=== PATIENT | male | born 1970 | race Hispanic/Latino ===

== ENCOUNTER 2022-03-18 23:35 | Observation (INO) | payer SELFPAY ==
[~2022-03-18] VITALS: Ht 167.6 cm; Wt 95.6 kg
[2022-03-19 00:27] LABS: CARBON DIOXIDE 28 mmol/L (21-32); CHLORIDE 106 mmol/L (101-111); CREATININE 0.9 mg/dL (0.5-1.5); GLOMERULAR FILTR. RATE CALC 94 mL/min (>60); GLUCOSE,RANDOM 97 mg/dL (70-105); POTASSIUM 3.7 mmol/L (3.5-5.1); SODIUM SERUM 140 mmol/L (136-145); UREA NITROGEN, BLOOD 10 mg/dL (7-18)
[2022-03-19 00:32] LABS: ACETAMINOPHEN < 1 mcg/mL (10-29); ALANINE AMINOTRANSFERASE 26 U/L (12-78); ALBUMIN 3.4 g/dL (3.5-5.0); ALCOHOL, BLOOD < 3 mg/dL (0-10); ASPARTATE AMINOTRANSFERASE 16 U/L (10-37); BASOPHILS % (AUTO) 0.4 % (0.0-5.0); EOSINOPHILS % (AUTO) 3.2 % (0.0-8.0); HEMATOCRIT 43.7 % (42-54); LYMPHOCYTES % (AUTO) 23.2 % (21.0-51.0); MEAN CORPUSCULAR HEMOGLOBIN 30.6 pg (27.0-33.0); MEAN CORPUSCULAR HGB CONC 35.2 g/dL (32.0-36.0); MEAN CORPUSCULAR VOLUME 86.9 fL (79-99); MONOCYTES % (AUTO) 8.3 % (3.0-13.0); NEUTROPHILS % (AUTO) 64.7 % (40.0-77.0); PLATELET COUNT (AUTO) 219 K/uL (130-400); RED BLOOD CELL COUNT(AUTO) 5.03 MIL/uL (4.50-6.20); RED CELL DISTRIBUTION WIDTH 11.8 % (11.0-15.5); SALICYLATE 2.8 mg/dL (2.8-20.0); TOTAL PROTEIN, SERUM 6.4 g/dL (6.0-8.3); WHITE BLOOD COUNT (AUTO) 5.6 K/uL (4.8-10.8)
[2022-03-19 01:00] LABS: APPEARANCE,URINE CLEAR (CLEAR); BILIRUBIN,URINE NEGATIVE (NEGATIVE); COLOR,URINE COLORLESS (YELLOW); GLUCOSE, URINE (UA) NEGATIVE (NEGATIVE); KETONES,URINE NEGATIVE (NEGATIVE); LEUKOCYTE ESTERASE ,URINE NEGATIVE Leu/uL (NEGATIVE); NITRATE,URINE NEGATIVE (NEGATIVE); OCCULT BLOOD,URINE NEGATIVE (NEGATIVE); PH,URINE 5.5 (5.0-8.0); PROTEIN,URINE NEGATIVE (NEGATIVE); UROBILINOGEN,URINE 0.2 mg/dL (0.2-1.0)
[2022-03-19 01:08] LABS: AMPHET/METH SCREEN,URINE POSITIVE (NEGATIVE); BARBITURATE SCREEN, URINE NEGATIVE (NEGATIVE); BENZODIAZEPINES SCREEN,URINE NEGATIVE (NEGATIVE); CANNABINOID SCREEN,URINE NEGATIVE (NEGATIVE); COCAINE SCREEN,URINE NEGATIVE (NEGATIVE); OPIATE SCREEN,URINE NEGATIVE (NEGATIVE); PHENCYCLIDINE SCREEN,URINE NEGATIVE (NEGATIVE)
[2022-03-19] MEDS ORDERED: GUAIFENESIN-DM 200/20 MG 10 ML PO PRN (06:00)
[2022-03-19] MEDS ORDERED: ACETAMINOPHEN 325 MG TAB PO PRN (06:00)
[2022-03-19] MEDS ORDERED: LACTULOSE 20 GM/30 ML UDCUP PO PRN (06:00)
[2022-03-19] MEDS ORDERED: DIPHENHYDRAMINE HCL 25 MG CAPSULE PO PRN (06:00)
[2022-03-19] MEDS ORDERED: NITROGLYCERIN 0.4 MG SL TAB SL PRN (06:00)
[2022-03-19] MEDS ORDERED: ONDANSETRON 4MG INJ IV PRN (06:00)
[2022-03-19] MEDS: 0.9%NACL 1000ML 1,000 ML IV SCH ×2 (08:00→19:20)
[2022-03-19] MEDS: FAMOTIDINE 20MG VIAL IV SCH ×2 (08:00→21:00)
[2022-03-19] MEDS ORDERED: MAGN400T25 PO (18:37)
[2022-03-19] MEDS ORDERED: QUET100T34 PO (18:37)
[2022-03-19] MEDS ORDERED: ESCI-8 PO (18:37)
[2022-03-19 19:00] VITALS: BP 132/77
[2022-03-19 23:00] VITALS: BP 106/64
[2022-03-20 03:29] VITALS: BP 112/72
[2022-03-20] MEDS: 0.9%NACL 1000ML 1,000 ML IV SCH (05:55)
[2022-03-20 07:37] VITALS: BP 109/70
[2022-03-20] MEDS: FAMOTIDINE 20MG VIAL IV SCH (08:45)
[2022-03-20 11:17] VITALS: BP 122/69
[2022-03-20 17:00] VITALS: BP 132/76
[2022-03-20 19:00] VITALS: BP 125/76
== END 2022-03-20 19:45 ==
LOC: EDH 23:35 → EDHIP 23:36 → 3DH 03-19 18:07
PROVIDERS: ADMIT Hospitalist; ATTEND Hospitalist
DX: R45.851 Suicidal ideations (principal); Z20.822 Contact with and (suspected) exposure to COVID-19; T43.591A Poisoning by other antipsychotics and neuroleptics, accidental (unintentional), initial encounter; T47.1X1A Poisoning by other antacids and anti-gastric-secretion drugs, accidental (unintentional), initial encounter; F41.9 Anxiety disorder, unspecified; F32.9 Major depressive disorder, single episode, unspecified; F10.10 Alcohol abuse, uncomplicated; R41.82 Altered mental status, unspecified; Z79.899 Other long term (current) drug therapy
CPT/HCPCS: 96374; 96361 ×2; 99285; 84484; 80053; 80305; 82140; 85025; 81003; 36415; 87635; 70450; 93005; 96376; G0378 ×37; G0481; C9803; J3490 ×2; J7030

== ENCOUNTER 2023-01-22 08:37 | Emergency (ER) | payer OTHER ==
[~2023-01-22] VITALS: Ht 167.6 cm; Wt 105.2 kg
[~2023-01-22 08:37] MED LIST: ESCI-8 PO; MAGN400T25 PO
[2023-01-22] MEDS ORDERED: FAMOTIDINE 20MG VIAL IV ONE (09:30)
[2023-01-22] MEDS ORDERED: METOCLOPRAMIDE 10 MG/2 ML VIAL IVP ONE (09:30)
[2023-01-22] MEDS ORDERED: LACTATED RINGERS 1000ML 1,000 ML IV ONE (09:30)
[2023-01-22] MEDS ORDERED: KETOROLAC 30MG VIAL (30MG/ML) IVP ONE (09:30)
[2023-01-22 09:34] LABS: BASOPHILS # (AUTO) 0.02 K/uL (0.00-0.20); BASOPHILS % (AUTO) 0.3 % (0.0-5.0); EOSINOPHILS # (AUTO) 0.15 K/uL (0.00-0.70); EOSINOPHILS % (AUTO) 2.5 % (0.0-8.0); IMMATURE GRANULOCYTE ABSOLUTE 0.03 K/uL (0-1); LYMPHOCYTES # (AUTO) 1.5 K/uL (1.0-4.8); LYMPHOCYTES % (AUTO) 24.3 % (21.0-51.0); MEAN CORPUSCULAR HEMOGLOBIN 30.5 pg (27.0-33.0); MEAN CORPUSCULAR HGB CONC 34.3 g/dL (32.0-36.0); MEAN CORPUSCULAR VOLUME 88.9 fL (79-99); MONOCYTES # (AUTO) 0.5 K/uL (0.1-1.0); MONOCYTES % (AUTO) 8.5 % (3.0-13.0); NEUTROPHILS # (AUTO) 3.8 K/uL (1.8-7.7); NEUTROPHILS % (AUTO) 63.9 % (40.0-77.0); PLATELET COUNT (AUTO) 213 K/uL (130-400); RED BLOOD CELL COUNT(AUTO) 4.95 MIL/uL (4.50-6.20); RED CELL DISTRIBUTION WIDTH 12.3 % (11.0-15.5)
[2023-01-22 09:46] LABS: ALBUMIN 3.4 g/dL (3.5-5.0); BILIRUBIN,TOTAL 0.5 mg/dL (0.2-1.0); TOTAL PROTEIN, SERUM 6.7 g/dL (6.0-8.3)
[2023-01-22 10:33] LABS: APPEARANCE,URINE CLEAR (CLEAR); BILIRUBIN,URINE NEGATIVE (NEGATIVE); COLOR,URINE LIGHT-YELLOW (YELLOW); GLUCOSE, URINE (UA) NEGATIVE (NEGATIVE); KETONES,URINE NEGATIVE (NEGATIVE); LEUKOCYTE ESTERASE ,URINE NEGATIVE Leu/uL (NEGATIVE); NITRATE,URINE NEGATIVE (NEGATIVE); OCCULT BLOOD,URINE NEGATIVE (NEGATIVE); PROTEIN,URINE NEGATIVE (NEGATIVE); UROBILINOGEN,URINE 0.2 mg/dL (0.2-1.0)
[2023-01-22 10:39] LABS: ADD UA MICROSCOPIC NO
[2023-01-22] MEDS ORDERED: IOHEXOL 350 MG/ML 100ML INFUS..BTL IV ONE (11:50)
[2023-01-22 13:26] VITALS: BP 131/76; PULSE 71; RESP 16; O2SAT 99
== END 2023-01-22 13:28 | disposition home or self-care (01) ==
LOC: EDH 08:37
DX: K92.1 Melena (principal); K46.9 Unspecified abdominal hernia without obstruction or gangrene; Z79.899 Other long term (current) drug therapy; Z98.890 Other specified postprocedural states
CPT/HCPCS: 99285; 74178; 96374; 96375; 82270; 84484; 80053; 85025; 81003; 36415; 93005; J7120; J3490; J1885; J2765; Q9967

== ENCOUNTER 2024-04-19 20:00 | Emergency (ER) | payer BC ==
[~2024-04-19] VITALS: Ht 167.6 cm; Wt 100.2 kg
[2024-04-19 20:03] VITALS: BP 144/92; PULSE 68; RESP 20; TEMP 97
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
[2024-04-19] MEDS ORDERED: FAMOTIDINE 20MG VIAL IV ONE (20:30)
[2024-04-19 20:47] LABS: BASOPHILS # (AUTO) 0.03 K/uL (0.00-0.20); BASOPHILS % (AUTO) 0.4 % (0.0-5.0); EOSINOPHILS # (AUTO) 0.28 K/uL (0.00-0.70); EOSINOPHILS % (AUTO) 3.9 % (0.0-8.0); IMMATURE GRANULOCYTE ABSOLUTE 0.03 K/uL (0-1); LYMPHOCYTES # (AUTO) 1.2 K/uL (1.0-4.8); LYMPHOCYTES % (AUTO) 17.4 % (21.0-51.0); MEAN CORPUSCULAR HEMOGLOBIN 28.9 pg (27.0-33.0); MEAN CORPUSCULAR HGB CONC 32.7 g/dL (32.0-36.0); MEAN CORPUSCULAR VOLUME 88.4 fL (79-99); MONOCYTES # (AUTO) 0.6 K/uL (0.1-1.0); MONOCYTES % (AUTO) 8.4 % (3.0-13.0); NEUTROPHILS # (AUTO) 4.9 K/uL (1.8-7.7); NEUTROPHILS % (AUTO) 69.5 % (40.0-77.0); PLATELET COUNT (AUTO) 249 K/uL (130-400); RED BLOOD CELL COUNT(AUTO) 5.09 MIL/uL (4.50-6.20); RED CELL DISTRIBUTION WIDTH 12.7 % (11.0-15.5); WHITE BLOOD COUNT (AUTO) 7.1 K/uL (4.8-10.8)
[2024-04-19 20:56] LABS: POTASSIUM 4.5 mmol/L (3.5-5.1)
== END 2024-04-20 01:01 | disposition left against medical advice (07) ==
LOC: EDH 20:00
DX: K62.5 Hemorrhage of anus and rectum (principal); R10.84 Generalized abdominal pain; R11.2 Nausea with vomiting, unspecified; Z79.899 Other long term (current) drug therapy; Z98.890 Other specified postprocedural states
CPT/HCPCS: 36415; 80048; 83690; 85025; 99283

== ENCOUNTER 2025-01-27 12:07 | Inpatient (IN) | payer BC ==
[~2025-01-27] VITALS: Ht 167.6 cm; Wt 60.9 kg
[~2025-01-27 12:07] MED LIST changes: +DICY20TA2 PO; +DOCU-116 PO; -ESCI-8 PO; +FERR325T29 PO; +GABA-529 PO; -MAGN400T25 PO; +MELA1TAB52 PO; +METH-662 PO; +ONDA-243 PO; +PANT40TA54 PO; +TRAM100T34 PO
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
[2025-01-27] MEDS: 0.9%NACL 1000ML 1,000 ML IV ONE (12:46)
[2025-01-27] MEDS: FAMOTIDINE 20MG VIAL IV ONE (12:46)
[2025-01-27 12:55] LABS: IMMATURE GRANULOCYTE ABSOLUTE 0.01 K/uL (0-1); NUCLEATED RED BLOOD CELLS 0.0 % (0.0-0.19); PLATELET COUNT (AUTO) 333 K/uL (130-400); RED BLOOD CELL COUNT(AUTO) 5.39 MIL/uL (4.50-6.20); RED CELL DISTRIBUTION WIDTH 15.3 % (11.0-15.5); WHITE BLOOD COUNT (AUTO) 4.1 K/uL (4.8-10.8)
[2025-01-27 13:04] LABS: CREATININE 0.9 mg/dL (0.5-1.3); GLOMERULAR FILTR. RATE CALC 100.0 mL/min (>90); GLUCOSE,RANDOM 102.0 mg/dL (70-105); SODIUM SERUM 136.0 mmol/L (136-145); UREA NITROGEN, BLOOD 24.0 mg/dL (7-18)
--- NOTE | 2025-01-27 13:13 | EKG ---
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
[2025-01-27] MEDS ORDERED: IOHEXOL-350 75 ML VIAL IV ONE (13:54)
[2025-01-27 14:11] LABS: APPEARANCE,URINE CLEAR (CLEAR); GLUCOSE, URINE (UA) NEGATIVE (NEGATIVE); LEUKOCYTE ESTERASE ,URINE 75 Leu/uL (NEGATIVE); NITRATE,URINE NEGATIVE (NEGATIVE); OCCULT BLOOD,URINE NEGATIVE (NEGATIVE)
[2025-01-27 14:13] LABS: ADD UA MICROSCOPIC YES
--- NOTE | 2025-01-27 14:17 | HMCIMG ---
CT ABDOMEN/PELVIS W/CONTRAST REASON: DIFFUSE ABDOMINAL PAIN WITH NAUSEA VOMITING FOUR DAYS HISTORY OF SBO COMPARISON: None. FINDINGS: Lung bases are clear.. There is small left-sided pleural effusion. There are no focal liver lesions. There are normal-appearing kidneys.. Spleen and pancreas appear unremarkable. The gallbladder appears normal as well. The small bowel is a very dilated and distended suggesting of small bowel obstruction. There is no evidence of any free air. There is no transition zone identified.. This includes normal appearance of the appendix There is no evidence of free fluid or intraperitoneal air. There are no focal fluid collections. Aorta and retroperitoneum appear normal as do pelvic soft tissue structures. The anterior abdominal wall is intact. Osseous structures appear unremarkable. The prostate and seminal vesicle appears to be normal. IMPRESSION: 1. Severe small bowel obstruction with dilatation of small bowels with air-fluid levels.. CT was performed with one or more following dose reduction techniques: automated exposure control, adjustment of the mA and kv according to patient's size, or use of a iterative reconstruction technique.
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
[2025-01-27] MEDS ORDERED: 0.9%NACL 50ML IV SCH (16:00)
[2025-01-27] MEDS ORDERED: PoTASSium chl 10% ELIXIR 20MEQ 20 MEQ/15 ML UDCUP PO PRN (16:00)
[2025-01-27] MEDS: ZOSYN 3.375GM +NS 50ML IVPB SCH (16:41)
[2025-01-27] MEDS: 0.9%NACL 1000ML 1,000 ML IV SCH (16:42)
--- NOTE | 2025-01-27 18:41 | NUR ---
DR. GAGE BY TO SEE PT.
--- NOTE | 2025-01-27 19:00 | NUR ---
14F NG TUBE PLACED , CONFIRMED BY XRAY PER DR ECKERT ORDER
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
--- NOTE | 2025-01-27 19:45 | HMCIMG ---
EXAM: Abdomen radiograph 1 view HISTORY: NGT placement COMPARISON: None TECHNIQUE: Supine view of the abdomen FINDINGS: Enteric tube tip overlies the stomach. No small bowel dilatation. Air seen in the colon. Contrast seen in the ureters and bladder. Degenerative changes. IMPRESSION: Enteric tube tip overlies the stomach. /[place]
[2025-01-27] MEDS: FAMOTIDINE 20MG VIAL IV SCH (20:47)
[2025-01-28] VITALS (9 sets, daily range): BP systolic 100–136; BP diastolic 64–84; PULSE 44–61; RESP 18–20; TEMP 96.6–98.1; O2SAT 97–100
[2025-01-28 00:02] LABS: SARS-CoV-2, RNA, NAAT NEGATIVE SARS CoV-2 (NEGATIVE)
--- NOTE | 2025-01-28 02:56 | NUR ---
PATIENT REPORTS HE DOES NOT TAKE PRESCRIBED MEDICATIONS
[2025-01-28] MEDS: ZOSYN 3.375GM +NS 50ML IVPB SCH (04:52)
[2025-01-28 07:16] LABS: IMMATURE GRANULOCYTE ABSOLUTE 0.02 K/uL (0-1); NUCLEATED RED BLOOD CELLS 0.0 % (0.0-0.19); PLATELET COUNT (AUTO) 258 K/uL (130-400); RED BLOOD CELL COUNT(AUTO) 4.71 MIL/uL (4.50-6.20); RED CELL DISTRIBUTION WIDTH 15.6 % (11.0-15.5); WHITE BLOOD COUNT (AUTO) 4.9 K/uL (4.8-10.8)
[2025-01-28 07:26] LABS: CREATININE 1.0 mg/dL (0.5-1.3); GLOMERULAR FILTR. RATE CALC 88.0 mL/min (>90); GLUCOSE,RANDOM 84.0 mg/dL (70-105); SODIUM SERUM 141.0 mmol/L (136-145); UREA NITROGEN, BLOOD 16.0 mg/dL (7-18)
[2025-01-28] MEDS ORDERED: FERROUS SULFATE 325 MG TABLET.DR PO SCH (09:00)
[2025-01-28] MEDS ORDERED: DICYCLOMINE HCL 20 MG TAB PO SCH (09:00)
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
--- NOTE | 2025-01-28 09:57 | HMCIMG ---
CT ABDOMEN/PELVIS W/O CONTRAST REASON: SBO COMPARISON: None. FINDINGS: Lung bases demonstrate small left-sided pleural effusion. The remaining lung barton are clear. There is a nasogastric tube with the tip in the stomach. . There are no focal liver lesions. There are normal-appearing kidneys.. Spleen and pancreas appear unremarkable. The gallbladder demonstrates sludge and small stones seen in the dependent portion of the gallbladder lumen.. Bowel loops appear unremarkable. This includes normal appearance of the appendix There is no evidence of free fluid or intraperitoneal air. There are no focal fluid collections. Aorta and retroperitoneum appear normal as do pelvic soft tissue structures. The anterior abdominal wall is intact. Osseous structures appear unremarkable. The prostate and seminal vesicle appears to be normal. The urinary bladder has contrast from prior contrast study. There is subcutaneous fat stranding suggesting of anasarca. Patient appears to be cachectic. IMPRESSION: 1. Cholelithiasis 2. Anasarca. 3. There is a nasogastric tube with the tip in the stomach. 4. Small left-sided pleural effusion. CT was performed with one or more following dose reduction techniques: automated exposure control, adjustment of the mA and kv according to patient's size, or use of a iterative reconstruction technique.
--- NOTE | 2025-01-28 11:33 | NUR ---
DCP:HOME Pt currently lives with his ex- Olivia Vasquez [phone]. Pt does not have any DME, home health, or provider services. Pt states that he is able to complete ADLs independently. PCP is Dr. Sams and uses [facility] for any RX needs. At [place] pt will want to go home and family can assist with transportation. Addendum: 01/28/25 at 1134 by COREY PHAN SS Amended: Links added.
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
--- NOTE | 2025-01-28 12:33 | NUR ---
MD HARSH ALVAREZ AT BEDSIDE. PER DR. ALVAREZ HR IS BASELINE. PT EXERCISES AT HOME. PER DR. ALVAREZ, OKAY TO GIVE MORPHINE FOR PAIN. NO FURTHER ORDERS AT THIS TIME.
[2025-01-29] VITALS (8 sets, daily range): BP systolic 112–132; BP diastolic 72–93; PULSE 48–55; RESP 18–20; TEMP 97.5–98.4; O2SAT 96–99
[2025-01-29 05:25] LABS: IMMATURE GRANULOCYTE ABSOLUTE 0.01 K/uL (0-1); NUCLEATED RED BLOOD CELLS 0.0 % (0.0-0.19); PLATELET COUNT (AUTO) 251 K/uL (130-400); RED BLOOD CELL COUNT(AUTO) 4.51 MIL/uL (4.50-6.20); RED CELL DISTRIBUTION WIDTH 15.2 % (11.0-15.5); WHITE BLOOD COUNT (AUTO) 4.5 K/uL (4.8-10.8)
[2025-01-29 05:40] LABS: ASPARTATE AMINOTRANSFERASE 14.0 U/L (10-37); CREATININE 1.0 mg/dL (0.5-1.3); GLOMERULAR FILTR. RATE CALC 88.0 mL/min (>90); GLUCOSE,RANDOM 77.0 mg/dL (70-105); SODIUM SERUM 141.0 mmol/L (136-145); TOTAL PROTEIN, SERUM 4.7 g/dL (6.0-8.3); UREA NITROGEN, BLOOD 15.0 mg/dL (7-18)
[2025-01-29] MEDS: ENOXAPARIN SODIUM 30 MG/0.3 ML SQ SCH (08:49)
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
--- NOTE | 2025-01-29 12:30 | PN ---
GENERAL SURGERY PROGRESS NOTE Date/Time Patient Seen: [January 29, 2025 ] Problem List: [Partial bowel obstruction ] Interval History: [Patient had flatus and small bowel movement. A CT scan was repeated. Still shows some dilated small loops of bowel. NG tube output is minimal. Patient denies any abdominal pain. ] Current Medications Medications (Trade) Dose Ordered Sig/Kenneth Route Start Time Stop Time Status Last Admin Dose Admin Dicyclomine HCl (Bentyl 20mg Tab) 20 mg QID PO 01/28/25 09:00 01/28/25 09:23 DC Docusate Sodium (COLace 100MG CAP) 100 mg BID PO 01/28/25 09:00 01/28/25 09:22 DC Enoxaparin Sodium (Lovenox) 30 mg DAILY SQ 01/29/25 09:00 02/28/25 08:59 01/29/25 08:49 30 MG Famotidine (Pepcid 20mg Vial) 20 mg BID IV 01/27/25 21:00 01/28/25 06:32 DC 01/27/25 20:47 20 MG Ferrous Sulfate (Ferrous Sulfate) 325 mg DAILY PO 01/28/25 09:00 01/28/25 09:21 DC Gabapentin (NEURontin 100 mg CAP) 100 mg TID PO 01/28/25 09:00 01/28/25 09:21 DC Pantoprazole Sodium (PROTonix 40MG TAB) 40 mg DAILY PO 01/28/25 09:00 01/28/25 09:21 DC Piperacillin Sod/ Tazobactam Sod (Zosyn 3.375gm+NS 50ml) 3.375 gm ONCE IVPB 01/27/25 16:30 01/27/25 22:30 DC 01/27/25 16:41 3.375 GM Piperacillin Sod/ Tazobactam Sod (Zosyn 3.375gm+NS 50ml) 3.375 gm ZOSY8 IVPB 01/28/25 05:00 02/07/25 04:59 01/29/25 04:46 3.375 GM Sodium Chloride 1,000 ml @ 125 mls/hr Q8H IV 01/27/25 16:00 02/26/25 15:59 01/29/25 01:32 125 MLS/HR Sodium Chloride (NS 50ml) 50 ml AD IV 01/27/25 16:00 01/28/25 06:31 DC Physical Examination: Awake, alert, oriented x3 Unlabored Regular rate and rhythm Abdomen soft, nontender Vital Signs (last 8hr) Date Time Temp Pulse Resp B/P (MAP) Pulse Ox O2 Delivery O2 Flow Rate FiO2 01/29/25 08:37 97.9 48 18 112/75 99 Room Air Laboratory: [ ] Hematology Labs: Test 01/29/25 04:53 Range/Units White Blood Count 4.5 L 4.8-10.8 K/uL Red Blood Count 4.51 4.50-6.20 MIL/uL Hemoglobin 12.7 L 14.0-18.0 g/dL Hematocrit 37.8 L 42-54 % Mean Corpuscular Volume 83.8 79-99 fL Mean Corpuscular Hemoglobin 28.2 27.0-33.0 pg Mean Corpuscular Hemoglobin Concent 33.6 32.0-36.0 g/dL Red Cell Distribution Width 15.2 11.0-15.5 % Platelet Count 251 130-400 K/uL Mean Platelet Volume 9.4 7.5-10.5 fL Immature Granulocyte % (Auto) 0.2 0-1 % Neutrophils (%) (Auto) 68.3 40.0-77.0 % Lymphocytes (%) (Auto) 17.8 L 21.0-51.0 % Monocytes (%) (Auto) 9.1 3.0-13.0 % Eosinophils (%) (Auto) 4.2 0.0-8.0 % Basophils (%) (Auto) 0.4 0.0-5.0 % Neutrophils # (Auto) 3.1 1.8-7.7 K/uL Lymphocytes # (Auto) 0.8 L 1.0-4.8 K/uL Monocytes # (Auto) 0.4 0.1-1.0 K/uL Eosinophils # (Auto) 0.19 0.00-0.70 K/uL Basophils # (Auto) 0.02 0.00-0.20 K/uL Absolute Immature Granulocyte (auto 0.01 0-1 K/uL Nucleated Red Blood Cells 0.0 0.0-0.19 % Chemistry Labs: Test 01/29/25 11:14 01/29/25 04:53 01/27/25 16:45 01/27/25 12:45 Range/Units Whole Blood Glucose 86 70-110 MG/DL Sodium Level 141 136-145 mmol/L Potassium Level 3.2 L 3.5-5.1 mmol/L Chloride Level 108 101-111 mmol/L Carbon Dioxide Level 28 21-32 mmol/L Blood Urea Nitrogen 15 7-18 mg/dL Creatinine 1.0 0.5-1.3 mg/dL Glomerular Filtration Rate Calc 88 >90 mL/min Random Glucose 77 70-105 mg/dL Total Calcium 8.8 8.5-10.1 mg/dL Magnesium Level 1.90 1.80-2.40 mg/dL Total Bilirubin 0.5 0.2-1.0 mg/dL Aspartate Amino Transf (AST/SGOT) 14 10-37 U/L Alanine Aminotransferase (ALT/SGPT) 15 12-78 U/L Alkaline Phosphatase 78 50-136 U/L Total Protein 4.7 L 6.0-8.3 g/dL Albumin 2.1 L 3.5-5.0 g/dL Lactic Acid Level 1.2 0.8-2.5 mmol/L C-Reactive Protein, Quantitative 0.80 0.5-3.0 mg/L Procalcitonin < 0.05 L 0.05-0.5 ng/mL Thyroid Stimulating Hormone (TSH) 1.06 0.36-3.74 uIU/mL Hemoglobin A1c 5.2 4.0-6.0 % Estimated Average Glucose (eAG) 103 70-126 mg/dL Lipase 15 L 16-77 U/L Diagnostics / Radiology: [Copy/Paste Echos/Imaging Report here] Impression and Plan: [Patient with a partial bowel obstruction. Continue NG tube for now. Ambulate. Pulmonary toilet. We will try an NG tube clamp trial tomorrow. ] STANLEY ALLISON MD Jan 29, 2025 12:30
--- NOTE | 2025-01-29 20:40 | NUR ---
MEDS PT BACK IN ROOM AFTER WALKING THE FLOOR. SHIFT ASSESSMENT DONE, PLEASE REFER TO CHART. DUE MEDS ADMINISTERED, TOLERATED WELL. KEPT RESTED AND COMFORTABLE IN BED. CALL LIGHT WITHIN REACH.
[2025-01-29] MEDS: MAGNESIUM 2GM PREMIX 50ML 50 ML IV PRN (20:41)
[2025-01-30] VITALS (8 sets, daily range): BP systolic 107–125; BP diastolic 63–81; PULSE 45–80; RESP 18–20; TEMP 97.7–98.2; O2SAT 95–96
--- NOTE | 2025-01-30 01:39 | NUR ---
PAIN PT AWAKENED AND CLAIMS OF ABDOMINAL PAINS. MEDICATED WITH MORPHINE IV. RE-POSITIONED IN BED WITH HOB ELEVATED. KEPT NPO WITH NGT TO LIS. WILL RE-ASSESS PT.
--- NOTE | 2025-01-30 05:00 | NUR ---
ROUNDS PT SLEPT AT INTERVALS DURING THE SHIFT. NO DISTRESS NOTED. KEPT COMFORTABLE IN BED WITH HOB ELEVATED. DUE AMOL FONTAINE. FOR MORE CARE.
[2025-01-30 06:37] LABS: IMMATURE GRANULOCYTE ABSOLUTE 0.01 K/uL (0-1); NUCLEATED RED BLOOD CELLS 0.0 % (0.0-0.19); PLATELET COUNT (AUTO) 260 K/uL (130-400); RED BLOOD CELL COUNT(AUTO) 4.61 MIL/uL (4.50-6.20); RED CELL DISTRIBUTION WIDTH 15.3 % (11.0-15.5); WHITE BLOOD COUNT (AUTO) 4.2 K/uL (4.8-10.8)
[2025-01-30 06:55] LABS: ASPARTATE AMINOTRANSFERASE 15.0 U/L (10-37); CREATININE 1.0 mg/dL (0.5-1.3); GLOMERULAR FILTR. RATE CALC 88.0 mL/min (>90); GLUCOSE,RANDOM 98.0 mg/dL (70-105); SODIUM SERUM 145.0 mmol/L (136-145); TOTAL PROTEIN, SERUM 4.9 g/dL (6.0-8.3); UREA NITROGEN, BLOOD 11.0 mg/dL (7-18)
--- NOTE | 2025-01-30 13:28 | PN ---
GENERAL SURGERY PROGRESS NOTE Date/Time Patient Seen: [January 30, 2025 ] Problem List: [Partial bowel obstruction ] Interval History: [Patient had two bowel movements yesterday after Dulcolax suppository. NG tube clamp trial overnight has negligible output.. ] Current Medications Medications (Trade) Dose Ordered Sig/Kenneth Route Start Time Stop Time Status Last Admin Dose Admin Dicyclomine HCl (Bentyl 20mg Tab) 20 mg QID PO 01/28/25 09:00 01/28/25 09:23 DC Docusate Sodium (COLace 100MG CAP) 100 mg BID PO 01/28/25 09:00 01/28/25 09:22 DC Enoxaparin Sodium (Lovenox) 30 mg DAILY SQ 01/29/25 09:00 02/28/25 08:59 01/30/25 08:58 30 MG Famotidine (Pepcid 20mg Vial) 20 mg BID IV 01/27/25 21:00 01/28/25 06:32 DC 01/27/25 20:47 20 MG Ferrous Sulfate (Ferrous Sulfate) 325 mg DAILY PO 01/28/25 09:00 01/28/25 09:21 DC Gabapentin (NEURontin 100 mg CAP) 100 mg TID PO 01/28/25 09:00 01/28/25 09:21 DC Pantoprazole Sodium (PROTonix 40MG TAB) 40 mg DAILY PO 01/28/25 09:00 01/28/25 09:21 DC Piperacillin Sod/ Tazobactam Sod (Zosyn 3.375gm+NS 50ml) 3.375 gm ONCE IVPB 01/27/25 16:30 01/27/25 22:30 DC 01/27/25 16:41 3.375 GM Piperacillin Sod/ Tazobactam Sod (Zosyn 3.375gm+NS 50ml) 3.375 gm [id number] IVPB 01/28/25 05:00 02/07/25 04:59 01/30/25 04:54 3.375 GM Sodium Chloride 1,000 ml @ 125 mls/hr Q8H IV 01/27/25 16:00 02/26/25 15:59 01/30/25 04:56 125 MLS/HR Sodium Chloride (NS 50ml) 50 ml AD IV 01/27/25 16:00 01/28/25 06:31 DC Physical Examination: Awake, alert, oriented x3 Unlabored Regular rate and rhythm Abdomen soft, nontender, nondistended Vital Signs (last 8hr) Date Time Temp Pulse Resp B/P (MAP) Pulse Ox O2 Delivery O2 Flow Rate FiO2 01/30/25 12:00 98.1 45 18 115/69 98 Room Air 01/30/25 08:00 98.2 80 18 125/81 98 Laboratory: [ ] Hematology Labs: Test 01/30/25 06:07 Range/Units White Blood Count 4.2 L 4.8-10.8 K/uL Red Blood Count 4.61 4.50-6.20 MIL/uL Hemoglobin 13.1 L 14.0-18.0 g/dL Hematocrit 38.9 L 42-54 % Mean Corpuscular Volume 84.4 79-99 fL Mean Corpuscular Hemoglobin 28.4 27.0-33.0 pg Mean Corpuscular Hemoglobin Concent 33.7 32.0-36.0 g/dL Red Cell Distribution Width 15.3 11.0-15.5 % Platelet Count 260 130-400 K/uL Mean Platelet Volume 9.5 7.5-10.5 fL Immature Granulocyte % (Auto) 0.2 0-1 % Neutrophils (%) (Auto) 62.3 40.0-77.0 % Lymphocytes (%) (Auto) 21.9 21.0-51.0 % Monocytes (%) (Auto) 9.6 3.0-13.0 % Eosinophils (%) (Auto) 5.3 0.0-8.0 % Basophils (%) (Auto) 0.7 0.0-5.0 % Neutrophils # (Auto) 2.6 1.8-7.7 K/uL Lymphocytes # (Auto) 0.9 L 1.0-4.8 K/uL Monocytes # (Auto) 0.4 0.1-1.0 K/uL Eosinophils # (Auto) 0.22 0.00-0.70 K/uL Basophils # (Auto) 0.03 0.00-0.20 K/uL Absolute Immature Granulocyte (auto 0.01 0-1 K/uL Nucleated Red Blood Cells 0.0 0.0-0.19 % Chemistry Labs: Test 01/30/25 06:07 01/29/25 11:14 Range/Units Sodium Level 145 136-145 mmol/L Potassium Level 3.6 3.5-5.1 mmol/L Chloride Level 110 101-111 mmol/L Carbon Dioxide Level 31 21-32 mmol/L Blood Urea Nitrogen 11 7-18 mg/dL Creatinine 1.0 0.5-1.3 mg/dL Glomerular Filtration Rate Calc 88 >90 mL/min Random Glucose 98 70-105 mg/dL Total Calcium 8.8 8.5-10.1 mg/dL Magnesium Level 2.20 1.80-2.40 mg/dL Total Bilirubin 0.5 0.2-1.0 mg/dL Aspartate Amino Transf (AST/SGOT) 15 10-37 U/L Alanine Aminotransferase (ALT/SGPT) 14 12-78 U/L Alkaline Phosphatase 71 50-136 U/L Total Protein 4.9 L 6.0-8.3 g/dL Albumin 2.1 L 3.5-5.0 g/dL Whole Blood Glucose 86 70-110 MG/DL Diagnostics / Radiology: [Copy/Paste Echos/Imaging Report here] Impression and Plan: [We will continue the NG tube clamped. We will give the patient a bowel regimen. The patient continues to have bowel function we will then DC the NG tube and start him on clear liquids. Ambulate. Pulmonary toilet. ] STANLEY ALLISON MD Jan 30, 2025 13:28
[2025-01-30] MEDS: LACTULOSE 20 GM/30 ML UDCUP PO ONE (14:33)
[2025-01-30] MEDS: MAGNESIUM HYDROXIDE 30 ML/UDCUP PO ONE (14:34)
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
--- NOTE | 2025-01-30 16:57 | NUR ---
NG TUBE PT REPORTS GAS. SMALL LIQUID BM NOTED IN TOILET. DR. ALLISON MADE AWARE. PER DR. ALLISON TO CHECK OUTPUT. OUTPUT: 250ML DARK GREEN COLOR. DR. BALLARD MADE AWARE. PER DR. BALLARD TO KEEP NGT IN PLACE. TO LEAVE CLAMPED, IF PT IS HAVING ABDOMINAL PAIN TO CONNECT TO SUCTION. PT REPORTS ABDOMINAL PAIN. PT CONNECTED TO LOW INTERMITTENT SUCTION AT THIS TIME,
--- NOTE | 2025-01-30 19:40 | NUR ---
MEDS PT IS IN BED ALREADY RESTING. SHIFT ASSESSMENT DONE, PLEASE REFER TO CHART. DUE DEISY FONTAINE. KEPT ON NPO STATUS. KEPT COMFORTABLE IN BED WITH HOB ELEVATED. CALL LIGHT WITHIN REACH.
[2025-01-31] VITALS (9 sets, daily range): BP systolic 118–133; BP diastolic 71–88; PULSE 50–67; RESP 18–21; TEMP 97.6–98.4; O2SAT 97–99
--- NOTE | 2025-01-31 05:00 | NUR ---
PIV PT WALKED TO NURSE'S STATION AND SHOWED DIRECTOR OF ANNUAL GIVING LEAKING PIV. PT REQUESTED TO SHOWER YET BEFORE RE-INSERTION OF PIV. PIV DISCONTINUED WITH CATHETER INTACT. PCP IN TO ASSIST WITH LINEN AND FOR PT'S SHOWER.
--- NOTE | 2025-01-31 05:15 | NUR ---
PIV TRIED TO RE-INSERT PIV BUT FAILED. ASKED JASON ROLLE TO TRY RE-INSERTION AND SUCCESSFULLY INSERTED G20 TO ALISIA. RE-STARTED IVF AND IV ZOSYN INFUSION. FOR MORE CARE.
[2025-01-31 05:41] LABS: NUCLEATED RED BLOOD CELLS 0.0 % (0.0-0.19); PLATELET COUNT (AUTO) 236.0 K/uL (130-400); RED BLOOD CELL COUNT(AUTO) 4.49 MIL/uL (4.50-6.20); RED CELL DISTRIBUTION WIDTH 15.2 % (11.0-15.5); WHITE BLOOD COUNT (AUTO) 4.2 K/uL (4.8-10.8)
[2025-01-31 06:13] LABS: ASPARTATE AMINOTRANSFERASE 14.0 U/L (10-37); CREATININE 1.0 mg/dL (0.5-1.3); GLOMERULAR FILTR. RATE CALC 88.0 mL/min (>90); GLUCOSE,RANDOM 95.0 mg/dL (70-105); SODIUM SERUM 147.0 mmol/L (136-145); TOTAL PROTEIN, SERUM 4.9 g/dL (6.0-8.3); UREA NITROGEN, BLOOD 7.0 mg/dL (7-18)
--- NOTE | 2025-01-31 06:30 | NUR ---
[facility] LAB CALLED AND REPORTED CRITICAL VALUE OF POTASSIUM AT 3.0. STARTED ON POTASSIUM IV INFUSION. KEPT RESTED IN BED. FOR MORE CARE.
--- NOTE | 2025-01-31 11:50 | PN ---
GENERAL SURGERY PROGRESS NOTE Date/Time Patient Seen: [ January 31, 2025] Problem List: [Partial bowel obstruction ] Interval History: [Patient appears to have responded with a bowel regimen. Patient had multiple bowel movements of different caliber. Patient indicates his abdominal pain has resolved. NG tube output appears to be just mucus. ] Current Medications Medications (Trade) Dose Ordered Sig/Kenneth Route Start Time Stop Time Status Last Admin Dose Admin Dicyclomine HCl (Bentyl 20mg Tab) 20 mg QID PO 01/28/25 09:00 01/28/25 09:23 DC Docusate Sodium (COLace 100MG CAP) 100 mg BID PO 01/28/25 09:00 01/28/25 09:22 DC Enoxaparin Sodium (Lovenox) 30 mg DAILY SQ 01/29/25 09:00 02/28/25 08:59 01/31/25 08:39 30 MG Famotidine (Pepcid 20mg Vial) 20 mg BID IV 01/27/25 21:00 01/28/25 06:32 DC 01/27/25 20:47 20 MG Ferrous Sulfate (Ferrous Sulfate) 325 mg DAILY PO 01/28/25 09:00 01/28/25 09:21 DC Gabapentin (NEURontin 100 mg CAP) 100 mg TID PO 01/28/25 09:00 01/28/25 09:21 DC Pantoprazole Sodium (PROTonix 40MG TAB) 40 mg DAILY PO 01/28/25 09:00 01/28/25 09:21 DC Piperacillin Sod/ Tazobactam Sod (Zosyn 3.375gm+NS 50ml) 3.375 gm ONCE IVPB 01/27/25 16:30 01/27/25 22:30 DC 01/27/25 16:41 3.375 GM Piperacillin Sod/ Tazobactam Sod (Zosyn 3.375gm+NS 50ml) 3.375 gm ZOSY8 IVPB 01/28/25 05:00 02/07/25 04:59 01/31/25 04:18 3.375 GM Sodium Chloride 1,000 ml @ 125 mls/hr Q8H IV 01/27/25 16:00 02/26/25 15:59 01/31/25 11:28 125 MLS/HR Sodium Chloride (NS 50ml) 50 ml AD IV 01/27/25 16:00 01/28/25 06:31 DC Physical Examination: Awake, alert, oriented x3 Unlabored Regular rate and rhythm Abdomen soft, nontender, nondistended Vital Signs (last 8hr) Date Time Temp Pulse Resp B/P (MAP) Pulse Ox O2 Delivery O2 Flow Rate FiO2 01/31/25 11:12 98.1 52 18 133/81 100 Room Air 01/31/25 08:00 98.1 50 18 125/82 97 Room Air 01/31/25 04:00 98.1 67 20 121/80 97 Room Air Laboratory: [ ] Hematology Labs: Test 01/31/25 05:31 01/30/25 06:07 Range/Units White Blood Count 4.2 L 4.8-10.8 K/uL Red Blood Count 4.49 L 4.50-6.20 MIL/uL Hemoglobin 12.6 L 14.0-18.0 g/dL Hematocrit 37.6 L 42-54 % Mean Corpuscular Volume 83.7 79-99 fL Mean Corpuscular Hemoglobin 28.1 27.0-33.0 pg Mean Corpuscular Hemoglobin Concent 33.5 32.0-36.0 g/dL Red Cell Distribution Width 15.2 11.0-15.5 % Platelet Count 236 130-400 K/uL Mean Platelet Volume 9.1 7.5-10.5 fL Nucleated Red Blood Cells 0.0 0.0-0.19 % Immature Granulocyte % (Auto) 0.2 0-1 % Neutrophils (%) (Auto) 62.3 40.0-77.0 % Lymphocytes (%) (Auto) 21.9 21.0-51.0 % Monocytes (%) (Auto) 9.6 3.0-13.0 % Eosinophils (%) (Auto) 5.3 0.0-8.0 % Basophils (%) (Auto) 0.7 0.0-5.0 % Neutrophils # (Auto) 2.6 1.8-7.7 K/uL Lymphocytes # (Auto) 0.9 L 1.0-4.8 K/uL Monocytes # (Auto) 0.4 0.1-1.0 K/uL Eosinophils # (Auto) 0.22 0.00-0.70 K/uL Basophils # (Auto) 0.03 0.00-0.20 K/uL Absolute Immature Granulocyte (auto 0.01 0-1 K/uL Chemistry Labs: Test 01/31/25 05:31 Range/Units Sodium Level 147 H 136-145 mmol/L Potassium Level 3.0 *L 3.5-5.1 mmol/L Chloride Level 110 101-111 mmol/L Carbon Dioxide Level 34 H 21-32 mmol/L Blood Urea Nitrogen 7 7-18 mg/dL Creatinine 1.0 0.5-1.3 mg/dL Glomerular Filtration Rate Calc 88 >90 mL/min Random Glucose 95 70-105 mg/dL Total Calcium 9.3 8.5-10.1 mg/dL Magnesium Level 2.20 1.80-2.40 mg/dL Total Bilirubin 0.4 0.2-1.0 mg/dL Aspartate Amino Transf (AST/SGOT) 14 10-37 U/L Alanine Aminotransferase (ALT/SGPT) 16 12-78 U/L Alkaline Phosphatase 67 50-136 U/L Total Protein 4.9 L 6.0-8.3 g/dL Albumin 2.2 L 3.5-5.0 g/dL Diagnostics / Radiology: [Copy/Paste Echos/Imaging Report here] Impression and Plan: [Patient appears to have responded to conservative management. The plan on DC his NG tube and start him on sips of clears. We will keep patient on sips of clears for day and see how he does. If he tolerates that patient be discharged home on a clear liquid diet. He can advance as tolerated at home. Ambulate. Pulmonary toilet. ] STANLEY ALLISON MD Jan 31, 2025 11:50
--- NOTE | 2025-01-31 12:23 | NUR ---
NGT REMOVED: as per md order removed NGT to to rt nare eitan. well cath tip intact denies nausea
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
[2025-02-01 03:29] VITALS: BP 147/83; PULSE 53; RESP 18; TEMP 98.6
[2025-02-01 04:06] LABS: NUCLEATED RED BLOOD CELLS 0.0 % (0.0-0.19); PLATELET COUNT (AUTO) 237.0 K/uL (130-400); RED BLOOD CELL COUNT(AUTO) 4.48 MIL/uL (4.50-6.20); RED CELL DISTRIBUTION WIDTH 15.5 % (11.0-15.5); WHITE BLOOD COUNT (AUTO) 4.9 K/uL (4.8-10.8)
[2025-02-01 04:23] LABS: CREATININE 0.9 mg/dL (0.5-1.3); GLOMERULAR FILTR. RATE CALC 100.0 mL/min (>90); GLUCOSE,RANDOM 88.0 mg/dL (70-105); SODIUM SERUM 144.0 mmol/L (136-145); UREA NITROGEN, BLOOD 6.0 mg/dL (7-18)
[2025-02-01] MEDS: PoTASSium chloRIDE 20MEQ ER 20 MEQ ERTAB PO PRN (05:27)
[2025-02-01 08:00] VITALS: O2SAT 98
[2025-02-01 08:22] VITALS: BP 143/82; PULSE 56; RESP 18; TEMP 98.1
[2025-02-01 11:25] VITALS: BP 112/88; PULSE 57; RESP 18; TEMP 98.1
[2025-02-01 15:58] VITALS: BP 137/91; PULSE 49; RESP 18; TEMP 98.8
--- NOTE | 2025-02-01 17:55 | PN ---
GENERAL SURGERY PROGRESS NOTE Date/Time Patient Seen: [ January] Problem List: [Partial bowel obstruction ] Interval History: [Patient denies any pain. Admits to having multiple bowel movements.. ] Current Medications Medications (Trade) Dose Ordered Sig/Kenneth Route Start Time Stop Time Status Last Admin Dose Admin Dicyclomine HCl (Bentyl 20mg Tab) 20 mg QID PO 01/28/25 09:00 01/28/25 09:23 DC Docusate Sodium (COLace 100MG CAP) 100 mg BID PO 01/28/25 09:00 01/28/25 09:22 DC Enoxaparin Sodium (Lovenox) 30 mg DAILY SQ 01/29/25 09:00 02/28/25 08:59 02/01/25 09:30 30 MG Famotidine (Pepcid 20mg Vial) 20 mg BID IV 01/27/25 21:00 01/28/25 06:32 DC 01/27/25 20:47 20 MG Ferrous Sulfate (Ferrous Sulfate) 325 mg DAILY PO 01/28/25 09:00 01/28/25 09:21 DC Gabapentin (NEURontin 100 mg CAP) 100 mg TID PO 01/28/25 09:00 01/28/25 09:21 DC Pantoprazole Sodium (PROTonix 40MG TAB) 40 mg DAILY PO 01/28/25 09:00 01/28/25 09:21 DC Piperacillin Sod/ Tazobactam Sod (Zosyn 3.375gm+NS 50ml) 3.375 gm ONCE IVPB 01/27/25 16:30 01/27/25 22:30 DC 01/27/25 16:41 3.375 GM Piperacillin Sod/ Tazobactam Sod (Zosyn 3.375gm+NS 50ml) 3.375 gm ZOSY8 IVPB 01/28/25 05:00 02/07/25 04:59 02/01/25 13:38 3.375 GM Sodium Chloride 1,000 ml @ 125 mls/hr Q8H IV 01/27/25 16:00 02/26/25 15:59 02/01/25 09:29 125 MLS/HR Sodium Chloride (NS 50ml) 50 ml AD IV 01/27/25 16:00 01/28/25 06:31 DC Physical Examination: Awake, alert, oriented x3 Unlabored Regular rate and rhythm Abdomen soft, nontender, nondistended Vital Signs (last 8hr) Date Time Temp Pulse Resp B/P (MAP) Pulse Ox O2 Delivery O2 Flow Rate FiO2 02/01/25 15:58 98.8 49 18 137/91 99 Room Air 02/01/25 11:25 98.1 57 18 112/88 95 Room Air Laboratory: [ ] Hematology Labs: Test 02/01/25 03:56 Range/Units White Blood Count 4.9 4.8-10.8 K/uL Red Blood Count 4.48 L 4.50-6.20 MIL/uL Hemoglobin 12.7 L 14.0-18.0 g/dL Hematocrit 37.6 L 42-54 % Mean Corpuscular Volume 83.9 79-99 fL Mean Corpuscular Hemoglobin 28.3 27.0-33.0 pg Mean Corpuscular Hemoglobin Concent 33.8 32.0-36.0 g/dL Red Cell Distribution Width 15.5 11.0-15.5 % Platelet Count 237 130-400 K/uL Mean Platelet Volume 9.3 7.5-10.5 fL Nucleated Red Blood Cells 0.0 0.0-0.19 % Chemistry Labs: Test 02/01/25 03:56 01/31/25 05:31 Range/Units Sodium Level 144 136-145 mmol/L Potassium Level 3.5 3.5-5.1 mmol/L Chloride Level 107 101-111 mmol/L Carbon Dioxide Level 32 21-32 mmol/L Blood Urea Nitrogen 6 L 7-18 mg/dL Creatinine 0.9 0.5-1.3 mg/dL Glomerular Filtration Rate Calc 100 >90 mL/min Random Glucose 88 70-105 mg/dL Total Calcium 9.7 8.5-10.1 mg/dL Magnesium Level 2.10 1.80-2.40 mg/dL Total Bilirubin 0.4 0.2-1.0 mg/dL Aspartate Amino Transf (AST/SGOT) 14 10-37 U/L Alanine Aminotransferase (ALT/SGPT) 16 12-78 U/L Alkaline Phosphatase 67 50-136 U/L Total Protein 4.9 L 6.0-8.3 g/dL Albumin 2.2 L 3.5-5.0 g/dL Diagnostics / Radiology: [Copy/Paste Echos/Imaging Report here] Impression and Plan: [Patient responded to conservative management. Patient can be discharged home. Recommend patient is starting full liquid diet at home and slowly advancing. Had long talk with the patient regarding his dietary advancement plan as well as his bowel regimen. Patient indicates he understands. I will be available if needed. Once the discharge patient can follow up with me in clinic in about 2-3 weeks.] STANLEY ALLISON MD Feb 01, 2025 17:55
--- NOTE | 2025-02-01 18:15 | NUR ---
removed iv cath intact dressing to site dc instructions given signed verball understanding full liq diet and fu w/pdp and surgeon dc hm from unit via [facility] escorted [facility] staff to private car stable condition
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
== END 2025-02-01 18:33 | disposition home or self-care (01) | DRG 389 ==
LOC: EDH 12:07 → EDHIP 15:51 → 3DH 01-28 03:03
PROVIDERS: ADMIT Internal Medicine; ATTEND Internal Medicine
PROC: 0D9670Z Drainage of Stomach with Drainage Device, Via Natural or Artificial Opening (ICD-10-PCS; principal; 2025-01-27)
DX: K56.600 Partial intestinal obstruction, unspecified as to cause (principal); N30.00 Acute cystitis without hematuria; E86.0 Dehydration; E86.1 Hypovolemia; R00.1 Bradycardia, unspecified; Z20.822 Contact with and (suspected) exposure to COVID-19; E83.52 Hypercalcemia; D64.9 Anemia, unspecified; F17.210 Nicotine dependence, cigarettes, uncomplicated; Z79.899 Other long term (current) drug therapy
CPT/HCPCS: 36415; 74018; 74176; 74177; 80048; 80053; 81001; 82948; 83036; 83605; 83690; 83735; 84132; 84145; 84443; 85025; 85027; 86140; 87086; 87635; 93005; 96374; 96375; 99285; G0378; J1650; J2270; J2405; J2543; J3475; J3480; J3490; J7030; Q9967

== ENCOUNTER 2025-04-01 19:15 | Inpatient (IN) | payer BC ==
[~2025-04-01] VITALS: Ht 167.6 cm; Wt 49.6 kg
[~2025-04-01 19:15] MED LIST changes: -MELA1TAB52 PO; -METH-662 PO; -TRAM100T34 PO
[2025-04-01 20:24] LABS: IMMATURE GRANULOCYTE ABSOLUTE 0.06 K/uL (0-1); NUCLEATED RED BLOOD CELLS 0.0 % (0.0-0.19); PLATELET COUNT (AUTO) 274 K/uL (130-400); RED BLOOD CELL COUNT(AUTO) 5.07 MIL/uL (4.50-6.20); RED CELL DISTRIBUTION WIDTH 13.6 % (11.0-15.5); WHITE BLOOD COUNT (AUTO) 5.5 K/uL (4.8-10.8)
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
[2025-04-01 20:36] LABS: CREATININE 0.8 mg/dL (0.5-1.3); GLOMERULAR FILTR. RATE CALC 104.0 mL/min (>90); GLUCOSE,RANDOM 97.0 mg/dL (70-105); SODIUM SERUM 137.0 mmol/L (136-145); UREA NITROGEN, BLOOD 52.0 mg/dL (7-18)
[2025-04-01 20:41] LABS: CREATINE KINASE, TOTAL 48.0 U/L (21-232)
[2025-04-01] MEDS: 0.9%NACL 1000ML 1,000 ML IV ONE (20:56)
[2025-04-01] MEDS ORDERED: IOHEXOL-350 75 ML VIAL IV ONE (21:59)
[2025-04-01 22:45] LABS: APPEARANCE,URINE CLEAR (CLEAR); GLUCOSE, URINE (UA) NEGATIVE (NEGATIVE); LEUKOCYTE ESTERASE ,URINE 75 Leu/uL (NEGATIVE); NITRATE,URINE NEGATIVE (NEGATIVE); OCCULT BLOOD,URINE +- (TRACE) (NEGATIVE)
[2025-04-01 22:46] LABS: ADD UA MICROSCOPIC YES
[2025-04-01 22:48] LABS: SQUAMOUS EPITHELIAL CELL,UR RARE /HPF (0-2)
--- NOTE | 2025-04-01 23:11 | HMCIMG ---
EXAM: CT ABDOMEN AND PELVIS WITH IV CONTRAST. TECHNIQUE: MDCT sections of the abdomen and pelvis were obtained after intravenous contrast administration. No immediate post-contrast reaction. CLINICAL INDICATIONS: Patient presents with diffuse abdominal pain and nausea with vomiting. PRIOR IMAGIN01/27/2025. FINDINGS: LUNG BASES: Mild interval increase in the left pleural effusion with adjacent dependent atelectasis. LIVER: Normal in size and enhancement pattern. No focal lesion. GALLBLADDER AND BILE DUCTS: Gallbladder within normal limits. No biliary dilatation. PANCREAS: Normal in size and contour. No peripancreatic inflammation. SPLEEN: Normal. Minimal loculated fluid adjacent to the spleen. ADRENAL GLANDS: Normal. KIDNEYS, URETERS, AND BLADDER: Normal renal cortical enhancement. No hydronephrosis, hydroureter, or calculus. The urinary bladder is normal in wall thickness and distention. STOMACH AND BOWEL: Moderate fluid-filled distended jejunal loops with proximal and mid jejunal loops withan abrupt transition point in the pelvis at the level of the aortic bifurcation. Subtle inflammatory wall thickening of the distal jejunal loop. Ileal loops are collapsed. Imaging features are consistent with small bowel obstruction. Diffuse concentric wall thickening in the rectosigmoid junction for approximately 7-8 cm in length and 12 mm in thickness with loss of mural stratification. The possibility of neoplastic thickening is not excluded. APPENDIX: Normal. PERITONEUM: Gross ascites throughout the abdomen and pelvis. No loculated collection or free intraperitoneal air. LYMPH NODES: No significant abdominal or pelvic lymphadenopathy. REPRODUCTIVE ORGANS: Hyperdense foci in the right scrotal wall, likely postinflammatory in nature. VASCULATURE: Mild atheromatous wall calcifications of the abdominal aorta and iliac arteries. No aneurysmal dilatation. BONES: Multilevel mild spondylosis. No acute osseous abnormality. OTHER FINDINGS: Diffuse anasarca, showing interval increase. IMPRESSION: Diffuse concentric wall thickening in the rectosigmoid junction for approximately 7-8 cm in length and 12 mm in thickness with loss of mural stratification. The possibility of neoplastic thickening is not excluded. Suggest colonoscopy correlation. Moderate fluid-filled distended jejunal loops with proximal and mid jejunal loops with an abrupt transition point in the pelvis at the level of the aortic bifurcation. Subtle inflammatory wall thickening of the distal jejunal loop. Ileal loops are collapsed. Imaging features are consistent with small bowel obstruction. Mild interval increase in the left pleural effusion with adjacent dependent atelectasis. Redemonstrated is thickening in the rectosigmoid junction. Diffuse anasarca with interval worsening. Hyperdense foci in the right scrotal wall, likely postinflammatory. /[place]et
--- NOTE | 2025-04-01 23:27 | HMCIMG ---
EXAM: CR Chest, 1 View. CLINICAL HISTORY: Chest pain. COMPARISON: 10/29/24. FINDINGS: LUNGS: There is no mass, infiltrate, or acute pulmonary abnormality. PLEURAL SPACES: No pneumothorax. Mild to moderate left pleural effusion. Blunting of the right costophrenic angle concerning mild right pleural effusion. MEDIASTINUM: The cardiomediastinal silhouette is within normal limits. BONES: No acute osseous abnormality. IMPRESSION: Mild to moderate left pleural effusion. Blunting of the right costophrenic angle concerning mild right pleural effusion. These are new findings. /[place]
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
--- NOTE | 2025-04-02 01:03 | NUR ---
REPORT GIVEN TO NURSE KOO
--- NOTE | 2025-04-02 01:43 | NUR ---
PATIENT VERBALIZES HE DOES NOT TAKE ANY PRESCRIBED MEDICATIONS
--- NOTE | 2025-04-02 02:26 | HMCIMG ---
EXAM: CR Abdomen, 1 view CLINICAL HISTORY: NGT verification. COMPARISON: CT abdomen and pelvis dated 04/01/2025. FINDINGS: The gastric tube tip overlies the stomach. Mildly dilated small bowel loops, measuring up to 4 cm in diameter, concerning ileus or obstruction. No free air is evident. No abnormal calcification. No aggressive appearing osseous lesion. IMPRESSION: The gastric tube tip overlies the stomach. Mildly dilated small bowel loops, measuring up to 4 cm in diameter, concerning ileus or obstruction. No gross changes within the limits of cross-modality comparison. /Giuliana
[2025-04-02] MEDS ORDERED: LACTULOSE 20 GM/30 ML UDCUP PO PRN (02:30)
[2025-04-02] MEDS: LACTATED RINGERS 1000ML 1,000 ML IV SCH (02:31)
--- NOTE | 2025-04-02 05:55 | EKG ---
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
--- NOTE | 2025-04-02 07:52 | HMCIMG ---
EXAM: US Chest Limited, Evaluate for Pleural Effusion. CLINICAL HISTORY: pleural effusion TECHNIQUE: Real-time ultrasound of the chest to evaluate for pleural effusion. COMPARISON: CT abdomen and pelvis dated 04/02/2025. FINDINGS: PLEURAL SPACES: Left sided pleural effusion with underlying collapse of the right lower lobe of lung. IMPRESSION: Left sided pleural effusion with underlying collapse of the right lower lobe of lung. /Giuliana
[2025-04-02] MEDS: FAMOTIDINE 20MG VIAL IV SCH (07:57)
[2025-04-02 08:02] LABS: IMMATURE GRANULOCYTE ABSOLUTE 0.10 K/uL (0-1); NUCLEATED RED BLOOD CELLS 0.0 % (0.0-0.19); PLATELET COUNT (AUTO) 237 K/uL (130-400); RED BLOOD CELL COUNT(AUTO) 5.10 MIL/uL (4.50-6.20); RED CELL DISTRIBUTION WIDTH 13.7 % (11.0-15.5); WHITE BLOOD COUNT (AUTO) 5.2 K/uL (4.8-10.8)
[2025-04-02 08:13] LABS: CREATININE 0.7 mg/dL (0.5-1.3); GLOMERULAR FILTR. RATE CALC 108.0 mL/min (>90); GLUCOSE,RANDOM 77.0 mg/dL (70-105); PHOSPHORUS 3.7 mg/dL (2.5-4.9); SODIUM SERUM 137.0 mmol/L (136-145); UREA NITROGEN, BLOOD 48.0 mg/dL (7-18)
--- NOTE | 2025-04-02 10:44 | NUR ---
SURGICAL ORDER WAS SENT TO MACHINE STRIPER.
[2025-04-02 11:30] VITALS: BP 143/93; PULSE 62; RESP 19; TEMP 97.1
[2025-04-02 11:41] VITALS: O2SAT 94
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
--- NOTE | 2025-04-02 14:38 | NUR ---
CT ABDOMEN / PELVIS WITH IV CONTRAST DONE 04/01/2025 @ 22:08HRS. EXAM WAS REORDERED FOR TODAY. NURSE WAS NOTIFIED CT EXAM HAD ALREADY BEEN DONE.
[2025-04-02 16:00] VITALS: BP 148/99; PULSE 65; RESP 20; TEMP 97.3
--- NOTE | 2025-04-02 17:04 | NUR ---
DCP: INITIAL ASSESSMENT Patient lives with Olivia Vasquez, ex-spouse. She has no home services or DME. Patient states she needs help with ADLs and does not drive. His ex-spouse assists as needed. PCP is Dr. Ron Sams. Pharmacy is [facility] in [place]. Patient voiced no safety concerns regarding returning home and states he has no difficulty with housing or buying food. DCP is home. Patient had many questions regarding benefits and disability. Patient referred to Sheila Huff, for additional information. Addendum: 04/02/25 at 1713 by JULIANA TRAYLOR Amended: Links added.
[2025-04-02 18:15] LABS: AMPHET/METH SCREEN,URINE NEGATIVE (NEGATIVE); BARBITURATE SCREEN, URINE NEGATIVE (NEGATIVE); CANNABINOID SCREEN,URINE NEGATIVE (NEGATIVE); COCAINE SCREEN,URINE NEGATIVE (NEGATIVE)
[2025-04-02 20:00] VITALS: BP 137/100; PULSE 59; RESP 18; TEMP 97.4
[2025-04-03] VITALS (19 sets, daily range): BP systolic 101–164; BP diastolic 60–104; PULSE 52–76; RESP 14–20; TEMP 96.9–97.9; O2SAT 99
[2025-04-03 05:27] LABS: NUCLEATED RED BLOOD CELLS 0.0 % (0.0-0.19); PLATELET COUNT (AUTO) 227.0 K/uL (130-400); RED BLOOD CELL COUNT(AUTO) 5.07 MIL/uL (4.50-6.20); RED CELL DISTRIBUTION WIDTH 13.8 % (11.0-15.5); WHITE BLOOD COUNT (AUTO) 5.5 K/uL (4.8-10.8)
[2025-04-03 05:48] LABS: ASPARTATE AMINOTRANSFERASE 24.0 U/L (10-37); CREATININE 0.7 mg/dL (0.5-1.3); GLOMERULAR FILTR. RATE CALC 108.0 mL/min (>90); GLUCOSE,RANDOM 81.0 mg/dL (70-105); SODIUM SERUM 137.0 mmol/L (136-145); TOTAL PROTEIN, SERUM 5.4 g/dL (6.0-8.3); UREA NITROGEN, BLOOD 50.0 mg/dL (7-18)
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
[2025-04-03] MEDS ORDERED: COMPOUND IV REFRIGERATED 1 EACH IVSOLN MISC PRN (12:00)
[2025-04-03] MEDS: M.V.I. IV [ADULT] 10 ML, FOLic ACID 5 MG/ML VIAL 1 MG, THIAMINE HCL 100 MG in 0.9%NACL ... IV SCH (13:02)
[2025-04-03 13:10] LABS: INR 1.14 (0.85-1.15)
--- NOTE | 2025-04-03 14:05 | PN ---
[facility] PROGRESS NOTE Date Patient Seen: Apr 03, 2025 Time of Visit: 13:58 Supervising Physician: Dr. Waggoner Primary Care Physician: [ ] Outpatient Specialists: [ ] Inpatient Consults: [ ] PROBLEM LIST: Severe abdominal pain Asthma Chronic obstructive pulmonary disease CAD History of stroke Diabetes mellitus Hypertension INTERVAL HISTORY: Patient shows sign of elevated BP on morning vital checks. He has ESRD and r emains short of breath on exertion. Patient with a small pleural effusion however this time he is asymptomatic and on room air, we will continue to do watchful waiting and conservative management. Patient continues on Rocephin at this time. Surgery was consulted for possible SBO, patient to remain on TPN for the time being. Upon evaluation of the CT scan with my attending patient's pleural effusion is too small for thoracentesis. Lung does not appear to be collapsed on radiographic evidence. At this time pulmonary Services will sign off the case of the patient shows no signs of acute respiratory distress. Thank you for allowing us to participate in the care of this patient, please re- consult should her services be required again. Plan Surgery recommendations for patient to initiate on TPN and remain NPO Pending possible loop colostomy on this admission No thoracentesis indicated for the bilateral pleural effusion Continue with antibiotics for UTI. REVIEW OF SYSTEMS: 12 point ROS reviewed with patient. Pertinent positives mentioned above. Otherwise negative. PHYSICAL EXAM: GENERAL: alert, weak, awake oriented x 3 HEENT: EOMI, Sclera non icteric, moist mucosa NECK: Supple, no JVD, trachea midline LUNGS: Clear breath sounds bilaterally. No wheezes HEART: Regular rate and rhythm. Normal S1 and S2, without murmurs ABD: Abdomen soft, nontender. Bowel sounds present EXT: No clubbing cyanosis or edema NEURO: Alert and oriented to person, follows commands Vital Signs (last 8hr) Date Time Temp Pulse Resp B/P (MAP) Pulse Ox O2 Delivery O2 Flow Rate FiO2 04/03/25 11:56 97.0 62 15 116/78 97 Room Air 04/03/25 11:51 64 15 108/79 95 Room Air 04/03/25 11:46 65 15 108/77 99 Room Air 04/03/25 11:41 60 15 111/79 100 Room Air 04/03/25 11:36 59 14 110/72 100 Nonrebreathing Mask 10.0 04/03/25 11:31 61 15 106/60 100 Nonrebreathing Mask 10.0 04/03/25 11:26 97.0 60 15 101/64 100 Nonrebreathing Mask 10.0 04/03/25 11:10 Mask 10.0 04/03/25 11:10 Mask 04/03/25 08:00 66 18 122/92 99 Room Air LABS: Hematology Labs: Test 04/03/25 05:13 04/02/25 07:44 04/01/25 19:59 Range/Units White Blood Count 5.5 4.8-10.8 K/uL Red Blood Count 5.07 4.50-6.20 MIL/uL Hemoglobin 14.9 14.0-18.0 g/dL Hematocrit 41.3 L 42-54 % Mean Corpuscular Volume 81.5 79-99 fL Mean Corpuscular Hemoglobin 29.4 27.0-33.0 pg Mean Corpuscular Hemoglobin Concent 36.1 H 32.0-36.0 g/dL Red Cell Distribution Width 13.8 11.0-15.5 % Platelet Count 227 130-400 K/uL Mean Platelet Volume 8.8 7.5-10.5 fL Nucleated Red Blood Cells 0.0 0.0-0.19 % Immature Granulocyte % (Auto) 1.9 H 0-1 % Neutrophils (%) (Auto) 73.8 40.0-77.0 % Lymphocytes (%) (Auto) 15.7 L 21.0-51.0 % Monocytes (%) (Auto) 8.4 3.0-13.0 % Eosinophils (%) (Auto) 0.0 0.0-8.0 % Basophils (%) (Auto) 0.2 0.0-5.0 % Neutrophils # (Auto) 3.9 1.8-7.7 K/uL Lymphocytes # (Auto) 0.8 L 1.0-4.8 K/uL Monocytes # (Auto) 0.4 0.1-1.0 K/uL Eosinophils # (Auto) 0.00 0.00-0.70 K/uL Basophils # (Auto) 0.01 0.00-0.20 K/uL Absolute Immature Granulocyte (auto 0.10 0-1 K/uL Red Blood Cell Morphology See comments Chemistry Labs: Test 04/03/25 05:13 04/02/25 07:44 10/24/25 19:59 Range/Units Sodium Level 137 136-145 mmol/L Potassium Level 4.7 3.5-5.1 mmol/L Chloride Level 101 101-111 mmol/L Carbon Dioxide Level 31 21-32 mmol/L Blood Urea Nitrogen 50 H 7-18 mg/dL Creatinine 0.7 0.5-1.3 mg/dL Glomerular Filtration Rate Calc 108 >90 mL/min Random Glucose 81 70-105 mg/dL Total Calcium 9.1 8.5-10.1 mg/dL Total Bilirubin 0.6 0.2-1.0 mg/dL Aspartate Amino Transf (AST/SGOT) 24 10-37 U/L Alanine Aminotransferase (ALT/SGPT) 25 12-78 U/L Alkaline Phosphatase 71 50-136 U/L Total Protein 5.4 L 6.0-8.3 g/dL Albumin 2.4 L 3.5-5.0 g/dL Phosphorus Level 3.7 2.5-4.9 mg/dL Magnesium Level 2.30 1.80-2.40 mg/dL Total Creatine Kinase 48 21-232 U/L Troponin I High Sensitivity 5 4-75 ng/L Lipase 31 16-77 U/L Coagulation Labs: Test 04/03/25 12:52 Range/Units Prothrombin Time 11.9 H 9.6-11.6 SEC Prothromb Time International Ratio 1.14 0.85-1.15 Activated Partial Thromboplast Time 36.3 H 26.3-35.5 SEC DIAGNOSTICS / RADIOLOGY RESULTS: [ ] PLAN NEURO: Minimize central acting medications as possible. Maintain fall precautions, adequate lighting during the day PULMONARY: Supplemental 02 as needed. Maintain aspiration precautions at all times CARDIOVASCULAR: Follow hemodynamics. Vital signs per facility protocol GI & NUTRITION: Continue with nutritional support. Continue stool softeners and laxatives as needed. KIDNEYS & ELECTROLYTES: Strict monitoring of intake, output and overall fluid balance. Avoid nephrotoxic medications to the extent possible. Medications to be dosed according to renal function. Monitor electrolytes and replace as needed ENDOCRINE: Maintain blood glucose between 100-180 at all times. Hypoglycemia protocol in place INFECTIOUS DISEASE: Trend temperature, WBC and procalcitonin level Follow cultures, deescalate antibiotics as soon as possible. Panculture if new onset fever ONCOLOGY/HEMATOLOGY/COAGULATION: Monitor for s/s of bleeding Monitor hemoglobin, coagulation studies as needed SKIN: Pressure ulcer prevention per facility protocol Specialty mattress ORTHO/REHAB: Continue PT/OT Prophylaxis: Continue GI and DVT prophylaxis Code Status: Full Resuscitation Disposition: TBD Other: Total patient care time exceeds 35 minutes excluding all procedures. REA LEE PAC Apr 03, 2025 14:05
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
--- NOTE | 2025-04-03 16:44 | HMCIMG ---
EXAM: CR Chest, 2 View. CLINICAL HISTORY: PICC line placement COMPARISON: None provided. FINDINGS: Enteric tube is seen as far as the stomach, tip excluded from the [id number]. Right PICC terminates at the distal SVC. LUNGS: There is no mass, infiltrate, or acute pulmonary abnormality. PLEURAL SPACES: Small left pleural effusion. No pneumothorax. Skinfolds are seen bilaterally. MEDIASTINUM: The cardiomediastinal silhouette is within normal limits. BONES: No acute osseous abnormality. IMPRESSION: 1. Right PICC line terminates at the distal SVC. 2. Small left pleural effusion. /[place]
--- NOTE | 2025-04-03 18:10 | NUR ---
EX CALLED TO REQUEST INFORMATION REGARDING PATIENT. PATIENT REQUESTS THAT INFORMATION NOT BE SHARED WITH ANYONE AT THIS TIME.
[2025-04-04] VITALS (8 sets, daily range): BP systolic 122–136; BP diastolic 85–93; PULSE 65–77; RESP 15–20; TEMP 96.9–97.7; O2SAT 92
[2025-04-04 06:54] LABS: IMMATURE GRANULOCYTE ABSOLUTE 0.37 K/uL (0-1); NUCLEATED RED BLOOD CELLS 0.0 % (0.0-0.19); PLATELET COUNT (AUTO) 217 K/uL (130-400); RED BLOOD CELL COUNT(AUTO) 5.48 MIL/uL (4.50-6.20); RED CELL DISTRIBUTION WIDTH 13.7 % (11.0-15.5); WHITE BLOOD COUNT (AUTO) 7.7 K/uL (4.8-10.8)
[2025-04-04 07:04] LABS: CREATININE 0.6 mg/dL (0.5-1.3); GLOMERULAR FILTR. RATE CALC 113.0 mL/min (>90); GLUCOSE,RANDOM 60.0 mg/dL (70-105); SODIUM SERUM 137.0 mmol/L (136-145); UREA NITROGEN, BLOOD 45.0 mg/dL (7-18)
--- NOTE | 2025-04-04 11:43 | PN ---
GENERAL SURGERY PROGRESS NOTE Date/Time Patient Seen: [04/04/2025 ] Problem List: [Partial bowel obstruction with colonic mass ] Interval History: [Patient was evaluated at bedside this morning. No acute overnight events were reported by the patient's nurse. Patient states that the abdominal pain has remained unchanged. Patient is passing flatus. Pending bowel movement. Per report, NG tube output overnight was 50 cc of bilious fluid. Patient underwent a flexible sigmoidoscopy yesterday which demonstrated diverticulosis in the proximal rectum, congested mucosa in the recto-sigmoid colon, stool in the rectum, tight angulation at rectosigmoid junction with edematous mucosa, and no obvious tumor. ] Current Medications Medications (Trade) Dose Ordered Sig/Kenneth Route Start Time Stop Time Status Last Admin Dose Admin Ceftriaxone Sodium (ROCEphine 1G INJ) 1 gm Q24H IVPB 04/02/25 02:30 04/12/25 02:29 04/04/25 02:18 1 GM Famotidine (Pepcid 20mg Vial) 20 mg DAILY IV 04/02/25 09:00 04/02/25 10:06 DC 04/02/25 07:57 20 MG Furosemide (LASix 40MG VIAL) 40 mg DAILY IV 04/03/25 09:00 04/02/25 10:06 DC Lactated Ringer's 1,000 ml @ 75 mls/hr [id number] IV 04/02/25 02:30 04/04/25 09:18 DC 04/03/25 04:47 75 MLS/HR Multivitamins/ Minerals 10 ml/ Folic Acid 1 mg/ Thiamine HCl 100 mg/Sodium Chloride 1,010 ml @ 75 mls/hr DAILY IV 04/03/25 11:30 04/05/25 22:27 04/03/25 13:02 75 MLS/HR Pantoprazole Sodium (PROTonix 40MG INJ) 40 mg DAILY IVP 04/03/25 09:00 05/03/25 08:59 04/04/25 10:37 40 MG Physical Examination: Awake, alert, oriented x3 Regular rate and rhythm Unlabored breathing _Abd soft, mild tenderness, non distended Vital Signs (last 8hr) Date Time Temp Pulse Resp B/P (MAP) Pulse Ox O2 Delivery O2 Flow Rate FiO2 04/04/25 08:00 97.2 72 15 123/92 92 Room Air 04/04/25 04:00 97.3 65 20 125/85 100 Room Air Laboratory: [ ] Hematology Labs: Test 04/04/25 06:40 Range/Units White Blood Count 7.7 4.8-10.8 K/uL Red Blood Count 5.48 4.50-6.20 MIL/uL Hemoglobin 16.2 14.0-18.0 g/dL Hematocrit 46.0 42-54 % Mean Corpuscular Volume 83.9 79-99 fL Mean Corpuscular Hemoglobin 29.6 27.0-33.0 pg Mean Corpuscular Hemoglobin Concent 35.2 32.0-36.0 g/dL Red Cell Distribution Width 13.7 11.0-15.5 % Platelet Count 217 130-400 K/uL Mean Platelet Volume 9.1 7.5-10.5 fL Immature Granulocyte % (Auto) 4.8 H 0-1 % Neutrophils (%) (Auto) 72.5 40.0-77.0 % Lymphocytes (%) (Auto) 10.8 L 21.0-51.0 % Monocytes (%) (Auto) 6.1 3.0-13.0 % Eosinophils (%) (Auto) 5.3 0.0-8.0 % Basophils (%) (Auto) 0.5 0.0-5.0 % Neutrophils # (Auto) 5.6 1.8-7.7 K/uL Lymphocytes # (Auto) 0.8 L 1.0-4.8 K/uL Monocytes # (Auto) 0.5 0.1-1.0 K/uL Eosinophils # (Auto) 0.41 0.00-0.70 K/uL Basophils # (Auto) 0.04 0.00-0.20 K/uL Absolute Immature Granulocyte (auto 0.37 0-1 K/uL Nucleated Red Blood Cells 0.0 0.0-0.19 % Chemistry Labs: Test 04/04/25 06:40 04/03/25 05:13 Range/Units Sodium Level 137 136-145 mmol/L Potassium Level 4.1 3.5-5.1 mmol/L Chloride Level 101 101-111 mmol/L Carbon Dioxide Level 29 21-32 mmol/L Blood Urea Nitrogen 45 H 7-18 mg/dL Creatinine 0.6 0.5-1.3 mg/dL Glomerular Filtration Rate Calc 113 >90 mL/min Random Glucose 60 L 70-105 mg/dL Total Calcium 9.0 8.5-10.1 mg/dL Magnesium Level 2.30 1.80-2.40 mg/dL Total Bilirubin 0.6 0.2-1.0 mg/dL Aspartate Amino Transf (AST/SGOT) 24 10-37 U/L Alanine Aminotransferase (ALT/SGPT) 25 12-78 U/L Alkaline Phosphatase 71 50-136 U/L Total Protein 5.4 L 6.0-8.3 g/dL Albumin 2.4 L 3.5-5.0 g/dL Coagulation Labs: Test 04/03/25 12:52 Range/Units Prothrombin Time 11.9 H 9.6-11.6 SEC Prothromb Time International Ratio 1.14 0.85-1.15 Activated Partial Thromboplast Time 36.3 H 26.3-35.5 SEC Diagnostics / Radiology: [Copy/Paste Echos/Imaging Report here] Impression and Plan: [Patient with a partial bowel obstruction responding well to conservative management. Plan is to do an NG tube clamp trial today. Patient is to continue NPO and IVF in the meantime. Ambulate. Pulmonary toilet. Will continue to monitor the patient.] Above patient's assessment and plan has been discussed with my attending physician, Dr. Mcgrath. Patient has a flexible sigmoidoscopy yesterday. No masses detected. There was an angulation in his colon otherwise there no obstruction. Patient has started to have some flatus. Patient has a PICC line placed and he has a were going to back. Patient indicates he has pain that better. Abdomen is soft. This point in time no surgical interventions planned. We will continue his TPN. We will place the patient on the NG tube clamp trial monitor his bowel function. If patient has bowel function then we will plan on doing a CT with oral contrast. Hopefully patient's condition can be resolve with conservative measures. I personally discussed the case with my PA and agree with my PA note above. JALYN NEVES Apr 04, 2025 11:43 STANLEY MCGRATH MD Apr 04, 2025 17:58
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
[2025-04-04] MEDS ORDERED: COMPOUND IV MISC 1 EACH IVSOLN MISC PRN (13:00)
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
--- NOTE | 2025-04-04 15:33 | NUR ---
CM NOTE/MARILIA MORIN received call from CM DC maintenance planner from [facility] named Nazario [phone]. States this is her direct number and is available to assist with dc planning once patient is medically ready. Addendum: 04/04/25 at 1534 by LORNE SMALL CM Amended: Links added.
--- NOTE | 2025-04-04 15:38 | NUR ---
APS SW attempted to make contact with APS worker at [phone] (Ameena Lynch) however there was no answer. Staff did leave a detailed voicemail with a request for a call back.
--- NOTE | 2025-04-04 16:17 | NUR ---
Nutritional Note: Chart, meds, and labs Reviewed. PICC line was placed and patient was started on banana bag with thiamine, folic acid, and multivitamin supplementation. After supplementation with the banana bag to be started on TPN and possible diverting loop colostomy later in the week as per Dr. Mcgrath. Pt with a 17% wt loss in 2 months. LBW 60kg 01/27/25. Recommend: -Continue CLinimix 5/15% via central line at a rate of 80ml/hr, Include 10ml adult MVI and 3ml trace elements. TPN Provides 288gm dextrose, 96gm protein 1363kcal/day GIR 4.1 -Lipid emulsion x 3 weekly to prevent essential fatty acid deficiency. Hold if triglycerides >400 or active sepsis not controlled. -Check Lipid Panel weekly on Mondays -Check HA1C to obtain the three-month average of blood sugar. -Check folate, iron, vit b12, and Vit D levels to rule out deficiencies. Per research low vitamin D may contribute to insulin resistance - Electrolyte replacements per protocol -Monitor feeding tolerance, wt, and labs -If No BM >3days consider bowel stimulant. -Schedule outpatient RD f/u for long-term nutrition care. - Notify RD if additional nutrition concerns arise. SEE RD Nutritional Assessment for additional assessment information. Addendum: 04/04/25 at [address] Amended: Links added.
[2025-04-04] MEDS: CLINIMIX E IV ONE (18:20)
[2025-04-04] MEDS: MULTITRACE IV ONE (18:20)
[2025-04-04] MEDS: [UNRECOGNIZED DRUG - OTHER] IV ONE (18:20)
--- NOTE | 2025-04-04 18:20 | NUR ---
NUTRITION CLINIMIX STARTED AT 1820. RUNNING AT A RATE OF 80ML/HR. PATIENT TOLERATING WELL.
[2025-04-05 04:00] VITALS: BP 115/75; PULSE 63; RESP 17; TEMP 97.4
[2025-04-05 05:19] LABS: NUCLEATED RED BLOOD CELLS 0.0 % (0.0-0.19); PLATELET COUNT (AUTO) 167.0 K/uL (130-400); RED BLOOD CELL COUNT(AUTO) 4.28 MIL/uL (4.50-6.20); RED CELL DISTRIBUTION WIDTH 13.7 % (11.0-15.5); WHITE BLOOD COUNT (AUTO) 7.7 K/uL (4.8-10.8)
[2025-04-05 05:29] LABS: CREATININE 0.6 mg/dL (0.5-1.3); GLOMERULAR FILTR. RATE CALC 113.0 mL/min (>90); GLUCOSE,RANDOM 281.0 mg/dL (70-105); SODIUM SERUM 137.0 mmol/L (136-145); UREA NITROGEN, BLOOD 45.0 mg/dL (7-18)
[2025-04-05 08:00] VITALS: BP 151/95; PULSE 74; RESP 20; TEMP 97.4; O2SAT 96
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
[2025-04-05] MEDS: FAT EMULSIONS 20% 250ML 250 ML IV SCH (11:28)
[2025-04-05 12:00] VITALS: BP 125/84; PULSE 81; RESP 20; TEMP 97.6
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
--- NOTE | 2025-04-05 14:33 | NUR ---
PATIENT STATUS PATIENT PULLED OUT SOME OF HIS NG TUBE. CALLED DR. ALLISON FOR FURTHER INSTRUCTION. NO ANSWER MESSAGE LEFT PENDING CALLBACK.
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
--- NOTE | 2025-04-05 15:00 | NUR ---
PHYSICIAN ORDERS S/W DR. ALLISON INFORMED OF NG TUBE NOT IN PLACE. PER MD LEAVE NG TUBE OUT ORDER CT ABDOMEN/PELVIS WITH ORAL CONTRAST GASTROGRAFIN. WILL RE-INSERT NG-TUBE IF NECESSARY. ORDERS PLACED.
[2025-04-05] MEDS ORDERED: DIATR MEGLU/DIATRIZOATE SODIUM 30 ML BOTTLE ONE ×2 (15:01→22:10)
--- NOTE | 2025-04-05 15:25 | NUR ---
PT STATUS UPDATE PT NG TUBE IN ESOPHAGEAL SPHINCTER 2 IN ABOVE STOMACH, PER SERVER SUPPORT TECHNICIAN. GASTROGRAFIN WAS INJECTED TO DISPLAY NG TUBE PLACEMENT. NG TUBE WILL BE REMOVED TODAY.
--- NOTE | 2025-04-05 15:55 | HMCIMG ---
EXAM: CR Chest, 1 View. CLINICAL HISTORY: NG TUBE PLACEMENT WITH GASTROGRAFIN COMPARISON: None provided. FINDINGS: LUNGS: There is no mass, infiltrate, or acute pulmonary abnormality. Only the lung bases were visualized. Mild distention of the large intestine The NG tube is in the proximal stomach PLEURAL SPACES: Small left pleural effusion. MEDIASTINUM: Cardiac size and mediastinal contours within normal limits. BONES: No acute osseous abnormality. IMPRESSION: NG tube is in the proximal stomach. Moderate ileus pattern /[place]
[2025-04-05 16:00] VITALS: BP 117/66; PULSE 86; RESP 20; TEMP 97.7
--- NOTE | 2025-04-05 16:20 | HMCIMG ---
EXAM: CR Abdomen, 1 View. CLINICAL HISTORY: NG TUBE PLCMNT W/GASTRO COMPARISON: None provided. FINDINGS: Contrast is present within the esophagus and a small amount of contrast is present within the gastric lumen. The nasogastric tube tip projects within the distal esophagus and requires advancement. Mildly dilated gas-filled loops of small bowel. IMPRESSION: 1. Nasogastric tube tip in distal esophagus, requiring advancement. Recommend repeat exam following advancement as well as chest xray to rule out aspiration. 2. Mildly dilated gas-filled loops of small bowel. /[place]
--- NOTE | 2025-04-05 16:23 | NUR ---
Nutritional f/u Note: Chart, meds, and labs Reviewed. Met with pt to discuss TPN and nutrition goals. Pt reported normal wt 1year ago 230#s. Pt stated that he wants to get better and gain weight. Pt on clinimix 5/15% @80ML/HR. Abnormal nutrition related labs: CL100, CO2 33, BUN 45, GLU 233, CA 8.4 Wt Status: CURRENT WT 49KG Recommend: -Add thiamine 100mg/ x 5 days. -Lipid emulsion x 3 weekly M, W, F to prevent essential fatty acid deficiency. Hold if triglycerides >400 or active sepsis not controlled. -Check Lipid Panel weekly on Mondays -Check HA1C to obtain the three-month average of blood sugar. -Check folate, iron, vit b12, and Vit D levels to rule out deficiencies. Per research low vitamin D may contribute to insulin resistance - Electrolyte replacements per protocol -RD to provide further recommendations based on clinical progress. -Monitor feeding tolerance, %, wt, and labs -If No BM >3days consider bowel stimulant. - Please notify RD if additional nutrition concerns arise. Addendum: 04/05/25 at [address]30 [address] Amended: Links added.
--- NOTE | 2025-04-05 16:41 | NUR ---
CT ON HOLD, PT PULLED NG TUBE, ASPIRATION RISK IF USED FOR ORAL CONTRAST. NURSE BALDO WILL CALL BACK IF ANY CHANGES.
--- NOTE | 2025-04-05 17:30 | NUR ---
BEDSIDE SWALLOW TEST BEDSIDE SWALLOW TEST PERFORMED. PATIENT GIVEN 120 ML OF H20 NO SIGNS OF ASPIRATION NOTED.
--- NOTE | 2025-04-05 17:42 | PN ---
GENERAL SURGERY PROGRESS NOTE Date/Time Patient Seen: [April 05 2025 ] Problem List: [Partial bowel obstruction] Interval History: [Patient indicates his NG tube fell out today. Patient indicates he is having significant amount of flatus. No bowel movement. No nausea. KUB was done that shows still dilated loops of small bowel. However patient indicates he has having a lot of flatus. ] Current Medications Medications (Trade) Dose Ordered Sig/Kenneth Route Start Time Stop Time Status Last Admin Dose Admin Ceftriaxone Sodium (ROCEphine 1G INJ) 1 gm Q24H IVPB 04/02/25 02:30 04/04/25 14:19 DC 04/04/25 02:18 1 GM Famotidine (Pepcid 20mg Vial) 20 mg DAILY IV 04/02/25 09:00 04/02/25 10:06 DC 04/02/25 07:57 20 MG Fat Emulsion Intravenous 250 ml @ 42 mls/hr DAILY10 IV 04/05/25 10:00 05/05/25 09:59 04/05/25 11:28 42 MLS/HR Furosemide (LASix 40MG VIAL) 40 mg DAILY IV 04/03/25 09:00 04/02/25 10:06 DC Insulin Human Regular (humuLIN R 100 UNIT/ML 3ML) INSULIN SLIDING SCAL... Q6H6 SQ 04/05/25 12:00 05/05/25 11:59 04/05/25 13:18 4 UNIT Lactated Ringer's 1,000 ml @ 75 mls/hr [id number] IV 04/02/25 02:30 04/04/25 09:18 DC 04/03/25 04:47 75 MLS/HR Multivitamins/ Minerals 10 ml/ Folic Acid 1 mg/ Thiamine HCl 100 mg/Sodium Chloride 1,010 ml @ 75 mls/hr DAILY IV 04/03/25 11:30 04/05/25 22:27 04/03/25 13:02 75 MLS/HR Olanzapine (ZyPREXA 5 mg tab) 5 mg HS PO 04/05/25 21:00 05/05/25 20:59 Pantoprazole Sodium (PROTonix 40MG INJ) 40 mg DAILY IVP 04/03/25 09:00 05/03/25 08:59 04/05/25 09:15 40 MG Physical Examination: Awake, alert, oriented x3 Unlabored Regular rate and rhythm Abdomen soft, nontender, nondistended Vital Signs (last 8hr) Date Time Temp Pulse Resp B/P (MAP) Pulse Ox O2 Delivery O2 Flow Rate FiO2 04/05/25 12:00 97.5 81 20 125/84 90 Room Air Laboratory: [ ] Hematology Labs: Test 04/05/25 05:09 04/04/25 06:40 Range/Units White Blood Count 7.7 4.8-10.8 K/uL Red Blood Count 4.28 #L 4.50-6.20 MIL/uL Hemoglobin 12.6 #L 14.0-18.0 g/dL Hematocrit 35.3 #L 42-54 % Mean Corpuscular Volume 82.5 79-99 fL Mean Corpuscular Hemoglobin 29.4 27.0-33.0 pg Mean Corpuscular Hemoglobin Concent 35.7 32.0-36.0 g/dL Red Cell Distribution Width 13.7 11.0-15.5 % Platelet Count 167 130-400 K/uL Mean Platelet Volume 9.1 7.5-10.5 fL Nucleated Red Blood Cells 0.0 0.0-0.19 % Immature Granulocyte % (Auto) 4.8 H 0-1 % Neutrophils (%) (Auto) 72.5 40.0-77.0 % Lymphocytes (%) (Auto) 10.8 L 21.0-51.0 % Monocytes (%) (Auto) 6.1 3.0-13.0 % Eosinophils (%) (Auto) 5.3 0.0-8.0 % Basophils (%) (Auto) 0.5 0.0-5.0 % Neutrophils # (Auto) 5.6 1.8-7.7 K/uL Lymphocytes # (Auto) 0.8 L 1.0-4.8 K/uL Monocytes # (Auto) 0.5 0.1-1.0 K/uL Eosinophils # (Auto) 0.41 0.00-0.70 K/uL Basophils # (Auto) 0.04 0.00-0.20 K/uL Absolute Immature Granulocyte (auto 0.37 0-1 K/uL Chemistry Labs: Test 04/05/25 17:21 04/05/25 05:09 04/04/25 06:40 Range/Units Whole Blood Glucose 155 H 70-110 MG/DL Sodium Level 137 136-145 mmol/L Potassium Level 3.6 3.5-5.1 mmol/L Chloride Level 100 L 101-111 mmol/L Carbon Dioxide Level 33 H 21-32 mmol/L Blood Urea Nitrogen 45 H 7-18 mg/dL Creatinine 0.6 0.5-1.3 mg/dL Glomerular Filtration Rate Calc 113 >90 mL/min Random Glucose 281 #H 70-105 mg/dL Total Calcium 8.4 L 8.5-10.1 mg/dL Magnesium Level 2.30 1.80-2.40 mg/dL Diagnostics / Radiology: [Copy/Paste Echos/Imaging Report here] Impression and Plan: [Patient indicates he is doing much better. Denies any nausea. Denies any pain. Indicates he is having a lot of flatus. I am still concerned due to the KUB findings. Have ordered a CT scan with oral contrast. Patient may still need to go the operating room for an exploratory laparotomy. We will make my decision after reviewing the CT scan.] STANLEY ALLISON MD Apr 05, 2025 17:42
[2025-04-05 20:00] VITALS: BP 109/76; PULSE 74; RESP 16; TEMP 97.4; O2SAT 97
[2025-04-05] MEDS: CLINIMIX E IV ONE (22:07)
[2025-04-05] MEDS: MULTITRACE IV ONE (22:07)
[2025-04-05] MEDS: [UNRECOGNIZED DRUG - OTHER] IV ONE (22:07)
[2025-04-06] VITALS (8 sets, daily range): BP systolic 88–159; BP diastolic 64–84; PULSE 71–121; RESP 12–18; TEMP 96.9–98.5; O2SAT 94–96
[2025-04-06 05:32] LABS: NUCLEATED RED BLOOD CELLS 0.0 % (0.0-0.19); PLATELET COUNT (AUTO) 112.0 K/uL (130-400); RED BLOOD CELL COUNT(AUTO) 4.49 MIL/uL (4.50-6.20); RED CELL DISTRIBUTION WIDTH 13.4 % (11.0-15.5); WHITE BLOOD COUNT (AUTO) 5.1 K/uL (4.8-10.8)
[2025-04-06 05:57] LABS: CREATININE 0.4 mg/dL (0.5-1.3); GLOMERULAR FILTR. RATE CALC 128.0 mL/min (>90); GLUCOSE,RANDOM 202.0 mg/dL (70-105); SODIUM SERUM 134.0 mmol/L (136-145); UREA NITROGEN, BLOOD 28.0 mg/dL (7-18)
[2025-04-06] MEDS ORDERED: PoTASSium chl 10% ELIXIR 20MEQ 20 MEQ/15 ML UDCUP PO PRN (06:30)
[2025-04-06] MEDS: PoTASSium chloRIDE 20MEQ ER 20 MEQ ERTAB PO PRN (06:50)
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
--- NOTE | 2025-04-06 12:06 | PN ---
GENERAL SURGERY PROGRESS NOTE Date/Time Patient Seen: [ April 06, 2025] Problem List: [Partial bowel obstruction] Interval History: [Patient indicates he is having a lot of flatus. CT scan was done with oral contrast. There appears to be oral contrast throughout the small bowel. The small bowel appears distended. There appears to be some stool within the colon and there may be a trickle of contrast within the cecum. The timing of the CT scan versus the administration of the oral contrast lithium could have been too quick to allow contrast to make its way into the colon. Patient denies any pain at this point in time. ] Current Medications Medications (Trade) Dose Ordered Sig/Kenneth Route Start Time Stop Time Status Last Admin Dose Admin Ceftriaxone Sodium (ROCEphine 1G INJ) 1 gm Q24H IVPB 04/02/25 02:30 04/04/25 14:19 DC 04/04/25 02:18 1 GM Famotidine (Pepcid 20mg Vial) 20 mg DAILY IV 04/02/25 09:00 04/02/25 10:06 DC 04/02/25 07:57 20 MG Fat Emulsion Intravenous 250 ml @ 42 mls/hr DAILY10 IV 04/05/25 10:00 04/11/25 15:58 04/06/25 10:45 42 MLS/HR Furosemide (LASix 40MG VIAL) 40 mg DAILY IV 04/03/25 09:00 04/02/25 10:06 DC Insulin Human Regular (humuLIN R 100 UNIT/ML 3ML) INSULIN SLIDING SCAL... Q6H6 SQ 04/05/25 12:00 05/05/25 11:59 04/05/25 13:18 4 UNIT Lactated Ringer's 1,000 ml @ 75 mls/hr [id number] IV 04/02/25 02:30 04/04/25 09:18 DC 04/03/25 04:47 75 MLS/HR Multivitamins/ Minerals 10 ml/ Folic Acid 1 mg/ Thiamine HCl 100 mg/Sodium Chloride 1,010 ml @ 75 mls/hr DAILY IV 04/03/25 11:30 04/05/25 22:27 DC 04/03/25 13:02 75 MLS/HR Olanzapine (ZyPREXA 5 mg tab) 5 mg HS PO 04/05/25 21:00 05/05/25 20:59 04/05/25 22:07 5 MG Pantoprazole Sodium (PROTonix 40MG INJ) 40 mg DAILY IVP 04/03/25 09:00 05/03/25 08:59 04/06/25 09:08 40 MG Physical Examination: Awake, alert, oriented x3 Unlabored Regular rate and rhythm Abdomen soft, nontender, nondistended Vital Signs (last 8hr) Date Time Temp Pulse Resp B/P (MAP) Pulse Ox O2 Delivery O2 Flow Rate FiO2 04/06/25 09:08 96 Room Air* 0 21 04/06/25 08:00 98.4 83 18 159/72 91 Room Air Laboratory: [ ] Hematology Labs: Test 04/06/25 05:10 Range/Units White Blood Count 5.1 4.8-10.8 K/uL Red Blood Count 4.49 L 4.50-6.20 MIL/uL Hemoglobin 13.2 L 14.0-18.0 g/dL Hematocrit 37.8 L 42-54 % Mean Corpuscular Volume 84.2 79-99 fL Mean Corpuscular Hemoglobin 29.4 27.0-33.0 pg Mean Corpuscular Hemoglobin Concent 34.9 32.0-36.0 g/dL Red Cell Distribution Width 13.4 11.0-15.5 % Platelet Count 112 #L 130-400 K/uL Mean Platelet Volume 9.0 7.5-10.5 fL Nucleated Red Blood Cells 0.0 0.0-0.19 % Chemistry Labs: Test 04/06/25 10:56 04/06/25 05:10 Range/Units Whole Blood Glucose 178 H 70-110 MG/DL Sodium Level 134 L 136-145 mmol/L Potassium Level 3.1 L 3.5-5.1 mmol/L Chloride Level 100 L 101-111 mmol/L Carbon Dioxide Level 29 21-32 mmol/L Blood Urea Nitrogen 28 H 7-18 mg/dL Creatinine 0.4 L 0.5-1.3 mg/dL Glomerular Filtration Rate Calc 128 >90 mL/min Random Glucose 202 H 70-105 mg/dL Total Calcium 8.4 L 8.5-10.1 mg/dL Diagnostics / Radiology: [Copy/Paste Echos/Imaging Report here] Impression and Plan: [Patient is a partial bowel obstruction. I personally looked at the CT scan. There appears to be distended small bowel with contrast within it however there does not appear to be any specific transitory point. There appeared to be some trickle of contrast within the colon. I will wait for another 24 hours to see if patient has a bowel activity after the administration of the Gastrografin. If patient does then we will start patient on a clear liquid diet. If not patient may need an exploration. This was discussed with the patient and he indicates he understands.] STANLEY ALLISON MD Apr 06, 2025 12:06
[2025-04-06] MEDS ORDERED: 0.9%NACL 1000ML 1,000 ML IV SCH ×2 (17:00→18:00)
--- NOTE | 2025-04-06 17:30 | NUR ---
BEDSIDE SWALLOW EVAL COMPLETED. No s/s of aspiration. RECOMMENDATIONS: Regular solids, thin liquids and pills whole with liquids as tolerated. COMPENSATORY STRATEGIES: 1. sit upright during oral intake TITLE I TEACHER reviewed results and recommendations with patient and nurse Dacia. TITLE I TEACHER educated patient on risks and consequences of aspiration. Speech therapy not warranted at this time. All questions answered. Addendum: 04/06/[address] [facility]LE[facility] GRE[facility] Amended: Links added.
--- NOTE | 2025-04-06 21:58 | HMCIMG ---
EXAM: CT ABDOMEN AND PELVIS WITHOUT IV CONTRAST CLINICAL HISTORY: Small bowel obstruction (SBO). TECHNIQUE: Axial computed tomography images of the abdomen and pelvis obtained without intravenous contrast. Multiplanar reconstructions reviewed. CONTRAST: No IV contrast administered. COMPARISON: CT Abdomen and Pelvis with IV contrast dated 04/01/25 at 22:08 EDT. FINDINGS: LUNG BASES: Left-sided pleural effusion measuring up to 3.0 cm with adjacent subsegmental atelectasis and mild subpleural scarring. Right lung base clear. No pneumothorax. LIVER: Normal in size and contour. No focal hepatic lesion. Mild diffuse hypodensity consistent with hepatic steatosis. GALLBLADDER AND BILE DUCTS: Gallbladder contains faint hyperdense dependent sludge. No wall thickening or pericholecystic fluid. No intrahepatic or extrahepatic biliary ductal dilatation. PANCREAS: Normal in contour and attenuation. No ductal dilatation or peripancreatic inflammation. SPLEEN: Normal in size and attenuation. ADRENAL GLANDS: Normal bilaterally. KIDNEYS, URETERS, AND BLADDER: Kidneys are normal in size and cortical thickness. No hydronephrosis or calculi. Ureters of normal caliber. Urinary bladder normal in contour and wall thickness. STOMACH AND BOWEL: Nodular concentric wall thickening of the sigmoid colon extending into the rectosigmoid junction, measuring up to 1.4 cm in maximal thickness over a 7???8 cm segment, with loss of mural stratification and mild surrounding fat stranding. Findings remain suspicious for neoplastic rather than inflammatory etiology. Upstream colon (ascending, transverse, and descending) demonstrates fecal impaction. Small bowel loops are dilated, measuring up to 6.0 cm in diameter with multiple air-fluid levels and interloop fluid collections, consistent with mechanical small bowel obstruction secondary to distal colonic narrowing. Ileal loops are collapsed. No pneumatosis or pneumoperitoneum. APPENDIX: Not clearly delineated. No pericecal inflammatory changes. PERITONEUM: Small interloop fluid noted. No free intraperitoneal air. No drainable abscess. LYMPH NODES: No significant retroperitoneal, mesenteric, or pelvic lymphadenopathy. REPRODUCTIVE: Prostate and seminal vesicles appear unremarkable. No pelvic mass or collection. VASCULATURE: Abdominal aorta and major branches are normal in caliber. No aneurysm or dissection. BONES: No acute osseous abnormality or aggressive bony lesion. IMPRESSION: * Persistent nodular concentric wall thickening of the sigmoid and rectosigmoid colon (max 1.4 cm, length 7???8 cm) with associated loss of mural stratification and mild pericolic stranding ??? highly suggestive of neoplastic etiology. * Dilated small bowel loops up to 6.0 cm with multiple air-fluid levels and interloop fluid ??? mechanical small bowel obstruction likely secondary to distal colonic narrowing. * No pneumoperitoneum, abscess, or new osseous abnormality. RADIOLOGIC???CLINICAL CORRELATION: Findings indicate persistent infiltrative thickening of the sigmoid and rectosigmoid colon with progressive upstream fecal impaction and small bowel distension, consistent with a malignant colonic stricture causing evolving mechanical obstruction. The morphology and absence of mural stratification favor colorectal carcinoma over inflammatory causes. Recommend colonoscopy with biopsy for histopathologic confirmation and surgical consultation for obstruction management. COMPARISON SUMMARY (vs 04/01/25): Sigmoid/rectosigmoid thickening remains stable in extent and morphology. There is interval increase in proximal fecal loading and small bowel dilatation (from 5.5 cm to 6.0 cm) with new interloop fluid collections and progressive obstructive features. Left pleural effusion unchanged. /Addison
[2025-04-06] MEDS: MULTITRACE IV ONE (22:47)
[2025-04-06] MEDS: CLINIMIX E IV ONE (22:47)
[2025-04-06] MEDS: [UNRECOGNIZED DRUG - OTHER] IV ONE (22:47)
[2025-04-07] VITALS (7 sets, daily range): BP systolic 94–118; BP diastolic 63–85; PULSE 80–108; RESP 12–21; TEMP 98–98.7; O2SAT 97
[2025-04-07 05:08] LABS: NUCLEATED RED BLOOD CELLS 0.0 % (0.0-0.19); PLATELET COUNT (AUTO) 90.0 K/uL (130-400); RED BLOOD CELL COUNT(AUTO) 4.03 MIL/uL (4.50-6.20); RED CELL DISTRIBUTION WIDTH 13.4 % (11.0-15.5); WHITE BLOOD COUNT (AUTO) 4.4 K/uL (4.8-10.8)
[2025-04-07 05:23] LABS: ASPARTATE AMINOTRANSFERASE 27.0 U/L (10-37); CREATININE 0.4 mg/dL (0.5-1.3); GLOMERULAR FILTR. RATE CALC 128.0 mL/min (>90); GLUCOSE,RANDOM 147.0 mg/dL (70-105); SODIUM SERUM 136.0 mmol/L (136-145); TOTAL PROTEIN, SERUM 4.5 g/dL (6.0-8.3); UREA NITROGEN, BLOOD 25.0 mg/dL (7-18)
--- NOTE | 2025-04-07 10:39 | NUR ---
ALAN received call from Kat [phone] from [employer]. drug worker was collecting information and SW voiced the allegations that pt had reported during visits. As per oil field caser she was going to come to [facility] and see pt today or tomorrow.
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
[2025-04-07] MEDS: MAGNESIUM HYDROXIDE 30 ML/UDCUP PO ONE (14:05)
[2025-04-07] MEDS: LACTULOSE 20 GM/30 ML UDCUP PO ONE (14:05)
--- NOTE | 2025-04-07 16:07 | PN ---
GENERAL SURGERY PROGRESS NOTE Date/Time Patient Seen: [April 07, 2025] Problem List: [Partial bowel obstruction] Interval History: [Patient indicates he had a bowel movement early this morning. Patient is still having flatus. Patient feels significantly better. With a his TPN had, patient feels that he is regaining his strength. No nausea or abdominal pain at this point in time. ] Current Medications Medications (Trade) Dose Ordered Sig/Kenneth Route Start Time Stop Time Status Last Admin Dose Admin Ceftriaxone Sodium (ROCEphine 1G INJ) 1 gm Q24H IVPB 04/02/25 02:30 04/04/25 14:19 DC 04/04/25 02:18 1 GM Famotidine (Pepcid 20mg Vial) 20 mg DAILY IV 04/02/25 09:00 04/02/25 10:06 DC 04/02/25 07:57 20 MG Fat Emulsion Intravenous 250 ml @ 42 mls/hr DAILY10 IV 04/05/25 10:00 04/11/25 15:58 04/07/25 10:14 42 MLS/HR Furosemide (LASix 40MG VIAL) 40 mg DAILY IV 04/03/25 09:00 04/02/25 10:06 DC Insulin Human Regular (humuLIN R 100 UNIT/ML 3ML) INSULIN SLIDING SCAL... Q6H6 SQ 04/05/25 12:00 05/05/25 11:59 04/06/25 12:08 178 UNIT Lactated Ringer's 1,000 ml @ 75 mls/hr [id number] IV 04/02/25 02:30 04/04/25 09:18 DC 04/03/25 04:47 75 MLS/HR Multivitamins/ Minerals 10 ml/ Folic Acid 1 mg/ Thiamine HCl 100 mg/Sodium Chloride 1,010 ml @ 75 mls/hr DAILY IV 04/03/25 11:30 04/05/25 22:27 DC 04/03/25 13:02 75 MLS/HR Olanzapine (ZyPREXA 5 mg tab) 5 mg HS PO 04/05/25 21:00 05/05/25 20:59 04/06/25 22:01 5 MG Pantoprazole Sodium (PROTonix 40MG INJ) 40 mg DAILY IVP 04/03/25 09:00 05/03/25 08:59 04/07/25 08:36 40 MG Sodium Chloride 1,000 ml @ 0 mls/hr Q0M IV 04/06/25 17:00 04/06/25 17:59 DC Sodium Chloride 1,000 ml @ 0 mls/hr Q0M IV 04/06/25 18:00 04/06/25 17:16 DC Physical Examination: Awake, alert, orientated x3 Regular rate and rhythm. Unlabored Abdomen is soft, nontender Vital Signs (last 8hr) Date Time Temp Pulse Resp B/P (MAP) Pulse Ox O2 Delivery O2 Flow Rate FiO2 04/07/25 11:56 98.2 87 21 116/81 97 Room Air 21 Laboratory: [ ] Hematology Labs: Test 04/07/25 04:47 Range/Units White Blood Count 4.4 L 4.8-10.8 K/uL Red Blood Count 4.03 L 4.50-6.20 MIL/uL Hemoglobin 12.0 L 14.0-18.0 g/dL Hematocrit 34.0 L 42-54 % Mean Corpuscular Volume 84.4 79-99 fL Mean Corpuscular Hemoglobin 29.8 27.0-33.0 pg Mean Corpuscular Hemoglobin Concent 35.3 32.0-36.0 g/dL Red Cell Distribution Width 13.4 11.0-15.5 % Platelet Count 90 L 130-400 K/uL Mean Platelet Volume 9.8 7.5-10.5 fL Nucleated Red Blood Cells 0.0 0.0-0.19 % Chemistry Labs: Test 04/07/25 11:19 04/07/25 04:47 Range/Units Whole Blood Glucose 140 H 70-110 MG/DL Bedside Glucose Comment Notified Nurse Sodium Level 136 136-145 mmol/L Potassium Level 3.8 3.5-5.1 mmol/L Chloride Level 102 101-111 mmol/L Carbon Dioxide Level 32 21-32 mmol/L Blood Urea Nitrogen 25 H 7-18 mg/dL Creatinine 0.4 L 0.5-1.3 mg/dL Glomerular Filtration Rate Calc 128 >90 mL/min Random Glucose 147 H 70-105 mg/dL Total Calcium 8.2 L 8.5-10.1 mg/dL Total Bilirubin 0.8 0.2-1.0 mg/dL Aspartate Amino Transf (AST/SGOT) 27 10-37 U/L Alanine Aminotransferase (ALT/SGPT) 47 12-78 U/L Alkaline Phosphatase 70 50-136 U/L Total Protein 4.5 L 6.0-8.3 g/dL Albumin 2.0 L 3.5-5.0 g/dL Diagnostics / Radiology: [Copy/Paste Echos/Imaging Report here] Impression and Plan: [Patient appears to be doing better.. Still concerned that patient has a partial obstruction. We will try the patient on bowel regimen a clear liquid diet today. If patient continues to have bowel function then passed patient's diet. No surgical intervention planned for now.] STANLEY ALLISON MD Apr 07, 2025 16:07
--- NOTE | 2025-04-07 16:50 | NUR ---
SPEECH NOTE: FOLLOW UP SENIOR EDUCATION SPECIALIST coordinated with nurse Lopes. As per nurse, patient tolerating diet recommendations of minced and moist solids, thin liquids with no overt s/s of aspiration. Please re-consult speech therapy services if any s/s of aspiration arise. All questions answered. Addendum: 04/08/[address] [facility]LE[facility] GREEN Amended: Links added.
[2025-04-07] MEDS: CLINIMIX E IV ONE (23:39)
[2025-04-07] MEDS: MULTITRACE IV ONE (23:39)
[2025-04-07] MEDS: [UNRECOGNIZED DRUG - OTHER] IV ONE (23:39)
[2025-04-08] VITALS (10 sets, daily range): BP systolic 71–135; BP diastolic 49–79; PULSE 76–127; RESP 12–20; TEMP 97.8–98.9; O2SAT 99
[2025-04-08 05:14] LABS: IMMATURE GRANULOCYTE ABSOLUTE 0.03 K/uL (0-1); NUCLEATED RED BLOOD CELLS 0.0 % (0.0-0.19); PLATELET COUNT (AUTO) 85 K/uL (130-400); RED BLOOD CELL COUNT(AUTO) 4.01 MIL/uL (4.50-6.20); RED CELL DISTRIBUTION WIDTH 13.4 % (11.0-15.5); WHITE BLOOD COUNT (AUTO) 2.8 K/uL (4.8-10.8)
[2025-04-08 05:29] LABS: ASPARTATE AMINOTRANSFERASE 32.0 U/L (10-37); CREATININE 0.3 mg/dL (0.5-1.3); GLOMERULAR FILTR. RATE CALC 140.0 mL/min (>90); GLUCOSE,RANDOM 133.0 mg/dL (70-105); SODIUM SERUM 133.0 mmol/L (136-145); TOTAL PROTEIN, SERUM 4.6 g/dL (6.0-8.3); UREA NITROGEN, BLOOD 26.0 mg/dL (7-18)
[2025-04-08 05:58] LABS: BAND NEUTROPHILS % (MANUAL) 6 % (0-2); EOSINOPHILS % (MANUAL) 1 % (1-6); LYMPHOCYTES % (MANUAL) 19 % (22-44); MONOCYTES % (MANUAL) 14 % (2-9); REACTIVE LYMPHOCYTES 4 % (0-0); SEGMENTED NEUTROPHILS % 56 % (40-70)
[2025-04-08 05:59] LABS: MAN.DIFF COMMENT-IMPRESSION MANUAL DIFFERENTIAL
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
[2025-04-08] MEDS: 0.9%NACL 1000ML 1,000 ML IV SCH (15:44)
--- NOTE | 2025-04-08 15:45 | PN ---
GENERAL SURGERY PROGRESS NOTE Date/Time Patient Seen: [ April 08, 2025] Problem List: [Partial bowel obstruction] Interval History: [Patient had some nausea and some emesis. He did not tolerate his class. Repeat CT scan still consistent with a thickened sigmoid versus rectum. Patient's blood pressure has been low. We will plan to take the patient to the operating room tomorrow morning. ] Current Medications Medications (Trade) Dose Ordered Sig/Kenneth Route Start Time Stop Time Status Last Admin Dose Admin Ceftriaxone Sodium (ROCEphine 1G INJ) 1 gm Q24H IVPB 04/02/25 02:30 04/04/25 14:19 DC 04/04/25 02:18 1 GM Famotidine (Pepcid 20mg Vial) 20 mg DAILY IV 04/02/25 09:00 04/02/25 10:06 DC 04/02/25 07:57 20 MG Fat Emulsion Intravenous 250 ml @ 42 mls/hr DAILY10 IV 04/05/25 10:00 04/11/25 15:58 04/08/25 09:25 42 MLS/HR Furosemide (LASix 40MG VIAL) 40 mg DAILY IV 04/03/25 09:00 04/02/25 10:06 DC Insulin Human Regular (humuLIN R 100 UNIT/ML 3ML) INSULIN SLIDING SCAL... Q6H6 SQ 04/05/25 12:00 05/05/25 11:59 04/06/25 12:08 178 UNIT Lactated Ringer's 1,000 ml @ 75 mls/hr [id number] IV 04/02/25 02:30 04/04/25 09:18 DC 04/03/25 04:47 75 MLS/HR Multivitamins/ Minerals 10 ml/ Folic Acid 1 mg/ Thiamine HCl 100 mg/Sodium Chloride 1,010 ml @ 75 mls/hr DAILY IV 04/03/25 11:30 04/05/25 22:27 DC 04/03/25 13:02 75 MLS/HR Olanzapine (ZyPREXA 5 mg tab) 5 mg HS PO 04/05/25 21:00 04/08/25 11:56 DC 04/07/25 20:46 5 MG Pantoprazole Sodium (PROTonix 40MG INJ) 40 mg DAILY IVP 04/03/25 09:00 04/08/25 12:57 DC 04/08/25 09:22 40 MG Sodium Chloride 1,000 ml @ 0 mls/hr Q0M IV 04/06/25 17:00 04/06/25 17:59 DC Sodium Chloride 1,000 ml @ 0 mls/hr Q0M IV 04/06/25 18:00 04/06/25 17:16 DC Sodium Chloride 1,000 ml @ 0 mls/hr Q0M IV 04/08/25 16:00 04/08/25 16:59 UNV Sodium Chloride 1,000 ml @ 0 mls/hr Q0M IV 04/08/25 17:00 05/08/25 16:59 UNV Physical Examination: Awake, alert, oriented x3 Unlabored Regular rate and rhythm Abdomen soft, slightly distended Vital Signs (last 8hr) Date Time Temp Pulse Resp B/P (MAP) Pulse Ox O2 Delivery O2 Flow Rate FiO2 04/08/25 11:28 98.8 127 18 135/79 94 Room Air 04/08/25 07:59 98.1 96 18 112/72 Room Air Laboratory: [ ] Hematology Labs: Test 04/08/25 04:57 Range/Units White Blood Count 2.8 L 4.8-10.8 K/uL Red Blood Count 4.01 L 4.50-6.20 MIL/uL Hemoglobin 12.0 L 14.0-18.0 g/dL Hematocrit 34.0 L 42-54 % Mean Corpuscular Volume 84.8 79-99 fL Mean Corpuscular Hemoglobin 29.9 27.0-33.0 pg Mean Corpuscular Hemoglobin Concent 35.3 32.0-36.0 g/dL Red Cell Distribution Width 13.4 11.0-15.5 % Platelet Count 85 L 130-400 K/uL Mean Platelet Volume 10.2 7.5-10.5 fL Immature Granulocyte % (Auto) 1.1 H 0-1 % Neutrophils (%) (Auto) 60.4 40.0-77.0 % Lymphocytes (%) (Auto) 21.2 21.0-51.0 % Monocytes (%) (Auto) 16.2 H 3.0-13.0 % Eosinophils (%) (Auto) 0.7 0.0-8.0 % Basophils (%) (Auto) 0.4 0.0-5.0 % Neutrophils # (Auto) 1.7 L 1.8-7.7 K/uL Lymphocytes # (Auto) 0.6 L 1.0-4.8 K/uL Monocytes # (Auto) 0.5 0.1-1.0 K/uL Eosinophils # (Auto) 0.02 0.00-0.70 K/uL Basophils # (Auto) 0.01 0.00-0.20 K/uL Absolute Immature Granulocyte (auto 0.03 0-1 K/uL Segmented Neutrophils % 56 40-70 % Band Neutrophils % 6 H 0-2 % Lymphocytes % (Manual) 19 L 22-44 % Monocytes % (Manual) 14 H 2-9 % Eosinophils % (Manual) 1 1-6 % Nucleated Red Blood Cells 0.0 0.0-0.19 % Differential Comment MANUAL DIFFERENTIAL Reactive Lymphocytes 4 H 0-0 % White Cell Morphology Comment See comments Platelet Morphology Comment See comments Red Blood Cell Morphology See comments Chemistry Labs: Test 04/08/25 12:00 04/08/25 04:57 04/07/25 18:24 Range/Units Whole Blood Glucose 108 70-110 MG/DL Sodium Level 133 L 136-145 mmol/L Potassium Level 4.2 3.5-5.1 mmol/L Chloride Level 101 101-111 mmol/L Carbon Dioxide Level 32 21-32 mmol/L Blood Urea Nitrogen 26 H 7-18 mg/dL Creatinine 0.3 L 0.5-1.3 mg/dL Glomerular Filtration Rate Calc 140 >90 mL/min Random Glucose 133 H 70-105 mg/dL Total Calcium 8.3 L 8.5-10.1 mg/dL Magnesium Level 2.10 1.80-2.40 mg/dL Total Bilirubin 1.1 H 0.2-1.0 mg/dL Aspartate Amino Transf (AST/SGOT) 32 10-37 U/L Alanine Aminotransferase (ALT/SGPT) 56 12-78 U/L Alkaline Phosphatase 78 50-136 U/L Total Protein 4.6 L 6.0-8.3 g/dL Albumin 1.9 L 3.5-5.0 g/dL Bedside Glucose Comment Notified Nurse Diagnostics / Radiology: [Copy/Paste Echos/Imaging Report here] Impression and Plan: [Patient did not tolerate his clears. We will plan take the patient to the operating room tomorrow. We will plan an exploratory laparotomy and associated procedures. Risks associated with the procedure not limited to infection, bleeding, injury to surrounding structures has been explained to the patient and he indicates he understands and would like to proceed..] STANLEY ALLISON MD Apr 08, 2025 15:45
[2025-04-08 15:59] LABS: IMMATURE GRANULOCYTE ABSOLUTE 0.03 K/uL (0-1); NUCLEATED RED BLOOD CELLS 0.0 % (0.0-0.19); PLATELET COUNT (AUTO) 89 K/uL (130-400); RED BLOOD CELL COUNT(AUTO) 4.06 MIL/uL (4.50-6.20); RED CELL DISTRIBUTION WIDTH 13.5 % (11.0-15.5); WHITE BLOOD COUNT (AUTO) 5.6 K/uL (4.8-10.8)
[2025-04-08] MEDS ORDERED: 0.9%NACL 1000ML 500 ML IV SCH (16:00)
[2025-04-08 16:20] LABS: CREATININE 0.6 mg/dL (0.5-1.3); GLOMERULAR FILTR. RATE CALC 113.0 mL/min (>90); GLUCOSE,RANDOM 104.0 mg/dL (70-105); SODIUM SERUM 134.0 mmol/L (136-145); UREA NITROGEN, BLOOD 27.0 mg/dL (7-18)
[2025-04-08 16:24] LABS: ASPARTATE AMINOTRANSFERASE 37.0 U/L (10-37); TOTAL PROTEIN, SERUM 4.7 g/dL (6.0-8.3)
[2025-04-08] MEDS ORDERED: 0.9%NACL 1000ML 1,000 ML IV SCH (17:00)
--- NOTE | 2025-04-08 18:26 | NUR ---
RECEIVED PATIENT VIA BED FROM ROOM 308 DUE TO HYPOTENSION AND TACHYCARDIA. CURRENT VITAL SIGNS: 98.4, HR 95, RR 20 BP 112/66, SPO2 99% ON ROOM AIR. APPEARS COMFORTABLE. DENIES PAIN. TELEMETRY READING SR HR 95. PLAN OF CARE DISCUSSED AND QUESTIONS ANSWERED. BLOOD GLUCOSE 110.
[2025-04-08] MEDS: ALBUMIN (HUMAN) 25% 50 ML IV SCH ×2 (20:41→21:27)
[2025-04-08] MEDS: CLINIMIX E IV ONE (20:57)
[2025-04-08] MEDS: MULTITRACE IV ONE (20:57)
[2025-04-08] MEDS: [UNRECOGNIZED DRUG - OTHER] IV ONE (20:57)
--- NOTE | 2025-04-08 21:35 | CONS ---
[facility] CONSULTATION NOTE Date Patient Seen: Apr 08, 2025 Time of Visit: 21:18 Supervising Physician: Dr Chandan Ann Reason for Consultation: Hypotension Consulting Physician: [Hospitalist Outpatient Specialists: [ ] Inpatient Consults: [facility] PROBLEM LIST: Acute hypotension, initial lactic acid of 1.6, has NGT, likely from volume depletion Small-bowel obstruction, mechanical, with suspected malignancy currently NPO, has a NGT, we will undergo ex lap in a.m. Severe malnutrition, BMI of 17.0 Chronic obstructive pulmonary disease Diabetes mellitus type 2, History of CAD History of stroke History of Hypertension, has hypotensive episode, hold antihypertensive for PLAN: 54-year-old male with past medical history of COPD, DM type 2, hypertension, who presented initially with complaint of abdominal pain and found to have small-bowel obstruction. Was initially admitted to [facility] but wa s transferred to PCCU for persistent hypotension. Formerly [facility], [facility] critical Care was consulted for management. Continue albumin Continue midodrine Start LR 100 cc/hour BP monitoring per unit protocol Strict I&O Rest of plan care of primary, general surgery HPI: 54-year-old male with past medical history of hypertension, COPD, DM type who initially presented to [facility] last 04/01/2025 with complaint of abdominal pain and was found to have small bowel obstruction on routine CT scan of the abdomen. Patient was initially admitted to the [facility] patient was subsequently referred to Gastroenterology, and recommended sigmoidoscopy. Last April 02 patient underwent flexible sigmoidoscopy with results showing tight angulation at rectosigmoid junction with edematous m ucosa, with no obvious tumor . General surgery was also consulted and recommended NGT insertion as initial intervention. Patient was subsequently started on clear liquid diet but was not able to tolerate it and had some episodes of abdominal distention, with associated pain, and vomiting. NGT was then reinserted and general surgery plan to do exploratory laparotomy in the morning. Earlier this afternoon patient became acutely hypotensive with blood pressure of 71/49 and heart rate of 120. Patient was given1 L of IV fluids with significant improvement in his blood pressure and was transferred to PCCU for further management. Formerly [facility], [facility] critical Care was consulted for evaluation and management of hypotension. Patient was seen and examined in his room with no relatives present at bedside. At present patient is currently hemodynamically stable, on IV fluids, normal sinus rhythm on the monitor, with SBP above 100. He is not requiring any pressors and makes adequate urine output. Pertinent labs and imaging reviewed and noted. Patient denies any headache, chest pain, cough, fever, however complains of abdominal pain on palpation. Has NGT to low intermittent suction with greenish [id number] output. PAST MEDICAL HX: see above PAST SURGICAL HX: noncontributory SOCIAL HISTORY: No tobacco, ETOH, or illicit drug use Coded Allergies: No Known Drug Allergies (Unverified Allergy, Unknown, 03/18/22) REVIEW OF SYSTEMS: 12 point ROS reviewed with patient. Pertinent positives mentioned above. Otherwise negative. PHYSICAL EXAM: GENERAL: alert, looks very weak and emaciated HEENT: EOMI, Sclera non icteric, moist mucosa NECK: Supple, no JVD, trachea midline LUNGS: Clear breath sounds bilaterally. No wheezes HEART: Regular rate and rhythm. Normal S1 and S2, without murmurs ABD: Very tender abdomen EXT: No clubbing cyanosis or edema NEURO: Alert and oriented to person, follows commands Vital Signs (last 8hr) Date Time Temp Pulse Resp B/P (MAP) Pulse Ox O2 Delivery O2 Flow Rate FiO2 04/08/25 19:23 99.0 100 18 101/68 100 Room Air 04/08/25 18:30 98.4 95 20 112/66 99 Room Air 04/08/25 16:51 95/66 04/08/25 16:02 97.9 120 18 71/49 100 Room Air LABS: Hematology Labs: Test 04/08/25 15:51 04/08/25 04:57 Range/Units White Blood Count 5.6 # 4.8-10.8 K/uL Red Blood Count 4.06 L 4.50-6.20 MIL/uL Hemoglobin 11.9 L 14.0-18.0 g/dL Hematocrit 34.5 L 42-54 % Mean Corpuscular Volume 85.0 79-99 fL Mean Corpuscular Hemoglobin 29.3 27.0-33.0 pg Mean Corpuscular Hemoglobin Concent 34.5 32.0-36.0 g/dL Red Cell Distribution Width 13.5 11.0-15.5 % Platelet Count 89 L 130-400 K/uL Mean Platelet Volume 9.6 7.5-10.5 fL Immature Granulocyte % (Auto) 0.5 0-1 % Neutrophils (%) (Auto) 84.9 H 40.0-77.0 % Lymphocytes (%) (Auto) 5.5 L 21.0-51.0 % Monocytes (%) (Auto) 8.9 3.0-13.0 % Eosinophils (%) (Auto) 0.0 0.0-8.0 % Basophils (%) (Auto) 0.2 0.0-5.0 % Neutrophils # (Auto) 4.8 1.8-7.7 K/uL Lymphocytes # (Auto) 0.3 L 1.0-4.8 K/uL Monocytes # (Auto) 0.5 0.1-1.0 K/uL Eosinophils # (Auto) 0.00 0.00-0.70 K/uL Basophils # (Auto) 0.01 0.00-0.20 K/uL Absolute Immature Granulocyte (auto 0.03 0-1 K/uL Nucleated Red Blood Cells 0.0 0.0-0.19 % Segmented Neutrophils % 56 40-70 % Band Neutrophils % 6 H 0-2 % Lymphocytes % (Manual) 19 L 22-44 % Monocytes % (Manual) 14 H 2-9 % Eosinophils % (Manual) 1 1-6 % Differential Comment MANUAL DIFFERENTIAL Reactive Lymphocytes 4 H 0-0 % White Cell Morphology Comment See comments Platelet Morphology Comment See comments Red Blood Cell Morphology See comments Chemistry Labs: Test 04/08/25 19:50 04/08/25 18:35 04/08/25 15:51 04/08/25 04:57 Range/Units Lactic Acid Level 1.6 0.8-2.5 mmol/L Whole Blood Glucose 110 70-110 MG/DL Sodium Level 134 L 136-145 mmol/L Potassium Level 4.0 3.5-5.1 mmol/L Chloride Level 99 L 101-111 mmol/L Carbon Dioxide Level 32 21-32 mmol/L Blood Urea Nitrogen 27 H 7-18 mg/dL Creatinine 0.6 0.5-1.3 mg/dL Glomerular Filtration Rate Calc 113 >90 mL/min Random Glucose 104 70-105 mg/dL Total Calcium 8.4 L 8.5-10.1 mg/dL Total Bilirubin 1.2 H 0.2-1.0 mg/dL Aspartate Amino Transf (AST/SGOT) 37 10-37 U/L Alanine Aminotransferase (ALT/SGPT) 65 12-78 U/L Alkaline Phosphatase 86 50-136 U/L Troponin I High Sensitivity 9 4-75 ng/L C-Reactive Protein, Quantitative 15.10 H 0.5-3.0 mg/L Total Protein 4.7 L 6.0-8.3 g/dL Albumin 2.1 L 3.5-5.0 g/dL Procalcitonin 0.84 H 0.05-0.5 ng/mL Magnesium Level 2.10 1.80-2.40 mg/dL Test 04/07/25 18:24 Range/Units Bedside Glucose Comment Notified Nurse DIAGNOSTICS / RADIOLOGY RESULTS: [ ] PLAN NEURO: Minimize central acting medications as possible. Fall Precautions. Well lighted room through the day and minimize interruptions through the night to prevent acute delirium. PULMONARY: Supplemental 02 as needed Titrate Fio2 to keep Spo2 > or = 90% DuoNebs and CPT as needed IS hourly while awake for pulmonary hygiene Out of bed to chair as tolerated CARDIOVASCULAR: Follow hemodynamics. Titrate vasopressor to keep MAP >65 or systolic blood pressure >95mmHg DIPS: None LINES: PIV GI & NUTRITION: NPO Aspirations precautions Prokinetic agents and laxatives as needed KIDNEYS & ELECTROLYTES: Strict monitoring of intake and output Daily weights Avoid nephrotoxic agents Monitor electrolytes and replace as needed Goal urine output of 30mL/hr or 0.5mL/kg/hr Urine output: [ ] Fluid Balance: [ ] ENDOCRINE: Maintain blood glucose between 100-180 at all times. Insulin sliding scale for blood glucose management INFECTIOUS DISEASE: Trend temperature. Garcia-culture if febrile. Micro: [ ] Antibiotics: [ ] HEMATOLOGY & COAGULATION: Monitor H&H. Keep Hgb > 7 Transfuse 1 unit of PRBC for Hgb < 7 Transfuse 1 pack of platelets of platelets < 20, 000 Watch for any signs and symptoms of bleeding SKIN: Pressure ulcer prevention per facility protocol Rehab: PT/OT Prophylaxis: GI: PPI DVT: Bilateral SCDs Code Status: Full Resuscitation Disposition: Stable and can be downgraded to medical-surgical floor, [facility] critical care will sign off on the case. Other: Total patient care time exceeds 35 minutes excluding all procedures. Supervising physician: TOSIN Aviles AGACN Apr 08, 2025 21:35
[2025-04-08] MEDS: LACTATED RINGERS 1000ML 1,000 ML IV SCH (21:50)
[2025-04-09] VITALS (26 sets, daily range): BP systolic 101–157; BP diastolic 60–98; PULSE 56–103; RESP 10–28; TEMP 97.7–98.9; O2SAT 97–100
[2025-04-09 05:02] LABS: NUCLEATED RED BLOOD CELLS 0.0 % (0.0-0.19); PLATELET COUNT (AUTO) 85.0 K/uL (130-400); RED BLOOD CELL COUNT(AUTO) 3.32 MIL/uL (4.50-6.20); RED CELL DISTRIBUTION WIDTH 13.2 % (11.0-15.5); WHITE BLOOD COUNT (AUTO) 6.0 K/uL (4.8-10.8)
[2025-04-09 05:22] LABS: ASPARTATE AMINOTRANSFERASE 28.0 U/L (10-37); CREATININE 0.3 mg/dL (0.5-1.3); GLOMERULAR FILTR. RATE CALC 140.0 mL/min (>90); GLUCOSE,RANDOM 103.0 mg/dL (70-105); SODIUM SERUM 136.0 mmol/L (136-145); TOTAL PROTEIN, SERUM 4.3 g/dL (6.0-8.3); UREA NITROGEN, BLOOD 20.0 mg/dL (7-18)
--- NOTE | 2025-04-09 07:30 | NUR ---
TAKEN TO OR VIA BED, PERSONAL BELONGINGS TAKEN BY RN TRAUMA, APPROPRIATE PAPERWORK SIGNED BY PATIENT AND NURSE, VASHTI.
[2025-04-09] MEDS ORDERED: LIDOCAINE PF 100MG/5ML (2%) SYRINGE 5ML ONE (07:56)
[2025-04-09] MEDS ORDERED: MIDAZOLAM HCL 1 MG/ML 2ML VIAL ONE (07:56)
[2025-04-09] MEDS ORDERED: ALBUMIN (HUMAN) 5% 250 ML IV ONE (08:43)
--- NOTE | 2025-04-09 09:30 | NUR ---
WAS NOTIFIED BY [employer] EDUCATION CONSULTANT THAT PATIENT WILL BE TRANSFERRED TO ICU ROOM 208 AFTER SURGICAL PROCEDURE.
--- NOTE | 2025-04-09 09:45 | NUR ---
REPORTED OFF TO ICU NURSETHOMAS.
[2025-04-09] MEDS ORDERED: GLYCOPYRROLATE 0.2 MG/ML 5 ML VIAL ONE (10:06)
--- NOTE | 2025-04-09 10:26 | OP ---
Operative Note: DATE OF PROCEDURE: 04/09/25 SURGEON: STANLEY ALLISON MD DESK PEN SET ASSEMBLER: [Blair Rodriguez CFA] ANESTHESIA: [General endotracheal anesthesia] ANESTHESIOLOGIST/DRYWALL MECHANIC: [[facility] anesthesia team] PREOPERATIVE DIAGNOSIS: [Bowel obstruction with frozen abdomen] POSTOPERATIVE DIAGNOSIS: [Same] SYNOPSIS: [Patient bowel obstruction frozen abdomen. Patient's condition resistant to conservative management Exploratory laparotomy Enterolysis for approximately an hour and a half Diverting loop colostomy Suture repair of colon All sponges and instruments accounted for at the end the case Patient tolerated the procedure well, there no complications] PROCEDURE: [Exploratory laparotomy Enterolysis for approximately an hour and a half Diverting loop colostomy Suture repair of colon ] ESTIMATED BLOOD LOSS: [Less than 100 cc] INDICATIONS: [Persistent bowel obstruction and frozen abdomen] DESCRIPTION OF PROCEDURE: [On day of surgery patient presented to the hospital. Patient was brought back to operating room. Positioned in the supine position. Preoperative antibiotics were given. Bilateral SCDs were placed. Patient was intubated. Patient then was prepped and draped the usual fashion. Midline skin incision made with a knife. Dissection down to the fascia was done electrocautery. Abdomen was entered sharply. Of immediate note there was significant amount of adhesions throughout the abdomen. The abdomen was in fact frozen. Careful sharp enterolysis was then undertaken. Enterolysis took approximately an hour and half to free up a portion of the colon specifically the hepatic flexure portion of the ascending colon portion of the transverse colon in some of the small bowel. The rest of the abdomen was intimately frozen was impossible to totally free up all the bowel. This point in time it appeared that the small bowel was indeed draining into the proximal colon and the decision to possibly bring out a diverting loop colostomy was made. During the sharp enterolysis there were portions of the colon that were intimately fused with the anterior abdominal wall. Separation of the required repair of the colon. It was that were fused and had to be transected were then repaired primarily with silk suture and imbricated fashion. Imbricated repair was oversewn with silk suture. Then my attention was turned to the diverting loop colostomy. A defect was made in the anterior abdominal wall on the right abdomen. Portion of the colon that was mobile enough was brought through the defect. Then the abdomen was copiously irrigated. All irrigation was removed. Appropriate hemostasis was observed. Then the midline fascia was closed with 1 Looped PDS suture in a running fashion. Then my attention was turned to the d iverting loop colostomy. Colon was brought through the defect. Incision was made in the colon wall.. In the diverting loop colostomy was matured with a Vicryl suture. Healthy loop colostomy was noted. Both afferent and efferent limbs were in correct orientation. Colostomy bag was placed. Appropriate dressings were placed. Patient has woken up, transferred to a stretcher, taken to recovery room to recovery. All sponges and instruments were accounted for at the end the case. Patient tolerated the procedure well, there no complications.] STANLEY ALLISON MD Apr 09, 2025 10:26
--- NOTE | 2025-04-09 11:35 | PN ---
[facility] PROGRESS NOTE Date Patient Seen: Apr 09, 2025 Time of Visit: 11:35 Supervising Physician: Franco Ribeiro MD Consulting Physician: [Hospitalist Outpatient Specialists: [ ] Inpatient Consults: [facility] PROBLEM LIST: Small-bowel obstruction, mechanical, with suspected malignancy currently S/p Exploratory laparotomy Enterolysis for approximately an hour and a half Diverting loop colostomy Suture repair of colon ] on 04/09/[address] Mcgrath Extensive intra-abdominal adhesions Severe malnutrition, BMI of 17.0 Chronic obstructive pulmonary disease Diabetes mellitus type 2, History of CAD History of stroke History of Hypertension, has hypotensive episode, hold antihypertensive for INTERVAL HISTORY: Per general surgery pt transferred to ICU post surgery due to marginal blood pressures and recent hypotensive episodes. Pt was seen post surgery in the ICU AAOx3. with NG to LIS continues NPO and on LIS. reports abdominal pain. Colostomy in place. denies nausea or vomiting at this time. Plan continue TPN stop IVF CBC, CMP and lactic at this time Chest XR in am Levophed PRN MAP < 65 follow general surgery recommendations No thoracentesis indicated for the bilateral pleural effusion Continue with IV Abx monitor colostomy output. monitor for bleeding REVIEW OF SYSTEMS: 12 point ROS reviewed with patient. Pertinent positives mentioned above. Otherwise negative. PHYSICAL EXAM: GENERAL: alert, looks very weak and emaciated HEENT: EOMI, Sclera non icteric, moist mucosa NG tube NECK: Supple, no JVD, trachea midline LUNGS: Clear breath sounds bilaterally. No wheezes HEART: Regular rate and rhythm. Normal S1 and S2, without murmurs ABD: Very tender abdomen EXT: No clubbing cyanosis or edema NEURO: Alert and oriented to person, follows commands Vital Signs (last 8hr) Date Time Temp Pulse Resp B/P (MAP) Pulse Ox O2 Delivery O2 Flow Rate FiO2 04/09/25 07:30 99 Room Air* 0 21 04/09/25 06:50 98.1 88 18 130/65 99 Room Air 0.0 04/09/25 04:23 98.1 75 18 102/60 98 Room Air LABS: Hematology Labs: Test 04/09/25 04:32 04/08/25 15:51 04/08/25 04:57 Range/Units White Blood Count 6.0 4.8-10.8 K/uL Red Blood Count 3.32 L 4.50-6.20 MIL/uL Hemoglobin 10.0 L 14.0-18.0 g/dL Hematocrit 28.1 L 42-54 % Mean Corpuscular Volume 84.6 79-99 fL Mean Corpuscular Hemoglobin 30.1 27.0-33.0 pg Mean Corpuscular Hemoglobin Concent 35.6 32.0-36.0 g/dL Red Cell Distribution Width 13.2 11.0-15.5 % Platelet Count 85 L 130-400 K/uL Mean Platelet Volume 10.3 7.5-10.5 fL Nucleated Red Blood Cells 0.0 0.0-0.19 % Immature Granulocyte % (Auto) 0.5 0-1 % Neutrophils (%) (Auto) 84.9 H 40.0-77.0 % Lymphocytes (%) (Auto) 5.5 L 21.0-51.0 % Monocytes (%) (Auto) 8.9 3.0-13.0 % Eosinophils (%) (Auto) 0.0 0.0-8.0 % Basophils (%) (Auto) 0.2 0.0-5.0 % Neutrophils # (Auto) 4.8 1.8-7.7 K/uL Lymphocytes # (Auto) 0.3 L 1.0-4.8 K/uL Monocytes # (Auto) 0.5 0.1-1.0 K/uL Eosinophils # (Auto) 0.00 0.00-0.70 K/uL Basophils # (Auto) 0.01 0.00-0.20 K/uL Absolute Immature Granulocyte (auto 0.03 0-1 K/uL Segmented Neutrophils % 56 40-70 % Band Neutrophils % 6 H 0-2 % Lymphocytes % (Manual) 19 L 22-44 % Monocytes % (Manual) 14 H 2-9 % Eosinophils % (Manual) 1 1-6 % Differential Comment MANUAL DIFFERENTIAL Reactive Lymphocytes 4 H 0-0 % White Cell Morphology Comment See comments Platelet Morphology Comment See comments Red Blood Cell Morphology See comments Chemistry Labs: Test 04/09/25 05:35 04/09/25 04:32 04/08/25 19:50 04/08/25 15:51 Range/Units Whole Blood Glucose 98 70-110 MG/DL Sodium Level 136 136-145 mmol/L Potassium Level 3.7 3.5-5.1 mmol/L Chloride Level 106 101-111 mmol/L Carbon Dioxide Level 28 21-32 mmol/L Blood Urea Nitrogen 20 H 7-18 mg/dL Creatinine 0.3 L 0.5-1.3 mg/dL Glomerular Filtration Rate Calc 140 >90 mL/min Random Glucose 103 70-105 mg/dL Total Calcium 8.4 L 8.5-10.1 mg/dL Total Bilirubin 1.9 #H 0.2-1.0 mg/dL Aspartate Amino Transf (AST/SGOT) 28 10-37 U/L Alanine Aminotransferase (ALT/SGPT) 57 12-78 U/L Alkaline Phosphatase 66 50-136 U/L Total Protein 4.3 L 6.0-8.3 g/dL Albumin 1.9 L 3.5-5.0 g/dL Lactic Acid Level 1.6 0.8-2.5 mmol/L Troponin I High Sensitivity 9 4-75 ng/L C-Reactive Protein, Quantitative 15.10 H 0.5-3.0 mg/L Procalcitonin 0.84 H 0.05-0.5 ng/mL Test 04/08/25 04:57 04/07/25 18:24 Range/Units Magnesium Level 2.10 1.80-2.40 mg/dL Bedside Glucose Comment Notified Nurse DIAGNOSTICS / RADIOLOGY RESULTS: [ ] [place] [address] [address] IMAGING REPORT Signed PATIENT: MERVAT SINGH MR#: [id number] : 1970 SEX: M AGE: 54 LOCATION: [facility] ORDER [id number] STATUS: ADM IN [facility]ICAL [facility]ENTER REPORT#: [id number] SERVICE [id number] REASON: SBO ORDERING PHYSICIAN: STANLEY MCGRATH MD PROCEDURE: ABD PEL WO - CT ABDOMEN/PELVIS W/O CONTRAST EXAM: CT ABDOMEN AND PELVIS WITHOUT IV CONTRAST CLINICAL HISTORY: Small bowel obstruction (SBO). TECHNIQUE: Axial computed tomography images of the abdomen and pelvis obtained without intravenous contrast. Multiplanar reconstructions reviewed. CONTRAST: No IV contrast administered. COMPARISON: CT Abdomen and Pelvis with IV contrast dated 04/01/25 at 22:08 EDT. FINDINGS: LUNG BASES: Left-sided pleural effusion measuring up to 3.0 cm with adjacent subsegmental atelectasis and mild subpleural scarring. Right lung base clear. No pneumothorax. LIVER: Normal in size and contour. No focal hepatic lesion. Mild diffuse hypodensity consistent with hepatic steatosis. GALLBLADDER AND BILE DUCTS: Gallbladder contains faint hyperdense dependent sludge. No wall thickening or pericholecystic fluid. No intrahepatic or extrahepatic biliary ductal dilatation. PANCREAS: Normal in contour and attenuation. No ductal dilatation or peripancreatic inflammation. SPLEEN: Normal in size and attenuation. ADRENAL GLANDS: Normal bilaterally. KIDNEYS, URETERS, AND BLADDER: Kidneys are normal in size and cortical thickness. No hydronephrosis or calculi. Ureters of normal caliber. Urinary bladder normal in contour and wall thickness. STOMACH AND BOWEL: Nodular concentric wall thickening of the sigmoid colon extending into the rectosigmoid junction, measuring up to 1.4 cm in maximal thickness over a 7???8 cm segment, with loss of mural stratification and mild surrounding fat stranding. Findings remain suspicious for neoplastic rather than inflammatory etiology. Upstream colon (ascending, transverse, and descending) demonstrates fecal impaction. Small bowel loops are dilated, measuring up to 6.0 cm in diameter with multiple air-fluid levels and interloop fluid collections, consistent with mechanical small bowel obstruction secondary to distal colonic narrowing. Ileal loops are collapsed. No pneumatosis or pneumoperitoneum. APPENDIX: Not clearly delineated. No pericecal inflammatory changes. PERITONEUM: Small interloop fluid noted. No free intraperitoneal air. No drainable abscess. LYMPH NODES: No significant retroperitoneal, mesenteric, or pelvic lymphadenopathy. REPRODUCTIVE: Prostate and seminal vesicles appear unremarkable. No pelvic mass or collection. VASCULATURE: Abdominal aorta and major branches are normal in caliber. No aneurysm or dissection. BONES: No acute osseous abnormality or aggressive bony lesion. IMPRESSION: * Persistent nodular concentric wall thickening of the sigmoid and rectosigmoid colon (max 1.4 cm, length 7???8 cm) with associated loss of mural stratification and mild pericolic stranding ??? highly suggestive of neoplastic etiology. * Dilated small bowel loops up to 6.0 cm with multiple air-fluid levels and interloop fluid ??? mechanical small bowel obstruction likely secondary to distal colonic narrowing. * No pneumoperitoneum, abscess, or new osseous abnormality. RADIOLOGIC???CLINICAL CORRELATION: Findings indicate persistent infiltrative thickening of the sigmoid and rectosigmoid colon with progressive upstream fecal impaction and small bowel distension, consistent with a malignant colonic stricture causing evolving mechanical obstruction. The morphology and absence of mural stratification favor colorectal carcinoma over inflammatory causes. Recommend colonoscopy with biopsy for histopathologic confirmation and surgical consultation for obstruction management. COMPARISON SUMMARY (vs 04/01/25): Sigmoid/rectosigmoid thickening remains stable in extent and morphology. There is interval increase in proximal fecal loading and small bowel dilatation (from 5.5 cm to 6.0 cm) with new interloop fluid collections and progressive obstructive features. Left pleural effusion unchanged. /Pax DICTATED BY: JEISON BEAR MD DATE: 04/06/252256 ELECTRONICALLY SIGNED BY: JEISON BEAR MD DATE: 04/06/252256 PLAN NEURO: Minimize central acting medications as possible. Fall Precautions. Well lighted room through the day and minimize interruptions through the night to prevent acute delirium. PULMONARY: Supplemental 02 as needed Titrate Fio2 to keep Spo2 > or = 90% DuoNebs and CPT as needed IS hourly while awake for pulmonary hygiene Out of bed to chair as tolerated CARDIOVASCULAR: Follow hemodynamics. Titrate vasopressor to keep MAP >65 or systolic blood pressure >95mmHg DIPS: None LINES: PIV GI & NUTRITION: NPO Aspirations precautions Prokinetic agents and laxatives as needed KIDNEYS & ELECTROLYTES: Strict monitoring of intake and output Daily weights Avoid nephrotoxic agents Monitor electrolytes and replace as needed Goal urine output of 30mL/hr or 0.5mL/kg/hr Urine output: [ ] Fluid Balance: [ ] ENDOCRINE: Maintain blood glucose between 100-180 at all times. Insulin sliding scale for blood glucose management INFECTIOUS DISEASE: Trend temperature. Garcia-culture if febrile. Micro: [ ] Antibiotics: [ ] HEMATOLOGY & COAGULATION: Monitor H&H. Keep Hgb > 7 Transfuse 1 unit of PRBC for Hgb < 7 Transfuse 1 pack of platelets of platelets < 20, 000 Watch for any signs and symptoms of bleeding SKIN: Pressure ulcer prevention per facility protocol Rehab: PT/OT Prophylaxis: GI: PPI DVT: Bilateral SCDs Code Status: Full Resuscitation Disposition: ICU Other: Total patient care time exceeds 35 minutes excluding all procedures. ATTESTATION BY PHYSICIAN I have evaluated the patient chart, medical records, and spoke with appropriate staff. I reviewed the documentation, medical decision making, and treatment plan as noted by the mid-level provider above. I agree with the findings and plan of care. Franco Ribeiro MD, [facility] Apr 09, 2025 11:35
[2025-04-09 12:02] LABS: IMMATURE GRANULOCYTE ABSOLUTE 0.02 K/uL (0-1); NUCLEATED RED BLOOD CELLS 0.0 % (0.0-0.19); PLATELET COUNT (AUTO) 42 K/uL (130-400); RED BLOOD CELL COUNT(AUTO) 3.46 MIL/uL (4.50-6.20); RED CELL DISTRIBUTION WIDTH 13.5 % (11.0-15.5); WHITE BLOOD COUNT (AUTO) 3.7 K/uL (4.8-10.8)
[2025-04-09 12:17] LABS: ASPARTATE AMINOTRANSFERASE 32.0 U/L (10-37); SODIUM SERUM 135.0 mmol/L (136-145); TOTAL PROTEIN, SERUM 4.4 g/dL (6.0-8.3)
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
[2025-04-09 12:30] LABS: CREATININE 0.3 mg/dL (0.5-1.3); GLOMERULAR FILTR. RATE CALC 140.0 mL/min (>90); GLUCOSE,RANDOM 119.0 mg/dL (70-105); UREA NITROGEN, BLOOD 18.0 mg/dL (7-18)
[2025-04-09] MEDS: CLINIMIX E IV ONE (21:21)
[2025-04-09] MEDS: [UNRECOGNIZED DRUG - OTHER] IV ONE (21:21)
[2025-04-09] MEDS: MULTITRACE IV ONE (21:21)
[2025-04-10] VITALS (14 sets, daily range): BP systolic 114–135; BP diastolic 63–90; PULSE 70–95; RESP 15–23; TEMP 97.5–98.8; O2SAT 97–100
[2025-04-10 05:41] LABS: NUCLEATED RED BLOOD CELLS 0.0 % (0.0-0.19); PLATELET COUNT (AUTO) 147.0 K/uL (130-400); RED BLOOD CELL COUNT(AUTO) 3.18 MIL/uL (4.50-6.20); RED CELL DISTRIBUTION WIDTH 13.1 % (11.0-15.5); WHITE BLOOD COUNT (AUTO) 5.8 K/uL (4.8-10.8)
[2025-04-10 05:58] LABS: ASPARTATE AMINOTRANSFERASE 22.0 U/L (10-37); CREATININE 0.3 mg/dL (0.5-1.3); GLOMERULAR FILTR. RATE CALC 140.0 mL/min (>90); GLUCOSE,RANDOM 144.0 mg/dL (70-105); SODIUM SERUM 132.0 mmol/L (136-145); TOTAL PROTEIN, SERUM 4.5 g/dL (6.0-8.3); UREA NITROGEN, BLOOD 18.0 mg/dL (7-18)
--- NOTE | 2025-04-10 08:22 | PN ---
[facility] PROGRESS NOTE Date Patient Seen: Apr 10, 2025 Time of Visit: 08:22 Supervising Physician: Franco Ribeiro MD Consulting Physician: [Hospitalist Outpatient Specialists: [ ] Inpatient Consults: [facility] PROBLEM LIST: Small-bowel obstruction, mechanical, with suspected malignancy currently S/p Exploratory laparotomyon 04/09/[address] Mcgrath Enterolysis for approximately an hour and a half Diverting loop colostomy Suture repair of colon ] Extensive intra-abdominal adhesions Severe malnutrition, BMI of 17.0 Chronic obstructive pulmonary disease Diabetes mellitus type 2, History of CAD History of stroke History of Hypertension, has hypotensive episode, hold antihypertensive for INTERVAL HISTORY: Patient is awake alert and oriented x3. Currently on 2 L via nasal cannula in no apparent respiratory distress. He has been hemodynamically stable with no need of pressors in last 24 hours. General surgery has evaluated patient this morning and recommends NG tube to be clamped at this time. Continue TPN for now. Patient has remained afebrile saturating 100% on 2 L. We will can start weaning off oxygen. Gastric output via NG tube only 150 mL in last 24 hours. Plan continue TPN Wean O2 maintain O2 sats above 92% CBC, CMP and lactic at this time Follow General surgery recommendations Clamp NG tube per general surgery follow general surgery recommendations Small bilateral pleural effusions no indication for thoracentesis at this time. Continue with IV Abx monitor colostomy output. monitor for bleeding REVIEW OF SYSTEMS: 12 point ROS reviewed with patient. Pertinent positives mentioned above. Otherwise negative. PHYSICAL EXAM: GENERAL: alert, looks very weak and emaciated HEENT: EOMI, Sclera non icteric, moist mucosa NG tube NECK: Supple, no JVD, trachea midline LUNGS: Clear breath sounds bilaterally. No wheezes HEART: Regular rate and rhythm. Normal S1 and S2, without murmurs ABD: Very tender abdomen EXT: No clubbing cyanosis or edema NEURO: Alert and oriented to person, follows commands Vital Signs (last 8hr) Date Time Temp Pulse Resp B/P (MAP) Pulse Ox O2 Delivery O2 Flow Rate FiO2 04/10/25 08:08 98.1 04/10/25 03:00 99 Nasal Cannula* 2 28 04/10/25 02:17 84 23 114/81 98 Nasal Cannula 2.0 04/10/25 01:41 77 17 121/80 100 Nasal Cannula 2.0 LABS: Hematology Labs: Test 04/10/25 05:34 04/09/25 11:50 Range/Units White Blood Count 5.8 # 4.8-10.8 K/uL Red Blood Count 3.18 L 4.50-6.20 MIL/uL Hemoglobin 9.6 L 14.0-18.0 g/dL Hematocrit 27.0 L 42-54 % Mean Corpuscular Volume 84.9 79-99 fL Mean Corpuscular Hemoglobin 30.2 27.0-33.0 pg Mean Corpuscular Hemoglobin Concent 35.6 32.0-36.0 g/dL Red Cell Distribution Width 13.1 11.0-15.5 % Platelet Count 147 # 130-400 K/uL Mean Platelet Volume 9.7 7.5-10.5 fL Nucleated Red Blood Cells 0.0 0.0-0.19 % Immature Granulocyte % (Auto) 0.5 0-1 % Neutrophils (%) (Auto) 84.1 H 40.0-77.0 % Lymphocytes (%) (Auto) 7.0 L 21.0-51.0 % Monocytes (%) (Auto) 7.8 3.0-13.0 % Eosinophils (%) (Auto) 0.3 0.0-8.0 % Basophils (%) (Auto) 0.3 0.0-5.0 % Neutrophils # (Auto) 3.1 1.8-7.7 K/uL Lymphocytes # (Auto) 0.3 L 1.0-4.8 K/uL Monocytes # (Auto) 0.3 0.1-1.0 K/uL Eosinophils # (Auto) 0.01 0.00-0.70 K/uL Basophils # (Auto) 0.01 0.00-0.20 K/uL Absolute Immature Granulocyte (auto 0.02 0-1 K/uL Chemistry Labs: Test 04/10/25 06:20 04/10/25 05:34 04/09/25 11:50 04/08/25 15:51 Range/Units Whole Blood Glucose 133 H 70-110 MG/DL Sodium Level 132 L 136-145 mmol/L Potassium Level 3.7 3.5-5.1 mmol/L Chloride Level 101 101-111 mmol/L Carbon Dioxide Level 27 21-32 mmol/L Blood Urea Nitrogen 18 7-18 mg/dL Creatinine 0.3 L 0.5-1.3 mg/dL Glomerular Filtration Rate Calc 140 >90 mL/min Random Glucose 144 H 70-105 mg/dL Total Calcium 8.6 8.5-10.1 mg/dL Magnesium Level 2.00 1.80-2.40 mg/dL Total Bilirubin 1.7 H 0.2-1.0 mg/dL Aspartate Amino Transf (AST/SGOT) 22 10-37 U/L Alanine Aminotransferase (ALT/SGPT) 49 # 12-78 U/L Alkaline Phosphatase 68 50-136 U/L Total Protein 4.5 L 6.0-8.3 g/dL Albumin 1.8 L 3.5-5.0 g/dL Lactic Acid Level 1.7 0.8-2.5 mmol/L Troponin I High Sensitivity 9 4-75 ng/L C-Reactive Protein, Quantitative 15.10 H 0.5-3.0 mg/L Procalcitonin 0.84 H 0.05-0.5 ng/mL DIAGNOSTICS / RADIOLOGY RESULTS: [ ] PLAN NEURO: Minimize central acting medications as possible. Fall Precautions. Well lighted room through the day and minimize interruptions through the night to prevent acute delirium. PULMONARY: Supplemental 02 as needed Titrate Fio2 to keep Spo2 > or = 90% DuoNebs and CPT as needed IS hourly while awake for pulmonary hygiene Out of bed to chair as tolerated CARDIOVASCULAR: Follow hemodynamics. Titrate vasopressor to keep MAP >65 or systolic blood pressure >95mmHg DIPS: None LINES: PIV GI & NUTRITION: NPO Aspirations precautions Prokinetic agents and laxatives as needed KIDNEYS & ELECTROLYTES: Strict monitoring of intake and output Daily weights Avoid nephrotoxic agents Monitor electrolytes and replace as needed Goal urine output of 30mL/hr or 0.5mL/kg/hr Urine output: [ ] Fluid Balance: [ ] ENDOCRINE: Maintain blood glucose between 100-180 at all times. Insulin sliding scale for blood glucose management INFECTIOUS DISEASE: Trend temperature. Garcia-culture if febrile. Micro: [ ] Antibiotics: [ ] HEMATOLOGY & COAGULATION: Monitor H&H. Keep Hgb > 7 Transfuse 1 unit of PRBC for Hgb < 7 Transfuse 1 pack of platelets of platelets < 20, 000 Watch for any signs and symptoms of bleeding SKIN: Pressure ulcer prevention per facility protocol Rehab: PT/OT Prophylaxis: GI: PPI DVT: Bilateral SCDs Code Status: Full Resuscitation Disposition: Medical-surgical. Other: ATTESTATION BY PHYSICIAN I have evaluated the patient chart, medical records, and spoke with appropriate staff. I reviewed the documentation, medical decision making, and treatment plan as noted by the mid-level provider above. I agree with the findings and plan of care. Franco Ribeiro MD, NELLY J AGACNP Apr 10, 2025 08:22
--- NOTE | 2025-04-10 10:20 | NUR ---
MD VISIT DR ALLISON @ BEDSIDE. MD UPDATED ON PT'S STATUS. PLAN OF CARE REVIEWED W/PT. ABDOMINAL DRY & INTACT, NO DRAINAGE NOTED. COLOSTOMY INTACT. NGT RIGHT NARE CLAMPED BY @ 1030. ORDERS FOR NGT GIVEN @ ENTERED.
--- NOTE | 2025-04-10 10:55 | PN ---
GENERAL SURGERY PROGRESS NOTE Date/Time Patient Seen: [April 10, 2025 ] Problem List: [Partial bowel obstruction] Interval History: [Patient doing well post surgery. Patient's NG tube output is minimal. Blood pressure is stable. Pain is controlled with his current pain regimen. ] Current Medications Medications (Trade) Dose Ordered Sig/Kenneth Route Start Time Stop Time Status Last Admin Dose Admin Albumin Human 50 ml @ 100 mls/hr Q6H IV 04/08/25 21:30 04/09/25 07:44 DC 04/09/25 03:02 100 MLS/HR Albumin Human 50 ml @ 0 mls/hr TID IV 04/08/25 21:00 04/08/25 21:18 DC 04/08/25 20:41 100 MLS/HR Ceftriaxone Sodium (ROCEphine 1G INJ) 1 gm Q24H IVPB 04/02/25 02:30 04/04/25 14:19 DC 04/04/25 02:18 1 GM Famotidine (Pepcid 20mg Vial) 20 mg DAILY IV 04/02/25 09:00 04/02/25 10:06 DC 04/02/25 07:57 20 MG Fat Emulsion Intravenous 250 ml @ 42 mls/hr DAILY10 IV 04/05/25 10:00 04/11/25 15:58 04/10/25 09:47 42 MLS/HR Furosemide (LASix 40MG VIAL) 40 mg DAILY IV 04/03/25 09:00 04/02/25 10:06 DC Insulin Human Regular (humuLIN R 100 UNIT/ML 3ML) INSULIN SLIDING SCAL... Q6H6 SQ 04/05/25 12:00 05/05/25 11:59 04/09/25 18:30 3 UNIT Lactated Ringer's 1,000 ml @ 75 mls/hr [id number] IV 04/02/25 02:30 04/04/25 09:18 DC 04/03/25 04:47 75 MLS/HR Lactated Ringer's 1,000 ml @ 100 mls/hr Q10H IV 04/08/25 21:30 04/09/25 16:56 DC 04/09/25 06:59 100 MLS/HR Midodrine (PROAMatine 5 MG TABLET) 10 mg TID PO 04/08/25 21:00 05/08/25 20:59 04/08/25 20:40 10 MG Multivitamins/ Minerals 10 ml/ Folic Acid 1 mg/ Thiamine HCl 100 mg/Sodium Chloride 1,010 ml @ 75 mls/hr DAILY IV 04/03/25 11:30 04/05/25 22:27 DC 04/03/25 13:02 75 MLS/HR Olanzapine (ZyPREXA 5 mg tab) 5 mg HS PO 04/05/25 21:00 04/08/25 11:56 DC 04/07/25 20:46 5 MG Pantoprazole Sodium (PROTonix 40MG INJ) 40 mg DAILY IVP 04/03/25 09:00 04/08/25 12:57 DC 04/08/25 09:22 40 MG Sodium Chloride 500 ml @ 125 mls/hr Q4H IV 04/08/25 16:00 04/08/25 18:07 DC Sodium Chloride 1,000 ml @ 0 mls/hr Q0M IV 04/06/25 17:00 04/06/25 17:59 DC Sodium Chloride 1,000 ml @ 0 mls/hr Q0M IV 04/06/25 18:00 04/06/25 17:16 DC Sodium Chloride 1,000 ml @ 0 mls/hr Q0M IV 04/08/25 16:00 04/08/25 16:59 DC 04/08/25 15:44 500 MLS/HR Sodium Chloride 1,000 ml @ 0 mls/hr Q0M IV 04/08/25 17:00 04/08/25 15:46 DC Physical Examination: Awake, alert, oriented x3 Unlabored Regular rate and rhythm Abdomen soft, incision dressed. Ostomy pink. Minimal ostomy sweat right now Vital Signs (last 8hr) Date Time Temp Pulse Resp B/P (MAP) Pulse Ox O2 Delivery O2 Flow Rate FiO2 04/10/25 10:00 83 15 125/63 100 Nasal Cannula 2.0 28 04/10/25 09:00 70 17 120/80 100 Nasal Cannula 2.0 28 04/10/25 08:08 98.1 04/10/25 08:00 75 18 116/79 100 Nasal Cannula 2.0 28 04/10/25 07:00 78 17 116/76 100 Nasal Cannula 2.0 28 04/10/25 03:00 99 Nasal Cannula* 2 28 Laboratory: [ ] Hematology Labs: Test 04/10/25 05:34 04/09/25 11:50 Range/Units White Blood Count 5.8 # 4.8-10.8 K/uL Red Blood Count 3.18 L 4.50-6.20 MIL/uL Hemoglobin 9.6 L 14.0-18.0 g/dL Hematocrit 27.0 L 42-54 % Mean Corpuscular Volume 84.9 79-99 fL Mean Corpuscular Hemoglobin 30.2 27.0-33.0 pg Mean Corpuscular Hemoglobin Concent 35.6 32.0-36.0 g/dL Red Cell Distribution Width 13.1 11.0-15.5 % Platelet Count 147 # 130-400 K/uL Mean Platelet Volume 9.7 7.5-10.5 fL Nucleated Red Blood Cells 0.0 0.0-0.19 % Immature Granulocyte % (Auto) 0.5 0-1 % Neutrophils (%) (Auto) 84.1 H 40.0-77.0 % Lymphocytes (%) (Auto) 7.0 L 21.0-51.0 % Monocytes (%) (Auto) 7.8 3.0-13.0 % Eosinophils (%) (Auto) 0.3 0.0-8.0 % Basophils (%) (Auto) 0.3 0.0-5.0 % Neutrophils # (Auto) 3.1 1.8-7.7 K/uL Lymphocytes # (Auto) 0.3 L 1.0-4.8 K/uL Monocytes # (Auto) 0.3 0.1-1.0 K/uL Eosinophils # (Auto) 0.01 0.00-0.70 K/uL Basophils # (Auto) 0.01 0.00-0.20 K/uL Absolute Immature Granulocyte (auto 0.02 0-1 K/uL Chemistry Labs: Test 04/10/25 06:20 04/10/25 05:34 04/09/25 11:50 04/08/25 15:51 Range/Units Whole Blood Glucose 133 H 70-110 MG/DL Sodium Level 132 L 136-145 mmol/L Potassium Level 3.7 3.5-5.1 mmol/L Chloride Level 101 101-111 mmol/L Carbon Dioxide Level 27 21-32 mmol/L Blood Urea Nitrogen 18 7-18 mg/dL Creatinine 0.3 L 0.5-1.3 mg/dL Glomerular Filtration Rate Calc 140 >90 mL/min Random Glucose 144 H 70-105 mg/dL Total Calcium 8.6 8.5-10.1 mg/dL Magnesium Level 2.00 1.80-2.40 mg/dL Total Bilirubin 1.7 H 0.2-1.0 mg/dL Aspartate Amino Transf (AST/SGOT) 22 10-37 U/L Alanine Aminotransferase (ALT/SGPT) 49 # 12-78 U/L Alkaline Phosphatase 68 50-136 U/L Total Protein 4.5 L 6.0-8.3 g/dL Albumin 1.8 L 3.5-5.0 g/dL Lactic Acid Level 1.7 0.8-2.5 mmol/L Troponin I High Sensitivity 9 4-75 ng/L C-Reactive Protein, Quantitative 15.10 H 0.5-3.0 mg/L Procalcitonin 0.84 H 0.05-0.5 ng/mL Diagnostics / Radiology: [Copy/Paste Echos/Imaging Report here] Impression and Plan: [Patient's condition stabilized post surgery. We will DC [place]. We will do an NG tube clamp trial. Await bowel/ostomy function. PTOT. Pulmonary toilet..] STANLEY ALLISON MD Apr 10, 2025 10:55
--- NOTE | 2025-04-10 11:55 | NUR ---
PATIENT ARRIVED ON MED SURG UNIT. NO SIGNS OF DISTRESS OR PAIN ON ARRIVAL. WILL CONTINUE TO MONITOR AND CARRY OUT ORDERS.
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
--- NOTE | 2025-04-10 17:11 | NUR ---
NG TUBE REMOVED PER TELEPHONE ORDER WITH DR ALLISON. PT TOLERATED WELL. PAIN OF 0/10. WILL CONTINUE TO MONITOR.
[2025-04-11] VITALS (7 sets, daily range): BP systolic 100–116; BP diastolic 66–77; PULSE 80–92; RESP 17–18; TEMP 97.7–98.4; O2SAT 98–100
--- NOTE | 2025-04-11 01:07 | HMCIMG ---
EXAM: CHEST RADIOGRAPH, 1 VIEW Technique: Single frontal view of the chest; only the lung bases are visualized. Clinical Information: Hypoxic respiratory failure. Findings: Lungs and large airways: No focal air-space consolidation or mass is identified within the visualized lung bases. Pleura: Small left pleural effusion is present; no pneumothorax is identified. Heart and mediastinum: Cardiomediastinal contours are within normal limits. Lines and devices: A nasogastric tube is present with the tip projecting over the proximal stomach. Bones/joints: No acute osseous abnormality is identified. Impression: * Comparison: Compared with chest radiograph dated 04/05/2025 15:09 EDT, findings are stable including the small left pleural effusion; the nasogastric tube remains with the tip over the proximal stomach. * Small left pleural effusion without acute cardiopulmonary process identified on this limited single-view examination. /[place]
[2025-04-11 04:06] LABS: IMMATURE GRANULOCYTE ABSOLUTE 0.03 K/uL (0-1); NUCLEATED RED BLOOD CELLS 0.0 % (0.0-0.19); PLATELET COUNT (AUTO) 156 K/uL (130-400); RED BLOOD CELL COUNT(AUTO) 3.35 MIL/uL (4.50-6.20); RED CELL DISTRIBUTION WIDTH 13.1 % (11.0-15.5); WHITE BLOOD COUNT (AUTO) 5.3 K/uL (4.8-10.8)
[2025-04-11 04:32] LABS: ASPARTATE AMINOTRANSFERASE 18.0 U/L (10-37); CREATININE 0.3 mg/dL (0.5-1.3); GLOMERULAR FILTR. RATE CALC 140.0 mL/min (>90); GLUCOSE,RANDOM 73.0 mg/dL (70-105); LDL DIRECT 41.0 mg/dL (0-99); SODIUM SERUM 130.0 mmol/L (136-145); TOTAL PROTEIN, SERUM 4.8 g/dL (6.0-8.3); UREA NITROGEN, BLOOD 16.0 mg/dL (7-18)
[2025-04-11] MEDS: DEXTROSE 50%-WATER 50 ML DISP.SYRIN IV ONE (06:55)
--- NOTE | 2025-04-11 08:10 | NUR ---
BED ALARM PATIENT REFUSED BED ALARM TO BE ACTIVATED DURING STAY. EDUCATED PATIENT ON REASONS FOR BED ALARM AND EDUCATED ON FALL PREVENTION. PATIENT VOICED UNDERSTANDING, HOWEVER CONTINUE TO REFUSE. REFUSAL FORM SIGNED AND FILED IN CHARGE. PRIMARY NOTIFIED.
--- NOTE | 2025-04-11 11:49 | PN ---
GENERAL SURGERY PROGRESS NOTE Date/Time Patient Seen: [04/11/2025 ] Problem List: [Partial bowel obstruction] Interval History: [Patient was evaluated at bedside this morning. No acute overnight events were reported by the patient's nurse. Patient is doing well post surgery. NG tube was removed yesterday. He continues to be NPO. [place] was removed yesterday and patient urinated afterwards. Blood pressure is stable. Pain is controlled with his current pain regimen. Pending passage of flatus and output from the ostomy.] Current Medications Medications (Trade) Dose Ordered Sig/Kenneth Route Start Time Stop Time Status Last Admin Dose Admin Albumin Human 50 ml @ 100 mls/hr Q6H IV 04/08/25 21:30 04/09/25 07:44 DC 04/09/25 03:02 100 MLS/HR Albumin Human 50 ml @ 0 mls/hr TID IV 04/08/25 21:00 04/08/25 21:18 DC 04/08/25 20:41 100 MLS/HR Ceftriaxone Sodium (ROCEphine 1G INJ) 1 gm Q24H IVPB 04/02/25 02:30 04/04/25 14:19 DC 04/04/25 02:18 1 GM Famotidine (Pepcid 20mg Vial) 20 mg DAILY IV 04/02/25 09:00 04/02/25 10:06 DC 04/02/25 07:57 20 MG Fat Emulsion Intravenous 250 ml @ 42 mls/hr DAILY10 IV 04/05/25 10:00 04/11/25 10:21 DC 04/10/25 09:47 42 MLS/HR Furosemide (LASix 40MG VIAL) 40 mg DAILY IV 04/03/25 09:00 04/02/25 10:06 DC Insulin Human Regular (humuLIN R 100 UNIT/ML 3ML) INSULIN SLIDING SCAL... Q6H6 SQ 04/05/25 12:00 05/05/25 11:59 04/09/25 18:30 3 UNIT Lactated Ringer's 1,000 ml @ 75 mls/hr [id number] IV 04/02/25 02:30 04/04/25 09:18 DC 04/03/25 04:47 75 MLS/HR Lactated Ringer's 1,000 ml @ 100 mls/hr Q10H IV 04/08/25 21:30 04/09/25 16:56 DC 04/09/25 06:59 100 MLS/HR Midodrine (PROAMatine 5 MG TABLET) 10 mg TID PO 04/08/25 21:00 05/08/25 20:59 04/11/25 08:37 10 MG Multivitamins/ Minerals 10 ml/ Folic Acid 1 mg/ Thiamine HCl 100 mg/Sodium Chloride 1,010 ml @ 75 mls/hr DAILY IV 04/03/25 11:30 04/05/25 22:27 DC 04/03/25 13:02 75 MLS/HR Olanzapine (ZyPREXA 5 mg tab) 5 mg HS PO 04/05/25 21:00 04/08/25 11:56 DC 04/07/25 20:46 5 MG Pantoprazole Sodium (PROTonix 40MG INJ) 40 mg DAILY IVP 04/03/25 09:00 04/08/25 12:57 DC 04/08/25 09:22 40 MG Sodium Chloride 500 ml @ 125 mls/hr Q4H IV 04/08/25 16:00 04/08/25 18:07 DC Sodium Chloride 1,000 ml @ 0 mls/hr Q0M IV 04/06/25 17:00 04/06/25 17:59 DC Sodium Chloride 1,000 ml @ 0 mls/hr Q0M IV 04/06/25 18:00 04/06/25 17:16 DC Sodium Chloride 1,000 ml @ 0 mls/hr Q0M IV 04/08/25 16:00 04/08/25 16:59 DC 04/08/25 15:44 500 MLS/HR Sodium Chloride 1,000 ml @ 0 mls/hr Q0M IV 04/08/25 17:00 04/08/25 15:46 DC Physical Examination: Awake, alert, oriented x3 Unlabored breathing Regular rate and rhythm Abdomen soft, incision is clean and dry with bala in place. Ostomy pink with ostomy sweat noted Vital Signs (last 8hr) Date Time Temp Pulse Resp B/P (MAP) Pulse Ox O2 Delivery O2 Flow Rate FiO2 04/11/25 04:00 98.1 87 18 109/66 97 Room Air Laboratory: [ ] Hematology Labs: Test 04/11/25 03:53 Range/Units White Blood Count 5.3 4.8-10.8 K/uL Red Blood Count 3.35 L 4.50-6.20 MIL/uL Hemoglobin 9.9 L 14.0-18.0 g/dL Hematocrit 28.3 L 42-54 % Mean Corpuscular Volume 84.5 79-99 fL Mean Corpuscular Hemoglobin 29.6 27.0-33.0 pg Mean Corpuscular Hemoglobin Concent 35.0 32.0-36.0 g/dL Red Cell Distribution Width 13.1 11.0-15.5 % Platelet Count 156 130-400 K/uL Mean Platelet Volume 9.4 7.5-10.5 fL Immature Granulocyte % (Auto) 0.6 0-1 % Neutrophils (%) (Auto) 79.2 H 40.0-77.0 % Lymphocytes (%) (Auto) 8.8 L 21.0-51.0 % Monocytes (%) (Auto) 11.2 3.0-13.0 % Eosinophils (%) (Auto) 0.0 0.0-8.0 % Basophils (%) (Auto) 0.2 0.0-5.0 % Neutrophils # (Auto) 4.2 1.8-7.7 K/uL Lymphocytes # (Auto) 0.5 L 1.0-4.8 K/uL Monocytes # (Auto) 0.6 0.1-1.0 K/uL Eosinophils # (Auto) 0.00 0.00-0.70 K/uL Basophils # (Auto) 0.01 0.00-0.20 K/uL Absolute Immature Granulocyte (auto 0.03 0-1 K/uL Nucleated Red Blood Cells 0.0 0.0-0.19 % Chemistry Labs: Test 04/11/25 08:17 04/11/25 03:53 Range/Units Whole Blood Glucose 105 # 70-110 MG/DL Sodium Level 130 L 136-145 mmol/L Potassium Level 4.0 3.5-5.1 mmol/L Chloride Level 98 L 101-111 mmol/L Carbon Dioxide Level 28 21-32 mmol/L Blood Urea Nitrogen 16 7-18 mg/dL Creatinine 0.3 L 0.5-1.3 mg/dL Glomerular Filtration Rate Calc 140 >90 mL/min Random Glucose 73 70-105 mg/dL Lactic Acid Level 0.9 0.8-2.5 mmol/L Total Calcium 8.7 8.5-10.1 mg/dL Magnesium Level 1.90 1.80-2.40 mg/dL Total Bilirubin 2.2 #H 0.2-1.0 mg/dL Aspartate Amino Transf (AST/SGOT) 18 10-37 U/L Alanine Aminotransferase (ALT/SGPT) 51 12-78 U/L Alkaline Phosphatase 79 50-136 U/L Total Protein 4.8 L 6.0-8.3 g/dL Albumin 2.0 L 3.5-5.0 g/dL Triglycerides Level 32 30-200 mg/dL Cholesterol Level 69 # <200 mg/dL LDL Cholesterol 41 0-99 mg/dL HDL Cholesterol 28 L 29-71 mg/dL Diagnostics / Radiology: [Copy/Paste Echos/Imaging Report here] Impression and Plan: [Patient is doing well post-surgery. Continue NPO status. Await bowel/ostomy function. PT/OT. Pulmonary toilet. Will continue to monitor the patient.] Above patient's assessment and plan has been discussed with my attending physician, . Patient was transferred to the floor. Unfortunately patient's TPN and IV fluid were not restarted. Patient denies any pain this point in time. The nurse did indicate that patient's blood pressures been soft. Patient's abdomen is soft. His incisions clean and dry. His ostomy is pink. There is some flatus in his ostomy bag. Will start the patient on clear liquids. Will resume his TPN and his IV fluids. Will await further bowel function. I discussed the patient with my PA and agree with my PAs note above. JALYN NEVES PAC Apr 11, 2025 11:48 STANLEY ALLISON MD Apr 11, 2025 13:21
--- NOTE | 2025-04-11 12:05 | PN ---
[facility] PROGRESS NOTE Date Patient Seen: Apr 11, 2025 Time of Visit: 12:05 Supervising Physician: Dr. Franco Ribeiro PROBLEM LIST: Small-bowel obstruction, mechanical, with suspected malignancy currently S/p Exploratory laparotomy on 04/09/[address] Mcgrath Enterolysis for approximately an hour and a half Diverting loop colostomy Suture repair of colon Extensive intra-abdominal adhesions Severe malnutrition, BMI of 17.0 Chronic obstructive pulmonary disease Diabetes mellitus type 2, History of CAD History of stroke History of Hypertension, now hypotensive on midodrine. INTERVAL HISTORY: Patient is awake alert and oriented x3. Patient was transferred of ICU overnight.n Currently room air in no apparent respiratory distress. He has been hemodynamically stable with no need of pressors in last 48 hours. General surgery has evaluated patient. NGT was removed yesterday. Continue TPN for now. No faimily at bedside. Plan BIS will sign off, please reconsult if needed Continue TPN Wean O2 maintain O2 sats above 92% CBC, CMP and lactic at this time Follow General surgery recommendations Small bilateral pleural effusions no indication for thoracentesis at this time. Continue with IV Abx Nonitor colostomy output. REVIEW OF SYSTEMS: 12 point ROS reviewed with patient. Pertinent positives mentioned above. Othe rwise negative. PHYSICAL EXAM: GENERAL: alert, looks very weak and emaciated HEENT: EOMI, Sclera non icteric, moist mucosa NG tube NECK: Supple, no JVD, trachea midline LUNGS: Clear breath sounds bilaterally. No wheezes HEART: Regular rate and rhythm. Normal S1 and S2, without murmurs ABD: Very tender abdomen EXT: No clubbing cyanosis or edema NEURO: Alert and oriented to person, 3 follows commands LABS: Hematology Labs: Test 04/11/25 03:53 Range/Units White Blood Count 5.3 4.8-10.8 K/uL Red Blood Count 3.35 L 4.50-6.20 MIL/uL Hemoglobin 9.9 L 14.0-18.0 g/dL Hematocrit 28.3 L 42-54 % Mean Corpuscular Volume 84.5 79-99 fL Mean Corpuscular Hemoglobin 29.6 27.0-33.0 pg Mean Corpuscular Hemoglobin Concent 35.0 32.0-36.0 g/dL Red Cell Distribution Width 13.1 11.0-15.5 % Platelet Count 156 130-400 K/uL Mean Platelet Volume 9.4 7.5-10.5 fL Immature Granulocyte % (Auto) 0.6 0-1 % Neutrophils (%) (Auto) 79.2 H 40.0-77.0 % Lymphocytes (%) (Auto) 8.8 L 21.0-51.0 % Monocytes (%) (Auto) 11.2 3.0-13.0 % Eosinophils (%) (Auto) 0.0 0.0-8.0 % Basophils (%) (Auto) 0.2 0.0-5.0 % Neutrophils # (Auto) 4.2 1.8-7.7 K/uL Lymphocytes # (Auto) 0.5 L 1.0-4.8 K/uL Monocytes # (Auto) 0.6 0.1-1.0 K/uL Eosinophils # (Auto) 0.00 0.00-0.70 K/uL Basophils # (Auto) 0.01 0.00-0.20 K/uL Absolute Immature Granulocyte (auto 0.03 0-1 K/uL Nucleated Red Blood Cells 0.0 0.0-0.19 % Chemistry Labs: Test 04/11/25 08:17 04/11/25 03:53 Range/Units Whole Blood Glucose 105 # 70-110 MG/DL Sodium Level 130 L 136-145 mmol/L Potassium Level 4.0 3.5-5.1 mmol/L Chloride Level 98 L 101-111 mmol/L Carbon Dioxide Level 28 21-32 mmol/L Blood Urea Nitrogen 16 7-18 mg/dL Creatinine 0.3 L 0.5-1.3 mg/dL Glomerular Filtration Rate Calc 140 >90 mL/min Random Glucose 73 70-105 mg/dL Lactic Acid Level 0.9 0.8-2.5 mmol/L Total Calcium 8.7 8.5-10.1 mg/dL Magnesium Level 1.90 1.80-2.40 mg/dL Total Bilirubin 2.2 #H 0.2-1.0 mg/dL Aspartate Amino Transf (AST/SGOT) 18 10-37 U/L Alanine Aminotransferase (ALT/SGPT) 51 12-78 U/L Alkaline Phosphatase 79 50-136 U/L Total Protein 4.8 L 6.0-8.3 g/dL Albumin 2.0 L 3.5-5.0 g/dL Triglycerides Level 32 30-200 mg/dL Cholesterol Level 69 # <200 mg/dL LDL Cholesterol 41 0-99 mg/dL HDL Cholesterol 28 L 29-71 mg/dL DIAGNOSTICS / RADIOLOGY RESULTS: [ ] PLAN NEURO: Minimize central acting medications as possible. Maintain fall precautions, adequate lighting during the day PULMONARY: Supplemental 02 as needed. Maintain aspiration precautions at all times CARDIOVASCULAR: Follow hemodynamics. Vital signs per facility protocol GI & NUTRITION: Continue with nutritional support. Continue stool softeners and laxatives as needed. KIDNEYS & ELECTROLYTES: Strict monitoring of intake, output and overall fluid balance. Avoid nephrotoxic medications to the extent possible. Medications to be dosed according to renal function. Monitor electrolytes and replace as needed ENDOCRINE: Maintain blood glucose between 100-180 at all times. Hypoglycemia protocol in place INFECTIOUS DISEASE: Trend temperature, WBC and procalcitonin level Follow cultures, deescalate antibiotics as soon as possible. Panculture if new onset fever ONCOLOGY/HEMATOLOGY/COAGULATION: Monitor for s/s of bleeding Monitor hemoglobin, coagulation studies as needed SKIN: Pressure ulcer prevention per facility protocol Specialty mattress ORTHO/REHAB: Continue PT/OT Prophylaxis: Continue GI and DVT prophylaxis Code Status: Full Resuscitation Disposition: Per primary team YAW GLEASON Apr 11, 2025 12:05
[2025-04-11] MEDS: LACTATED RINGERS 1000ML 1,000 ML IV SCH (13:05)
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
--- NOTE | 2025-04-11 16:06 | NUR ---
Nutritional f/u Note: Chart, meds, and labs Reviewed. Pt with small bowel obstruction. Diet has not advanced passed clear liquid and TPN. LBM 04/09/25 as per nursing. PO intake 50%, not meeting nutritional needs. TPN meeting 90% of lower end of estimated nutritional energy needs and 100% of protein needs. Abnormal nutrition related labs:na 130, cl 98 Nutrition-related Meds: CLINIMIX 5/15% @80ML/HRN GIR 3.9, Wt status: current wt 51kg previous wt 49kg Recommend: -correct electrolytes as per protocol -Continue CLinimix 5/15% via central line at a rate of 80ml/hr, Include 10ml adult MVI and 3ml trace elements. TPN Provides 288gm dextrose, 96gm protein 1363kcal/day GIR 4.1 -Lipid emulsion x 3 weekly to prevent essential fatty acid deficiency. Hold if triglycerides >400 or active sepsis not controlled. -Ensure clear and prostat jello w/trays. -If GI status allows consider advancement to soft puree diet for increased calorie/protein density -Check Lipid Panel weekly on Mondays -Check HA1C to obtain the three-month average of blood sugar. -Check folate, iron, vit b12, and Vit D levels to rule out deficiencies. Per research low vitamin D may contribute to insulin resistance -RD to provide further recommendations based on clinical progress. -Monitor feeding tolerance, %, wt, and labs -If No BM >3days consider bowel stimulant. - Please notify RD if additional nutrition concerns arise. Addendum: 04/11/25 at [address] Amended: Links added.
[2025-04-11] MEDS: CLINIMIX E IV ONE (17:50)
[2025-04-11] MEDS: MULTITRACE IV ONE (17:50)
[2025-04-11] MEDS: [UNRECOGNIZED DRUG - OTHER] IV ONE (17:50)
[2025-04-12] VITALS (7 sets, daily range): BP systolic 92–108; BP diastolic 63–78; PULSE 74–88; RESP 16–18; TEMP 97.6–98.6; O2SAT 98
[2025-04-12 04:06] LABS: IMMATURE GRANULOCYTE ABSOLUTE 0.02 K/uL (0-1); NUCLEATED RED BLOOD CELLS 0.0 % (0.0-0.19); PLATELET COUNT (AUTO) 178 K/uL (130-400); RED BLOOD CELL COUNT(AUTO) 2.72 MIL/uL (4.50-6.20); RED CELL DISTRIBUTION WIDTH 12.9 % (11.0-15.5); WHITE BLOOD COUNT (AUTO) 3.9 K/uL (4.8-10.8)
[2025-04-12 04:24] LABS: ASPARTATE AMINOTRANSFERASE 14.0 U/L (10-37); CREATININE 0.2 mg/dL (0.5-1.3); GLOMERULAR FILTR. RATE CALC 158.0 mL/min (>90); GLUCOSE,RANDOM 115.0 mg/dL (70-105); SODIUM SERUM 131.0 mmol/L (136-145); TOTAL PROTEIN, SERUM 4.3 g/dL (6.0-8.3); UREA NITROGEN, BLOOD 19.0 mg/dL (7-18)
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
--- NOTE | 2025-04-12 13:29 | PN ---
GENERAL SURGERY PROGRESS NOTE Date/Time Patient Seen: [04/12/2025 ] Problem List: [Partial bowel obstruction] Interval History: [Patient was evaluated at bedside this morning. Patient's nurse reports that the BP has been soft. He continues on IVF and TPN. Patient reports the pain is well controlled with IV pain medication. Patient is tolerating his clear liquid diet and passing flatus. Pending BM. Urine output is adequate. Patient states only walking from the bed to the chair. He is using his I/S as instructed.] Current Medications Medications (Trade) Dose Ordered Sig/Kenneth Route Start Time Stop Time Status Last Admin Dose Admin Albumin Human 50 ml @ 100 mls/hr Q6H IV 04/08/25 21:30 04/09/25 07:44 DC 04/09/25 03:02 100 MLS/HR Albumin Human 50 ml @ 0 mls/hr TID IV 04/08/25 21:00 04/08/25 21:18 DC 04/08/25 20:41 100 MLS/HR Ceftriaxone Sodium (ROCEphine 1G INJ) 1 gm Q24H IVPB 04/02/25 02:30 04/04/25 14:19 DC 04/04/25 02:18 1 GM Famotidine (Pepcid 20mg Vial) 20 mg DAILY IV 04/02/25 09:00 04/02/25 10:06 DC 04/02/25 07:57 20 MG Fat Emulsion Intravenous 250 ml @ 42 mls/hr DAILY10 IV 04/05/25 10:00 04/11/25 10:21 DC 04/10/25 09:47 42 MLS/HR Furosemide (LASix 40MG VIAL) 40 mg DAILY IV 04/03/25 09:00 04/02/25 10:06 DC Gabapentin (NEURontin 100 mg CAP) 100 mg TID PO 04/11/25 21:00 05/11/25 20:59 04/12/25 08:34 100 MG Insulin Human Regular (humuLIN R 100 UNIT/ML 3ML) INSULIN SLIDING SCAL... Q6H6 SQ 04/05/25 12:00 05/05/25 11:59 04/09/25 18:30 3 UNIT Lactated Ringer's 1,000 ml @ 75 mls/hr [id number] IV 04/02/25 02:30 04/04/25 09:18 DC 04/03/25 04:47 75 MLS/HR Lactated Ringer's 1,000 ml @ 100 mls/hr Q10H IV 04/08/25 21:30 04/09/25 16:56 DC 04/09/25 06:59 100 MLS/HR Lactated Ringer's 1,000 ml @ 125 mls/hr Q8H IV 04/11/25 13:00 05/11/25 12:59 04/12/25 13:07 125 MLS/HR Methocarbamol (methoCARBamol) 500 mg TID PO 04/11/25 21:00 05/11/25 20:59 04/12/25 08:34 500 MG Midodrine (PROAMatine 5 MG TABLET) 10 mg TID PO 04/08/25 21:00 05/08/25 20:59 04/12/25 08:34 10 MG Multivitamins/ Minerals 10 ml/ Folic Acid 1 mg/ Thiamine HCl 100 mg/Sodium Chloride 1,010 ml @ 75 mls/hr DAILY IV 04/03/25 11:30 04/05/25 22:27 DC 04/03/25 13:02 75 MLS/HR Olanzapine (ZyPREXA 5 mg tab) 5 mg HS PO 04/05/25 21:00 04/08/25 11:56 DC 04/07/25 20:46 5 MG Pantoprazole Sodium (PROTonix 40MG INJ) 40 mg DAILY IVP 04/03/25 09:00 04/08/25 12:57 DC 04/08/25 09:22 40 MG Sodium Chloride 500 ml @ 125 mls/hr Q4H IV 04/08/25 16:00 04/08/25 18:07 DC Sodium Chloride 1,000 ml @ 0 mls/hr Q0M IV 04/06/25 17:00 04/06/25 17:59 DC Sodium Chloride 1,000 ml @ 0 mls/hr Q0M IV 04/06/25 18:00 04/06/25 17:16 DC Sodium Chloride 1,000 ml @ 0 mls/hr Q0M IV 04/08/25 16:00 04/08/25 16:59 DC 04/08/25 15:44 500 MLS/HR Sodium Chloride 1,000 ml @ 0 mls/hr Q0M IV 04/08/25 17:00 04/08/25 15:46 DC Physical Examination: Awake, alert, oriented x3 Unlabored breathing Regular rate and rhythm Abdomen soft, incision is clean and dry with bala in place. Ostomy pink with ostomy sweat noted and flatus present. Vital Signs (last 8hr) Date Time Temp Pulse Resp B/P (MAP) Pulse Ox O2 Delivery O2 Flow Rate FiO2 04/12/25 12:00 97.9 82 17 95/73 93 Room Air 04/12/25 08:15 98 Room Air* 0 21 04/12/25 08:00 97.9 86 16 92/68 98 Room Air Laboratory: [ ] Hematology Labs: Test 04/12/25 03:44 Range/Units White Blood Count 3.9 #L 4.8-10.8 K/uL Red Blood Count 2.72 L 4.50-6.20 MIL/uL Hemoglobin 8.2 L 14.0-18.0 g/dL Hematocrit 22.9 L 42-54 % Mean Corpuscular Volume 84.2 79-99 fL Mean Corpuscular Hemoglobin 30.1 27.0-33.0 pg Mean Corpuscular Hemoglobin Concent 35.8 32.0-36.0 g/dL Red Cell Distribution Width 12.9 11.0-15.5 % Platelet Count 178 130-400 K/uL Mean Platelet Volume 9.2 7.5-10.5 fL Immature Granulocyte % (Auto) 0.5 0-1 % Neutrophils (%) (Auto) 80.4 H 40.0-77.0 % Lymphocytes (%) (Auto) 9.0 L 21.0-51.0 % Monocytes (%) (Auto) 9.8 3.0-13.0 % Eosinophils (%) (Auto) 0.0 0.0-8.0 % Basophils (%) (Auto) 0.3 0.0-5.0 % Neutrophils # (Auto) 3.1 1.8-7.7 K/uL Lymphocytes # (Auto) 0.4 L 1.0-4.8 K/uL Monocytes # (Auto) 0.4 0.1-1.0 K/uL Eosinophils # (Auto) 0.00 0.00-0.70 K/uL Basophils # (Auto) 0.01 0.00-0.20 K/uL Absolute Immature Granulocyte (auto 0.02 0-1 K/uL Nucleated Red Blood Cells 0.0 0.0-0.19 % Chemistry Labs: Test 04/12/25 11:52 04/12/25 03:44 04/11/25 12:31 04/11/25 03:53 Range/Units Whole Blood Glucose 97 70-110 MG/DL Sodium Level 131 L 136-145 mmol/L Potassium Level 3.9 3.5-5.1 mmol/L Chloride Level 100 L 101-111 mmol/L Carbon Dioxide Level 29 21-32 mmol/L Blood Urea Nitrogen 19 H 7-18 mg/dL Creatinine 0.2 L 0.5-1.3 mg/dL Glomerular Filtration Rate Calc 158 >90 mL/min Random Glucose 115 #H 70-105 mg/dL Lactic Acid Level 1.1 0.8-2.5 mmol/L Total Calcium 8.2 L 8.5-10.1 mg/dL Magnesium Level 2.00 1.80-2.40 mg/dL Total Bilirubin 2.1 H 0.2-1.0 mg/dL Aspartate Amino Transf (AST/SGOT) 14 10-37 U/L Alanine Aminotransferase (ALT/SGPT) 42 12-78 U/L Alkaline Phosphatase 68 50-136 U/L Total Protein 4.3 L 6.0-8.3 g/dL Albumin 1.6 L 3.5-5.0 g/dL Bedside Glucose Comment Notified Nurse Triglycerides Level 32 30-200 mg/dL Cholesterol Level 69 # <200 mg/dL LDL Cholesterol 41 0-99 mg/dL HDL Cholesterol 28 L 29-71 mg/dL Diagnostics / Radiology: [Copy/Paste Echos/Imaging Report here] Impression and Plan: [Patient is doing well post-surgery. Continue on clears. Continue IVF. Continue to monitor BP. The patient was informed that oral pain medications are available and have been ordered for him. He was advised not to rely solely on IV pain meds. PT/OT. Pulmonary toilet. Will continue to monitor the patient.] Above patient's assessment and plan has been discussed with my attending physician, . PT doing better, Pain controlled. BP is a bit soft after he gets his narcotics. Abd soft, incision C/D/I. Ostomy pink with gas. Will minimize narcotics. Opt for non narcotic pain mgmt. Continue clears for now. Await further bowel function. I personally discussed the pt with my PA and agree with her note above JALYN NEVES Apr 12, 2025 13:29 STANLEY ALLISON MD Apr 12, 2025 19:24
--- NOTE | 2025-04-12 16:16 | NUR ---
DC PLAN CM SPOKE TO PATIENT REGARDING DC PLAN. EXPLAINED THAT MD THINKING PATIENT IS GETTING BETTER. WENT OVER WHAT THE PLAN WOULD BE. SAID THAT HE MADE UP WITH X SPOUSE AND IS OKAY WITH GOING HOME. SAID THAT HE FORGAVE HER AND WILL PLACE CAMERAS AT HOME. CM GAVE INFO TO MARK SINCE HE HAS AN IPAD. SAID NOT SURE IF HE CAN SET UP ASKED CM TO DO IT FOR HIM GAVE EMAIL ADDRESS. CM ALSO EXPLAINED ABOUT MEDICAID AND HEALTH AND HUMAN. EXPLAINED GOALS FOR PATIENT. REDUCE 02 AND WEAN OFF. AMBULATE AND WORK WITH PHYSICAL THERAPY, SET UP MARK AND EDUCATE PATIENT ON COLOTOMY CARE. CM SPOKE TO NURSE OVER GOALS.
--- NOTE | 2025-04-12 17:26 | NUR ---
MEDICATION STOP TELEPHONE ORDER TO STOP DILAUDID PER LEIGHANN GUNDERSON WITH DR. ALLISON.
[2025-04-12] MEDS: MULTITRACE IV ONE (18:52)
[2025-04-12] MEDS: CLINIMIX E IV ONE (18:52)
[2025-04-12] MEDS: [UNRECOGNIZED DRUG - OTHER] IV ONE (18:52)
[2025-04-12] MEDS: HYDROcodone/APAP 5/325 1 TAB TABLET PO ONE (20:17)
[2025-04-13] VITALS (11 sets, daily range): BP systolic 90–113; BP diastolic 65–75; PULSE 65–88; RESP 17–18; TEMP 97.6–98.2; O2SAT 96–100
--- NOTE | 2025-04-13 01:15 | NUR ---
0115 FALL PATIENT WAS EXITING RESTROOM AFTER HE HAD SHOWERED. PRIMARY NURSE JOSÉ AND DIAMOND SIZER FRANK WERE IN ROOM WAITING FOR PATIENT TO FINISH SHOWERING. NURSE HAD GONE TO RETRIEVE WEIGHING SCALE. AT THE SAME TIME, PATIENT HAD FELT DIZZY. DIAMOND SIZER HAD NOTICED HE LOOKED PALE AND WENT BEHIND HIM TO ASSIST HIM. PATIENT HAD FELT FAINT AND DIAMOND SIZER SLOWLY ASSISTED PATIENT TO THE FLOOR. PATIENT REPORTS NO INJURY OR PAIN. NURSE AND DIAMOND SIZER ASSISTED PATIENT TO BED. VS CHECKED 117/65, HR 75, O2 97 ON 2L, RR18, BLOOD SUGAR 109. PHYSICAL ASSESSMENT ON PATIENT SHOWED NO NEW WOUNDS OR BRUISING. NOTIFIED CHARGE NURSE DENICE AND ACCOUNTS PAYABLE CLERK NICKO LUND. NOTIFIED OFFICE MACHINERY OR EQUIPMENT INSTALLER JESSICA PEREZ. ORDERS REVEIVED FOR NEURO CHECKS AND ORTHOSTATIC VS. VS RECHECK 99/64, HR 70. PATIENT PLACED ON [place]. VS BP 114/66 HR 71 02 ON 97 ON 2L, T 98.8, RR 18. Addendum: 04/13/25 at 0228 by JOSÉ CASAREZ LVN LVN PATIENT AAOX4, PUPILS +2, PERRLA. NO INJURY NOTED. NO BRUISING OR NEW OPEN WOUNDS. EDUCATED PT ON IMPORTANCE OF BED ALARM. FALL RISK SIGN ON DOOR, FALL RISK BRACELET IN PLACE, NON SKID SOCKS ON. OFFERED TO TRANSFER PATIENT WITH GAIT BELT. PATIENT REFUSED. DIAMOND SIZER AND NURSE ABLE TO ASSIST PATIENT WALKING SAFELY TO BED.
[2025-04-13 03:54] LABS: IMMATURE GRANULOCYTE ABSOLUTE 0.03 K/uL (0-1); NUCLEATED RED BLOOD CELLS 0.0 % (0.0-0.19); PLATELET COUNT (AUTO) 179 K/uL (130-400); RED BLOOD CELL COUNT(AUTO) 2.73 MIL/uL (4.50-6.20); RED CELL DISTRIBUTION WIDTH 13.1 % (11.0-15.5); WHITE BLOOD COUNT (AUTO) 5.1 K/uL (4.8-10.8)
[2025-04-13 04:07] LABS: ASPARTATE AMINOTRANSFERASE 11.0 U/L (10-37); CREATININE 0.3 mg/dL (0.5-1.3); GLOMERULAR FILTR. RATE CALC 140.0 mL/min (>90); GLUCOSE,RANDOM 100.0 mg/dL (70-105); SODIUM SERUM 131.0 mmol/L (136-145); TOTAL PROTEIN, SERUM 4.4 g/dL (6.0-8.3); UREA NITROGEN, BLOOD 22.0 mg/dL (7-18)
--- NOTE | 2025-04-13 11:41 | NUR ---
DC PLAN TRIED TO SET UP MARK COULD NOT CLICK ON THE OK FOR SUPPLIES. CM WILL TRY AGAIN LATER.
--- NOTE | 2025-04-13 12:01 | PN ---
GENERAL SURGERY PROGRESS NOTE Date/Time Patient Seen: [04/13/2025 ] Problem List: [Partial bowel obstruction] Interval History: [Patient was evaluated at bedside this morning. The nurse reports that the patient's blood pressure has been soft. Dilaudid was discontinued yesterday. The patient experienced an episode of dizziness while walking from the shower towards his bed and was nearly falling, but a skilled nursing facilities professional was able to assist him safely to the floor. The patient currently denies upper or lower extremity pain. He denies chest pain, SOB, nausea, vomiting, or lightheadedness at this time. He reports drainage from his abdominal incision after this event; on examination, the wound appears clean with mild serosanguineous drainage. The patient also reports passing a large amount of gas through his ostomy, and the ostomy bag contains watery, red-tinged output. He is tolerating a clear liquid diet and continues to receive IV fluids and TPN. Per patient, abdominal pain has improved slightly today. Urine output is adequate. The patient states that he has only been walking from the bed to the chair and is using his I/S as instructed.] Current Medications Medications (Trade) Dose Ordered Sig/Kenneth Route Start Time Stop Time Status Last Admin Dose Admin Albumin Human 50 ml @ 100 mls/hr Q6H IV 04/08/25 21:30 04/09/25 07:44 DC 04/09/25 03:02 100 MLS/HR Albumin Human 50 ml @ 0 mls/hr TID IV 04/08/25 21:00 04/08/25 21:18 DC 04/08/25 20:41 100 MLS/HR Ceftriaxone Sodium (ROCEphine 1G INJ) 1 gm Q24H IVPB 04/02/25 02:30 04/04/25 14:19 DC 04/04/25 02:18 1 GM Famotidine (Pepcid 20mg Vial) 20 mg DAILY IV 04/02/25 09:00 04/02/25 10:06 DC 04/02/25 07:57 20 MG Fat Emulsion Intravenous 250 ml @ 42 mls/hr DAILY10 IV 04/05/25 10:00 04/11/25 10:21 DC 04/10/25 09:47 42 MLS/HR Furosemide (LASix 40MG VIAL) 40 mg DAILY IV 04/03/25 09:00 04/02/25 10:06 DC Gabapentin (NEURontin 100 mg CAP) 100 mg TID PO 04/11/25 21:00 05/11/25 20:59 04/13/25 08:53 100 MG Insulin Human Regular (humuLIN R 100 UNIT/ML 3ML) INSULIN SLIDING SCAL... Q6H6 SQ 04/05/25 12:00 05/05/25 11:59 04/09/25 18:30 3 UNIT Lactated Ringer's 1,000 ml @ 75 mls/hr [id number] IV 04/02/25 02:30 04/04/25 09:18 DC 04/03/25 04:47 75 MLS/HR Lactated Ringer's 1,000 ml @ 100 mls/hr Q10H IV 04/08/25 21:30 04/09/25 16:56 DC 04/09/25 06:59 100 MLS/HR Lactated Ringer's 1,000 ml @ 125 mls/hr Q8H IV 04/11/25 13:00 05/11/25 12:59 04/13/25 05:05 125 MLS/HR Methocarbamol (methoCARBamol) 500 mg TID PO 04/11/25 21:00 05/11/25 20:59 04/13/25 08:53 500 MG Midodrine (PROAMatine 5 MG TABLET) 10 mg TID PO 04/08/25 21:00 05/08/25 20:59 04/13/25 08:53 10 MG Multivitamins/ Minerals 10 ml/ Folic Acid 1 mg/ Thiamine HCl 100 mg/Sodium Chloride 1,010 ml @ 75 mls/hr DAILY IV 04/03/25 11:30 04/05/25 22:27 DC 04/03/25 13:02 75 MLS/HR Olanzapine (ZyPREXA 5 mg tab) 5 mg HS PO 04/05/25 21:00 04/08/25 11:56 DC 04/07/25 20:46 5 MG Pantoprazole Sodium (PROTonix 40MG INJ) 40 mg DAILY IVP 04/03/25 09:00 04/08/25 12:57 DC 04/08/25 09:22 40 MG Sodium Chloride 500 ml @ 125 mls/hr Q4H IV 04/08/25 16:00 04/08/25 18:07 DC Sodium Chloride 1,000 ml @ 0 mls/hr Q0M IV 04/06/25 17:00 04/06/25 17:59 DC Sodium Chloride 1,000 ml @ 0 mls/hr Q0M IV 04/06/25 18:00 04/06/25 17:16 DC Sodium Chloride 1,000 ml @ 0 mls/hr Q0M IV 04/08/25 16:00 04/08/25 16:59 DC 04/08/25 15:44 500 MLS/HR Sodium Chloride 1,000 ml @ 0 mls/hr Q0M IV 04/08/25 17:00 04/08/25 15:46 DC Physical Examination: Awake, alert, oriented x3 Unlabored breathing Regular rate and rhythm Abdomen soft, incision is clean with serosanguineous drainage noted. Jaki are in place. Ostomy pink, watery red-tinged output, flatus present. Vital Signs (last 8hr) Date Time Temp Pulse Resp B/P (MAP) Pulse Ox O2 Delivery O2 Flow Rate FiO2 04/13/25 07:56 98.2 69 18 104/69 100 Nasal Cannula 2.0 04/13/25 04:10 88 90/65 04/13/25 04:05 77 98/68 Room Air 04/13/25 04:00 97.5 69 18 95/65 99 Room Air Laboratory: [ ] Hematology Labs: Test 04/13/25 03:44 Range/Units White Blood Count 5.1 # 4.8-10.8 K/uL Red Blood Count 2.73 L 4.50-6.20 MIL/uL Hemoglobin 8.2 L 14.0-18.0 g/dL Hematocrit 23.2 L 42-54 % Mean Corpuscular Volume 85.0 79-99 fL Mean Corpuscular Hemoglobin 30.0 27.0-33.0 pg Mean Corpuscular Hemoglobin Concent 35.3 32.0-36.0 g/dL Red Cell Distribution Width 13.1 11.0-15.5 % Platelet Count 179 130-400 K/uL Mean Platelet Volume 8.9 7.5-10.5 fL Immature Granulocyte % (Auto) 0.6 0-1 % Neutrophils (%) (Auto) 85.9 H 40.0-77.0 % Lymphocytes (%) (Auto) 4.5 L 21.0-51.0 % Monocytes (%) (Auto) 8.8 3.0-13.0 % Eosinophils (%) (Auto) 0.0 0.0-8.0 % Basophils (%) (Auto) 0.2 0.0-5.0 % Neutrophils # (Auto) 4.4 1.8-7.7 K/uL Lymphocytes # (Auto) 0.2 L 1.0-4.8 K/uL Monocytes # (Auto) 0.5 0.1-1.0 K/uL Eosinophils # (Auto) 0.00 0.00-0.70 K/uL Basophils # (Auto) 0.01 0.00-0.20 K/uL Absolute Immature Granulocyte (auto 0.03 0-1 K/uL Nucleated Red Blood Cells 0.0 0.0-0.19 % Chemistry Labs: Test 04/13/25 05:31 04/13/25 03:44 04/11/25 12:31 Range/Units Whole Blood Glucose 110 70-110 MG/DL Sodium Level 131 L 136-145 mmol/L Potassium Level 3.8 3.5-5.1 mmol/L Chloride Level 101 101-111 mmol/L Carbon Dioxide Level 29 21-32 mmol/L Blood Urea Nitrogen 22 H 7-18 mg/dL Creatinine 0.3 L 0.5-1.3 mg/dL Glomerular Filtration Rate Calc 140 >90 mL/min Random Glucose 100 70-105 mg/dL Lactic Acid Level 1.0 0.8-2.5 mmol/L Total Calcium 8.6 8.5-10.1 mg/dL Magnesium Level 2.00 1.80-2.40 mg/dL Total Bilirubin 1.7 H 0.2-1.0 mg/dL Aspartate Amino Transf (AST/SGOT) 11 10-37 U/L Alanine Aminotransferase (ALT/SGPT) 40 12-78 U/L Alkaline Phosphatase 69 50-136 U/L Total Protein 4.4 L 6.0-8.3 g/dL Albumin 1.7 L 3.5-5.0 g/dL Bedside Glucose Comment Notified Nurse Diagnostics / Radiology: [Copy/Paste Echos/Imaging Report here] Impression and Plan: [Patient's condition is guarded. Pain is slightly improving. Nurse was instructed to apply 4x4 gauze to the incision to absorb the drainage. Continue on clears. Continue IVF. Continue to monitor BP. Will order an EKG. Continue with oral pain meds. Monitor I&Os. PT/OT. Pulmonary toilet. Will continue to monitor the patient.] Above patient's assessment and plan has been discussed with my attending physician, . Patient's blood pressure continues to be soft he appears to have some bowel function with both flatus and some liquid output. Patient's urine output is good indicating not dehydrated. An EKG was done that shows normal sinus rhythm with a heart rate in the 60s. Abdomen is soft, there is some serous drainage from the patient's midline incision otherwise clean. This point in time we will defer to the medicine team to further workup the patient's soft blood pressure. We will start the patient on a full liquid diet. He will let. Pulmonary toilet. Discharge planning. I personally discussed the case with my PA and agree with my PA note above. JALYN NEVES PAC Apr 13, 2025 12:01 STANLEY ALLISON MD Apr 13, 2025 18:42
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
--- NOTE | 2025-04-13 18:24 | EKG ---
[facility] Test Date: 2025-04-13 Test Time: 11:57:55 Pat Name: MERVAT SINGH Department: [facility] Room: 412 1 Gender: M [employer]: CHICHI : [id number] Requested By: STANLEY ALLISON Order Number: [id number] Reading MD: Jacquie Bonds Measurements Intervals [place] Rate: 60 P: -3 VT: 144 QRS: 49 QRSD: 102 T: 70 QT: 396 QTc: 396 Interpretive Statements Normal sinus rhythm Low voltage QRS Nonspecific T wave abnormality Compared to ECG 04/01/2025 19:44:50 Low QRS voltage now present T-wave abnormality now present Electronically Signed On 04-14-2025 12:32:37 [employer]PECT[employer] by Jacquie Bonds Please click the below link to view image of tracing.
[2025-04-14] VITALS (11 sets, daily range): BP systolic 79–110; BP diastolic 49–79; PULSE 61–100; RESP 16–20; TEMP 97.9–98.1; O2SAT 98
[2025-04-14 04:36] LABS: NUCLEATED RED BLOOD CELLS 0.0 % (0.0-0.19); PLATELET COUNT (AUTO) 194.0 K/uL (130-400); RED BLOOD CELL COUNT(AUTO) 2.85 MIL/uL (4.50-6.20); RED CELL DISTRIBUTION WIDTH 12.9 % (11.0-15.5); WHITE BLOOD COUNT (AUTO) 3.1 K/uL (4.8-10.8)
[2025-04-14 04:51] LABS: ASPARTATE AMINOTRANSFERASE 14.0 U/L (10-37); CREATININE 0.3 mg/dL (0.5-1.3); GLOMERULAR FILTR. RATE CALC 140.0 mL/min (>90); GLUCOSE,RANDOM 75.0 mg/dL (70-105); SODIUM SERUM 129.0 mmol/L (136-145); TOTAL PROTEIN, SERUM 4.6 g/dL (6.0-8.3); UREA NITROGEN, BLOOD 16.0 mg/dL (7-18)
[2025-04-14] MEDS: 0.9%NACL 1000ML 1,000 ML IV SCH (08:40)
--- NOTE | 2025-04-14 11:00 | NUR ---
Spoke to nurse, Janene, regarding repeat PT order. Patient was assessed 04/13 and was able to walk >200 ft SBA holding onto hand rails. Patient reports he has been doing exercises in his room however this am stated he would rather wait until this afternoon to try and walk. Explained to patient he is able to walk in the hallways as long as he feels up to it (BP not low or feeling dizzy). No change is status from yesterday, patient is clear to walk from PT standpoint.
--- NOTE | 2025-04-14 14:11 | PN ---
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 clinical condition All questions answered time spent: > 35 min WOOD BERGERON MD Apr 14, 2025 14:11
--- NOTE | 2025-04-14 14:20 | PN ---
GENERAL SURGERY PROGRESS NOTE Date/Time Patient Seen: [04/14/2025 ] Problem List: [Partial bowel obstruction] Interval History: [Patient was evaluated at bedside this morning. The nurse reports that the patient's blood pressure has been soft. EKG performed yesterday was normal sinus rhythm with heart rate of 60. Patient reports mild pain to the incision site which is expected. Patient states that the pain is controlled with oral pain meds. Per report, patient had 150 cc of watery brown output from the ostomy during yesterday's day shift. This morning, patient had about 30 cc of brown watery output from the ostomy bag. He is tolerating a full liquid diet and continues to receive IV fluids and TPN. Per report, patient had a p.o. intake of approximately 1200 cc in the last 12 hours. Urine output is adequate.] Current Medications Medications (Trade) Dose Ordered Sig/Kenneth Route Start Time Stop Time Status Last Admin Dose Admin Albumin Human 50 ml @ 100 mls/hr Q6H IV 04/08/25 21:30 04/09/25 07:44 DC 04/09/25 03:02 100 MLS/HR Albumin Human 50 ml @ 0 mls/hr TID IV 04/08/25 21:00 04/08/25 21:18 DC 04/08/25 20:41 100 MLS/HR Ceftriaxone Sodium (ROCEphine 1G INJ) 1 gm Q24H IVPB 04/02/25 02:30 04/04/25 14:19 DC 04/04/25 02:18 1 GM Famotidine (Pepcid 20mg Vial) 20 mg DAILY IV 04/02/25 09:00 04/02/25 10:06 DC 04/02/25 07:57 20 MG Fat Emulsion Intravenous 250 ml @ 42 mls/hr DAILY10 IV 04/05/25 10:00 04/11/25 10:21 DC 04/10/25 09:47 42 MLS/HR Furosemide (LASix 40MG VIAL) 40 mg DAILY IV 04/03/25 09:00 04/02/25 10:06 DC Gabapentin (NEURontin 100 mg CAP) 100 mg TID PO 04/11/25 21:00 05/11/25 20:59 04/14/25 08:41 100 MG Insulin Human Regular (humuLIN R 100 UNIT/ML 3ML) INSULIN SLIDING SCAL... Q6H6 SQ 04/05/25 12:00 05/05/25 11:59 04/09/25 18:30 3 UNIT Lactated Ringer's 1,000 ml @ 50 mls/hr Q20H IV 04/11/25 13:00 04/14/25 08:30 DC 04/14/25 05:55 125 MLS/HR Lactated Ringer's 1,000 ml @ 75 mls/hr [id number] IV 04/02/25 02:30 04/04/25 09:18 DC 04/03/25 04:47 75 MLS/HR Lactated Ringer's 1,000 ml @ 100 mls/hr Q10H IV 04/08/25 21:30 04/09/25 16:56 DC 04/09/25 06:59 100 MLS/HR Methocarbamol (methoCARBamol) 500 mg TID PO 04/11/25 21:00 05/11/25 20:59 04/14/25 08:41 500 MG Midodrine (PROAMatine 5 MG TABLET) 10 mg TID PO 04/08/25 21:00 05/08/25 20:59 04/14/25 08:41 10 MG Multivitamins/ Minerals 10 ml/ Folic Acid 1 mg/ Thiamine HCl 100 mg/Sodium Chloride 1,010 ml @ 75 mls/hr DAILY IV 04/03/25 11:30 04/05/25 22:27 DC 04/03/25 13:02 75 MLS/HR Olanzapine (ZyPREXA 5 mg tab) 5 mg HS PO 04/05/25 21:00 04/08/25 11:56 DC 04/07/25 20:46 5 MG Pantoprazole Sodium (PROTonix 40MG INJ) 40 mg DAILY IVP 04/03/25 09:00 04/08/25 12:57 DC 04/08/25 09:22 40 MG Sodium Chloride 500 ml @ 125 mls/hr Q4H IV 04/08/25 16:00 04/08/25 18:07 DC Sodium Chloride 1,000 ml @ 0 mls/hr Q0M IV 04/06/25 17:00 04/06/25 17:59 DC Sodium Chloride 1,000 ml @ 0 mls/hr Q0M IV 04/06/25 18:00 04/06/25 17:16 DC Sodium Chloride 1,000 ml @ 0 mls/hr Q0M IV 04/08/25 16:00 04/08/25 16:59 DC 04/08/25 15:44 500 MLS/HR Sodium Chloride 1,000 ml @ 0 mls/hr Q0M IV 04/08/25 17:00 04/08/25 15:46 DC Sodium Chloride 1,000 ml @ 75 mls/hr [id number] IV 04/14/25 08:30 05/14/25 08:29 04/14/25 08:40 75 MLS/HR Physical Examination: Awake, alert, oriented x3 Unlabored breathing Regular rate and rhythm Abdomen soft, incision is clean/dry/intact with very minimal serosanguineous drainage noted. Jaki are in place. Ostomy pink, brown watery output, flatus present. Vital Signs (last 8hr) Date Time Temp Pulse Resp B/P (MAP) Pulse Ox O2 Delivery O2 Flow Rate FiO2 04/14/25 12:00 97.9 61 20 96/73 98 Nasal Cannula 2.0 04/14/25 08:15 97.9 78 18 103/67 93 Nasal Cannula 2.0 Laboratory: [ ] Hematology Labs: Test 04/14/25 03:57 04/13/25 03:44 Range/Units White Blood Count 3.1 L 4.8-10.8 K/uL Red Blood Count 2.85 L 4.50-6.20 MIL/uL Hemoglobin 8.5 L 14.0-18.0 g/dL Hematocrit 24.6 L 42-54 % Mean Corpuscular Volume 86.3 79-99 fL Mean Corpuscular Hemoglobin 29.8 27.0-33.0 pg Mean Corpuscular Hemoglobin Concent 34.6 32.0-36.0 g/dL Red Cell Distribution Width 12.9 11.0-15.5 % Platelet Count 194 130-400 K/uL Mean Platelet Volume 9.0 7.5-10.5 fL Nucleated Red Blood Cells 0.0 0.0-0.19 % Immature Granulocyte % (Auto) 0.6 0-1 % Neutrophils (%) (Auto) 85.9 H 40.0-77.0 % Lymphocytes (%) (Auto) 4.5 L 21.0-51.0 % Monocytes (%) (Auto) 8.8 3.0-13.0 % Eosinophils (%) (Auto) 0.0 0.0-8.0 % Basophils (%) (Auto) 0.2 0.0-5.0 % Neutrophils # (Auto) 4.4 1.8-7.7 K/uL Lymphocytes # (Auto) 0.2 L 1.0-4.8 K/uL Monocytes # (Auto) 0.5 0.1-1.0 K/uL Eosinophils # (Auto) 0.00 0.00-0.70 K/uL Basophils # (Auto) 0.01 0.00-0.20 K/uL Absolute Immature Granulocyte (auto 0.03 0-1 K/uL Chemistry Labs: Test 04/14/25 11:58 04/14/25 03:57 04/13/25 03:44 Range/Units Whole Blood Glucose 88 70-110 MG/DL Sodium Level 129 L 136-145 mmol/L Potassium Level 4.1 3.5-5.1 mmol/L Chloride Level 98 L 101-111 mmol/L Carbon Dioxide Level 28 21-32 mmol/L Blood Urea Nitrogen 16 7-18 mg/dL Creatinine 0.3 L 0.5-1.3 mg/dL Glomerular Filtration Rate Calc 140 >90 mL/min Random Glucose 75 70-105 mg/dL Total Calcium 8.5 8.5-10.1 mg/dL Magnesium Level 1.80 1.80-2.40 mg/dL Total Bilirubin 1.4 H 0.2-1.0 mg/dL Aspartate Amino Transf (AST/SGOT) 14 10-37 U/L Alanine Aminotransferase (ALT/SGPT) 37 12-78 U/L Alkaline Phosphatase 86 50-136 U/L Total Protein 4.6 L 6.0-8.3 g/dL Albumin 1.7 L 3.5-5.0 g/dL Lactic Acid Level 1.0 0.8-2.5 mmol/L Diagnostics / Radiology: [Copy/Paste Echos/Imaging Report here] Impression and Plan: [Patient's condition is improving. Abdominal pain has been decreasing. Continue dressing changes. Ostomy nurse will educate patient on ostomy care. Continue on full liquid diet for the next 4 days then advance as tolerated. Continue IVF and TPN for the next 4 days. Will let medicine service manage BP. Continue with oral pain meds. Monitor I&Os. PT/OT. Pulmonary toilet. Patient is to follow-up in our office in 2 weeks.] Above patient's assessment and plan has been discussed with my attending physician, . Patient continues to improve however his blood pressure is still soft. Recommend a full liquid diet to continue. I think patient has antihypertensives should be modulate to increase the blood pressure. Continue TPN for now. I personally discussed the case with my PA and agree with my PA note above. JALYN NEVES PAC Apr 14, 2025 14:20 STANLEY ALLISON MD Apr 17, 2025 13:24
--- NOTE | 2025-04-14 15:15 | NUR ---
Checked on patient this pm and he stated he has been doing his exercises in bed and requested PT return in 1.5 hrs. PT stated we would not be in house by then however explained to patient he is able to walk on his own as long os BP isn't low or he feels dizzy, light headed or otherwise unsafe. He verbalized understanding. Informed Janene nurse.
--- NOTE | 2025-04-14 16:24 | NUR ---
DC PLAN [employer] FORM COMPLETED FOR COLOSTOMY SUPPLIES. SPOKE TO PT SAID PATIENT DOES NOT NEED WALKED OVER 300FT. SAID THE FALL WAS DUE TO THE TIME AND BP NOT WEAKNESS. CM SPOKE TO NURSING TO WORK ON WEANING OFF . PLAN IS FOR HOME. TPN BEING DISCONTINUE AND ADVANCING DIET.
[2025-04-14] MEDS: CLINIMIX-E 5%AA /D15%W 2000ML 2,000 ML IV ONE (18:43)
[2025-04-15] VITALS (9 sets, daily range): BP systolic 94–118; BP diastolic 60–74; PULSE 70–96; RESP 16–18; TEMP 97.4–98.2; O2SAT 96
[2025-04-15 04:58] LABS: NUCLEATED RED BLOOD CELLS 0.0 % (0.0-0.19); PLATELET COUNT (AUTO) 212 K/uL (130-400); RED BLOOD CELL COUNT(AUTO) 2.75 MIL/uL (4.50-6.20); RED CELL DISTRIBUTION WIDTH 13.1 % (11.0-15.5); WHITE BLOOD COUNT (AUTO) 2.9 K/uL (4.8-10.8)
[2025-04-15 05:24] LABS: ASPARTATE AMINOTRANSFERASE 11.0 U/L (10-37); CREATININE 0.3 mg/dL (0.5-1.3); GLOMERULAR FILTR. RATE CALC 140.0 mL/min (>90); GLUCOSE,RANDOM 110.0 mg/dL (70-105); SODIUM SERUM 131.0 mmol/L (136-145); TOTAL PROTEIN, SERUM 4.3 g/dL (6.0-8.3); UREA NITROGEN, BLOOD 15.0 mg/dL (7-18)
[2025-04-15 05:46] LABS: LYMPHOCYTES % (MANUAL) 11 % (22-44); MAN.DIFF COMMENT-IMPRESSION MANUAL DIFFERENTIAL; MONOCYTES % (MANUAL) 7 % (2-9); PLATELET MORPHOLOGY COMMENT ADEQUATE; REACTIVE LYMPHOCYTES 2 % (0-0); SEGMENTED NEUTROPHILS % 80 % (40-70)
--- NOTE | 2025-04-15 11:00 | NUR ---
Spoke to patient and asked if he had been walking. Patient reports no he has not, did not give a reason as to why. Refused to walk this am.
[2025-04-15] MEDS: FAT EMULSIONS 20% 250ML 250 ML IV SCH (11:13)
[2025-04-15] MEDS: PoTASSium chloRIDE 20MEQ ER 20 MEQ ERTAB PO ONE (11:14)
--- NOTE | 2025-04-15 14:35 | PN ---
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 protocol Specialty mattress as needed ORTHO/REHAB Continue PT/OT PRN: MEDICATIONS Tylenol 650 mg po every 4 hrs for fever zofran 4 mg IV every 6 hrs for n/v Hydralazine 5 mg IV every 4 hrs systolic pressure > 160 bowel regiment: lactulose 20 gm PO BID PRN constipation Supportive measures: Continue GI and DVT prophylaxis Disposition: Pending improvement in clinical condition All questions answered time spent: > 35 min WOOD BERGERON MD Apr 15, 2025 14:35
[2025-04-15] MEDS: MAGNESIUM 2GM PREMIX 50ML 50 ML IV SCH (17:36)
--- NOTE | 2025-04-15 17:43 | PN ---
GENERAL SURGERY PROGRESS NOTE Date/Time Patient Seen: [04/15/2025 ] Problem List: [Partial bowel obstruction] Interval History: [Patient was evaluated at the bedside this morning. The nurse reports that the patient's blood pressure has been soft. Patient remains afebrile, WBC 2.9, H&H 8.4 and 24.0. The patient complained of pain at the incision site and noted drainage from the mid-abdominal incision. It was noted that the oral pain medications had not been administered as previously ordered. I had instructed that the pain medications be given every 4 hours in alternating intervals to provide consistent pain control throughout the day. The nose was re-educated on the importance of adhering to the schedule to optimize the patient's pain management. Per report, the patient had approximately 100 cc of semisolid brown output from the ostomy overnight and continues to pass flatus into the ostomy bag. The patient also reported a bowel movement per rectum yesterday and one additional episode today. He is tolerating a full liquid diet, continue to receive IV fluids and TPN, and has adequate urine output. On examination, there was mild swelling noted at the incision site. I used a cotton tip to probe between the jaki. A small area at the inferior aspect of the incision exhibited reddish-brown drainage with a foul odor. The area was gently expressed to evacuate the fluid collection then cleansed with hydrogen peroxide using a cotton tip applicator and dried. A 4 x 4 sterile gauze was placed within the incision to explore further drainage, and a dry gauze dressing was applied over the site. The nurse was instructed to perform this wound care routine 3 times daily and to apply an abdominal binder to help minimize swelling. Patient was encouraged to ambulate as he has just been lying down in bed. He was also encouraged to use his I/S at least 10 times per hour.] Current Medications Medications (Trade) Dose Ordered Sig/Kenneth Route Start Time Stop Time Status Last Admin Dose Admin Albumin Human 50 ml @ 100 mls/hr Q6H IV 04/08/25 21:30 04/09/25 07:44 DC 04/09/25 03:02 100 MLS/HR Albumin Human 50 ml @ 0 mls/hr TID IV 04/08/25 21:00 04/08/25 21:18 DC 04/08/25 20:41 100 MLS/HR Ceftriaxone Sodium (ROCEphine 1G INJ) 1 gm Q24H IVPB 04/02/25 02:30 04/04/25 14:19 DC 04/04/25 02:18 1 GM Famotidine (Pepcid 20mg Vial) 20 mg DAILY IV 04/02/25 09:00 04/02/25 10:06 DC 04/02/25 07:57 20 MG Fat Emulsion Intravenous 250 ml @ 42 mls/hr DAILY10 IV 04/05/25 10:00 04/11/25 10:21 DC 04/10/25 09:47 42 MLS/HR Fat Emulsion Intravenous 250 ml @ 42 mls/hr DAILY10 IV 04/15/25 10:00 05/15/25 09:59 04/15/25 11:13 42 MLS/HR Furosemide (LASix 40MG VIAL) 40 mg DAILY IV 04/03/25 09:00 04/02/25 10:06 DC Gabapentin (NEURontin 100 mg CAP) 100 mg TID PO 04/11/25 21:00 05/11/25 20:59 04/15/25 14:15 100 MG Insulin Human Regular (humuLIN R 100 UNIT/ML 3ML) INSULIN SLIDING SCAL... Q6H6 SQ 04/05/25 12:00 05/05/25 11:59 04/09/25 18:30 3 UNIT Lactated Ringer's 1,000 ml @ 50 mls/hr Q20H IV 04/11/25 13:00 04/14/25 08:30 DC 04/14/25 05:55 125 MLS/HR Lactated Ringer's 1,000 ml @ 75 mls/hr [id number] IV 04/02/25 02:30 04/04/25 09:18 DC 04/03/25 04:47 75 MLS/HR Lactated Ringer's 1,000 ml @ 100 mls/hr Q10H IV 04/08/25 21:30 04/09/25 16:56 DC 04/09/25 06:59 100 MLS/HR Magnesium Sulfate 50 ml @ 0 mls/hr PROTOCOL IV 04/15/25 08:30 05/15/25 08:29 Methocarbamol (methoCARBamol) 500 mg TID PO 04/11/25 21:00 05/11/25 20:59 04/15/25 14:15 500 MG Midodrine (PROAMatine 5 MG TABLET) 10 mg TID PO 04/08/25 21:00 05/08/25 20:59 04/15/25 14:15 10 MG Multivitamins/ Minerals 10 ml/ Folic Acid 1 mg/ Thiamine HCl 100 mg/Sodium Chloride 1,010 ml @ 75 mls/hr DAILY IV 04/03/25 11:30 04/05/25 22:27 DC 04/03/25 13:02 75 MLS/HR Olanzapine (ZyPREXA 5 mg tab) 5 mg HS PO 04/05/25 21:00 04/08/25 11:56 DC 04/07/25 20:46 5 MG Pantoprazole Sodium (PROTonix 40MG INJ) 40 mg DAILY IVP 04/03/25 09:00 04/08/25 12:57 DC 04/08/25 09:22 40 MG Sodium Chloride 500 ml @ 125 mls/hr Q4H IV 04/08/25 16:00 04/08/25 18:07 DC Sodium Chloride 1,000 ml @ 0 mls/hr Q0M IV 04/06/25 17:00 04/06/25 17:59 DC Sodium Chloride 1,000 ml @ 0 mls/hr Q0M IV 04/06/25 18:00 04/06/25 17:16 DC Sodium Chloride 1,000 ml @ 0 mls/hr Q0M IV 04/08/25 16:00 04/08/25 16:59 DC 04/08/25 15:44 500 MLS/HR Sodium Chloride 1,000 ml @ 0 mls/hr Q0M IV 04/08/25 17:00 04/08/25 15:46 DC Sodium Chloride 1,000 ml @ 75 mls/hr [id number] IV 04/14/25 08:30 05/14/25 08:29 04/15/25 14:16 75 MLS/HR Physical Examination: Awake, alert, oriented x3 Unlabored breathing Regular rate and rhythm Abdomen soft with tenderness to palpation on the left side of the incision and mild swelling noted. Reddish-brown, foul-smelling drainage was observed from the inferior aspect of the incision and was cleansed as mentioned above. Jaki remain intact. The ostomy appears pink, with brown semi-solid output and flatus present. Vital Signs (last 8hr) Date Time Temp Pulse Resp B/P (MAP) Pulse Ox O2 Delivery O2 Flow Rate FiO2 04/15/25 12:00 98.2 71 18 94/64 99 Nasal Cannula 2.0 24 Laboratory: [ ] Hematology Labs: Test 04/15/25 04:32 Range/Units White Blood Count 2.9 L 4.8-10.8 K/uL Red Blood Count 2.75 L 4.50-6.20 MIL/uL Hemoglobin 8.4 L 14.0-18.0 g/dL Hematocrit 24.0 L 42-54 % Mean Corpuscular Volume 87.3 79-99 fL Mean Corpuscular Hemoglobin 30.5 27.0-33.0 pg Mean Corpuscular Hemoglobin Concent 35.0 32.0-36.0 g/dL Red Cell Distribution Width 13.1 11.0-15.5 % Platelet Count 212 130-400 K/uL Mean Platelet Volume 8.8 7.5-10.5 fL Segmented Neutrophils % 80 H 40-70 % Lymphocytes % (Manual) 11 L 22-44 % Monocytes % (Manual) 7 2-9 % Nucleated Red Blood Cells 0.0 0.0-0.19 % Differential Comment MANUAL DIFFERENTIAL Reactive Lymphocytes 2 H 0-0 % White Cell Morphology Comment See comments Platelet Morphology Comment ADEQUATE Red Blood Cell Morphology NORMAL Chemistry Labs: Test 04/15/25 15:27 04/15/25 04:32 Range/Units Whole Blood Glucose 127 #H 70-110 MG/DL Sodium Level 131 L 136-145 mmol/L Potassium Level 3.6 3.5-5.1 mmol/L Chloride Level 99 L 101-111 mmol/L Carbon Dioxide Level 26 21-32 mmol/L Blood Urea Nitrogen 15 7-18 mg/dL Creatinine 0.3 L 0.5-1.3 mg/dL Glomerular Filtration Rate Calc 140 >90 mL/min Random Glucose 110 H 70-105 mg/dL Total Calcium 8.4 L 8.5-10.1 mg/dL Magnesium Level 1.70 L 1.80-2.40 mg/dL Total Bilirubin 1.1 H 0.2-1.0 mg/dL Aspartate Amino Transf (AST/SGOT) 11 10-37 U/L Alanine Aminotransferase (ALT/SGPT) 31 12-78 U/L Alkaline Phosphatase 85 50-136 U/L Total Protein 4.3 L 6.0-8.3 g/dL Albumin 1.5 L 3.5-5.0 g/dL Diagnostics / Radiology: [Copy/Paste Echos/Imaging Report here] Impression and Plan: [Patient is stable. He has developed a wound infection, which will be managed with aggressive wound care. The nurse was instructed to perform dressing changes 3 times a day as directed. Hydralazine is to be discontinued. The patient will continue on a full liquid diet, IV fluids, and TPN. Continue current pain management regimen. BP management will be managed by the Medicine Service. Continue monitoring I&Os closely. PT/OT. Pulmonary toilet. The patient will continue to be monitored.] Above patient's assessment and plan has been discussed with my attending physici an, . Patient appears to have developed a wound infection. Ostomy has some output. At this point in time we will treat the patient conservatively. I have instructed the nurses to the drain the wound. Possibly open up some jaki. Continue a dry dressing changes t.i.d.. We will continue to evaluate the patient. JALYN NEVES Apr 15, 2025 17:43 STANLEY ALLISON MD Apr 17, 2025 13:22
--- NOTE | 2025-04-15 18:45 | NUR ---
PATIENT HAD EPISODES OF DRAINAGE,RED SKY COLOR WITH FOUL ODOR , MODERATE AMOUNT IN INCISION AREA , NOTIFIED LEIGHANN BOGGS CAME TO ASSESS AND PROVIDED WOUND CARE AND INSTRUCTION ON CONTINUING WOUND CARE USING HYDROGEN PEROXIDE THE CORK TILE FLOOR LAYER TO AREA , PACK LIGHTLY WITH [id number] TIP GAUZE USING CUTIP AND COVER WITH GAUZES NO TAPE , SECURE WITH ABD BINDER . . WOUND CARE PROVIDED SEVERAL TIMES TODAY
--- NOTE | 2025-04-15 19:30 | NUR ---
assessment/teaching patient awake, alert, ox3, clinimix infusing well to right upper pic line, colostomy draining brown water stool, incision with bala with brown foul smelling drainage noted, cleansed with ns , apply dry 4x4 change tid and prn
[2025-04-15] MEDS: CLINIMIX-E 5%AA /D15%W 2000ML 2,000 ML IV ONE (20:41)
[2025-04-16] VITALS (11 sets, daily range): BP systolic 95–124; BP diastolic 64–79; PULSE 71–95; RESP 16–20; TEMP 97.8–98.3; O2SAT 96
--- NOTE | 2025-04-16 08:08 | PN ---
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 perform this wound care routine 3 times daily and to apply an abdominal binder to help minimize swelling. Patient was encouraged to ambulate as he has just been lying down in bed. He was also encouraged to use his I/S at least 10 times per hour. We will request Infectious Disease consultation. Increase midodrine to 50 mg p.o. t.i.d.. We will order echocardiogram to evaluate ejection fraction. Follow a.m. labs. NEURO: Minimize central acting medications as possible. Fall Precautions. Well lighted room through the day and minimize interruptions through the night to prevent acute delirium. PULMONARY: Supplemental 02 as needed BiPAP as necessary, for respiratory distress Titrate Fio2 to keep Spo2 > or = 90% DuoNebs and CPT as needed IS hourly while awake for pulmonary hygiene prn Out of bed to chair as tolerated Maintain aspiration precautions at all times CARDIOVASCULAR: Follow hemodynamics. Vital signs per facility protocol GI & NUTRITION: Continue nutritional support Aspirations precautions Prokinetic agents and laxatives as needed KIDNEYS & ELECTROLYTES: Strict monitoring of intake and output Daily weights Avoid nephrotoxic agents Monitor electrolytes and replace as needed Goal urine output of 30mL/hr or 0.5mL/kg/hr Medications to be dosed according to renal function. Avoid contrast if possible ENDOCRINE: Maintain blood glucose between 100-180 at all times. Insulin sliding scale for blood glucose management Hypoglycemia and hyperglycemia protocol in place INFECTIOUS DISEASE: Trend temperature, WBC and procalcitonin level Follow cultures, deescalate antibiotics as soon as possible. Panculture if new onset fever HEMATOLOGY & COAGULATION: Monitor H&H. Keep Hgb > 7 Transfuse 1 unit of PRBC for Hgb < 7 Transfuse 1 pack of platelets of platelets < 20, 000 Watch for any signs and symptoms of bleeding SKIN: Pressure ulcer prevention per facility protocol Specialty mattress as needed ORTHO/REHAB Continue PT/OT PRN: MEDICATIONS Tylenol 650 mg po every 4 hrs for fever zofran 4 mg IV every 6 hrs for n/v Hydralazine 5 mg IV every 4 hrs systolic pressure > 160 bowel regiment: lactulose 20 gm PO BID PRN constipation Supportive measures: Continue GI and DVT prophylaxis Disposition: Pending improvement in clinical condition All questions answered time spent: > 35 min WOOD BERGERON MD Apr 16, 2025 08:08
[2025-04-16 09:02] LABS: NUCLEATED RED BLOOD CELLS 0.0 % (0.0-0.19); PLATELET COUNT (AUTO) 213 K/uL (130-400); RED BLOOD CELL COUNT(AUTO) 2.84 MIL/uL (4.50-6.20); RED CELL DISTRIBUTION WIDTH 13.0 % (11.0-15.5); WHITE BLOOD COUNT (AUTO) 2.8 K/uL (4.8-10.8)
[2025-04-16 09:20] LABS: ASPARTATE AMINOTRANSFERASE 12.0 U/L (10-37); CREATININE 0.2 mg/dL (0.5-1.3); GLOMERULAR FILTR. RATE CALC 158.0 mL/min (>90); GLUCOSE,RANDOM 125.0 mg/dL (70-105); SODIUM SERUM 131.0 mmol/L (136-145); TOTAL PROTEIN, SERUM 4.5 g/dL (6.0-8.3); UREA NITROGEN, BLOOD 11.0 mg/dL (7-18)
[2025-04-16 09:59] LABS: BAND NEUTROPHILS % (MANUAL) 39 % (0-2); LYMPHOCYTES % (MANUAL) 10 % (22-44); MONOCYTES % (MANUAL) 11 % (2-9); SEGMENTED NEUTROPHILS % 40 % (40-70)
[2025-04-16 10:00] LABS: MAN.DIFF COMMENT-IMPRESSION MANUAL DIFFERENTIAL; PLATELET MORPHOLOGY COMMENT ADEQUATE; WBC MORPHOLOGY CONSISTENT W/DIFF
--- NOTE | 2025-04-16 11:04 | PN ---
GENERAL SURGERY PROGRESS NOTE Date/Time Patient Seen: [04/16/2025 ] Problem List: [Partial bowel obstruction] Interval History: [Patient was evaluated at the bedside this morning. The nurse reports that the patient's blood pressure has been soft. Patient remains afebrile, WBC 2.8, H&H 8.6 and 24.2. The patient states his abdominal pain has decreased slightly. The only pain medication given overnight was Tramadol. Informed the primary nurse about alternating the oral pain meds every 4 hours, administering each medication separately - not together. The patient was also instructed to call his nurse when it is time for his pain med. Per report, the patient had approximately 100 cc of semisolid brown output from the ostomy overnight and continues to pass flatus into the ostomy bag. The patient also reported three bowel movement per rectum overnight. He is tolerating a full liquid diet, continues to receive IV fluids and TPN, and has adequate urine output. At bedside, I performed the woundcare by cleansing the wound with hydrogen peroxide with a cotton tip. I dried the wound then applied a 4x4 sterile gauze inside the opening in the incision to absorb the drainage. Dry 4x4 sterile gauze was used to cover the incision. An abdominal binder will be applied to support the dressings. He was advised to take daily showers as this will help in keeping the incision clean. Patient was encouraged to ambulate as he has just been lying down in bed. He was also encouraged to use his I/S at least 10 times per hour.] Current Medications Medications (Trade) Dose Ordered Sig/Kenneth Route Start Time Stop Time Status Last Admin Dose Admin Albumin Human 50 ml @ 100 mls/hr Q6H IV 04/08/25 21:30 04/09/25 07:44 DC 04/09/25 03:02 100 MLS/HR Albumin Human 50 ml @ 0 mls/hr TID IV 04/08/25 21:00 04/08/25 21:18 DC 04/08/25 20:41 100 MLS/HR Ceftriaxone Sodium (ROCEphine 1G INJ) 1 gm Q24H IVPB 04/02/25 02:30 04/04/25 14:19 DC 04/04/25 02:18 1 GM Famotidine (Pepcid 20mg Vial) 20 mg DAILY IV 04/02/25 09:00 04/02/25 10:06 DC 04/02/25 07:57 20 MG Fat Emulsion Intravenous 250 ml @ 42 mls/hr DAILY10 IV 04/05/25 10:00 04/11/25 10:21 DC 04/10/25 09:47 42 MLS/HR Fat Emulsion Intravenous 250 ml @ 42 mls/hr DAILY10 IV 04/15/25 10:00 05/15/25 09:59 04/16/25 09:13 42 MLS/HR Furosemide (LASix 40MG VIAL) 40 mg DAILY IV 04/03/25 09:00 04/02/25 10:06 DC Gabapentin (NEURontin 100 mg CAP) 100 mg TID PO 04/11/25 21:00 05/11/25 20:59 04/16/25 09:12 100 MG Insulin Human Regular (humuLIN R 100 UNIT/ML 3ML) INSULIN SLIDING SCAL... Q6H6 SQ 04/05/25 12:00 05/05/25 11:59 04/09/25 18:30 3 UNIT Lactated Ringer's 1,000 ml @ 50 mls/hr Q20H IV 04/11/25 13:00 04/14/25 08:30 DC 04/14/25 05:55 125 MLS/HR Lactated Ringer's 1,000 ml @ 75 mls/hr [id number] IV 04/02/25 02:30 04/04/25 09:18 DC 04/03/25 04:47 75 MLS/HR Lactated Ringer's 1,000 ml @ 100 mls/hr Q10H IV 04/08/25 21:30 04/09/25 16:56 DC 04/09/25 06:59 100 MLS/HR Magnesium Sulfate 50 ml @ 0 mls/hr PROTOCOL IV 04/15/25 08:30 05/15/25 08:29 04/15/25 17:36 25 MLS/HR Methocarbamol (methoCARBamol) 500 mg TID PO 04/11/25 21:00 05/11/25 20:59 04/16/25 09:13 500 MG Midodrine (PROAMatine 5 MG TABLET) 10 mg TID PO 04/08/25 21:00 04/16/25 08:08 DC 04/15/25 20:39 10 MG Midodrine (PROAMatine 5 MG TABLET) 15 mg TID PO 04/16/25 09:00 05/16/25 08:59 04/16/25 09:13 15 MG Multivitamins/ Minerals 10 ml/ Folic Acid 1 mg/ Thiamine HCl 100 mg/Sodium Chloride 1,010 ml @ 75 mls/hr DAILY IV 04/03/25 11:30 04/05/25 22:27 DC 04/03/25 13:02 75 MLS/HR Olanzapine (ZyPREXA 5 mg tab) 5 mg HS PO 04/05/25 21:00 04/08/25 11:56 DC 04/07/25 20:46 5 MG Pantoprazole Sodium (PROTonix 40MG INJ) 40 mg DAILY IVP 04/03/25 09:00 04/08/25 12:57 DC 04/08/25 09:22 40 MG Sodium Chloride 500 ml @ 125 mls/hr Q4H IV 04/08/25 16:00 04/08/25 18:07 DC Sodium Chloride 1,000 ml @ 0 mls/hr Q0M IV 04/06/25 17:00 04/06/25 17:59 DC Sodium Chloride 1,000 ml @ 0 mls/hr Q0M IV 04/06/25 18:00 04/06/25 17:16 DC Sodium Chloride 1,000 ml @ 0 mls/hr Q0M IV 04/08/25 16:00 04/08/25 16:59 DC 04/08/25 15:44 500 MLS/HR Sodium Chloride 1,000 ml @ 0 mls/hr Q0M IV 04/08/25 17:00 04/08/25 15:46 DC Sodium Chloride 1,000 ml @ 75 mls/hr [id number] IV 04/14/25 08:30 05/14/25 08:29 04/15/25 17:30 75 MLS/HR Physical Examination: Awake, alert, oriented x3 Unlabored breathing Regular rate and rhythm _Abdomen soft with mild tenderness to palpation on the left side of the incision. There is reddish-brown, foul-smelling drainage noted at the inferior aspect of the incision which was cleaned as mentioned above. It was observed that the drainage was less than yesterday. [place] remain in place. The ostomy appears pink with brown semi-solid output and flatus present. Vital Signs (last 8hr) Date Time Temp Pulse Resp B/P (MAP) Pulse Ox O2 Delivery O2 Flow Rate FiO2 04/16/25 08:00 98.1 71 16 95/64 99 Room Air 21 04/16/25 07:50 96 Room Air* 0 21 04/16/25 04:10 85 95/66 04/16/25 04:05 87 115/71 96 04/16/25 04:00 98.2 82 18 110/68 100 Nasal Cannula 2.0 Laboratory: [ ] Hematology Labs: Test 04/16/25 08:36 04/15/25 04:32 Range/Units White Blood Count 2.8 L 4.8-10.8 K/uL Red Blood Count 2.84 L 4.50-6.20 MIL/uL Hemoglobin 8.6 L 14.0-18.0 g/dL Hematocrit 24.2 L 42-54 % Mean Corpuscular Volume 85.2 79-99 fL Mean Corpuscular Hemoglobin 30.3 27.0-33.0 pg Mean Corpuscular Hemoglobin Concent 35.5 32.0-36.0 g/dL Red Cell Distribution Width 13.0 11.0-15.5 % Platelet Count 213 130-400 K/uL Mean Platelet Volume 8.7 7.5-10.5 fL Segmented Neutrophils % 40 40-70 % Band Neutrophils % 39 H 0-2 % Lymphocytes % (Manual) 10 L 22-44 % Monocytes % (Manual) 11 H 2-9 % Nucleated Red Blood Cells 0.0 0.0-0.19 % Differential Comment MANUAL DIFFERENTIAL White Cell Morphology Comment CONSISTENT W/DIFF Platelet Morphology Comment ADEQUATE Red Blood Cell Morphology See comments Reactive Lymphocytes 2 H 0-0 % Chemistry Labs: Test 04/16/25 08:36 04/16/25 05:34 Range/Units Sodium Level 131 L 136-145 mmol/L Potassium Level 3.6 3.5-5.1 mmol/L Chloride Level 100 L 101-111 mmol/L Carbon Dioxide Level 28 21-32 mmol/L Blood Urea Nitrogen 11 7-18 mg/dL Creatinine 0.2 L 0.5-1.3 mg/dL Glomerular Filtration Rate Calc 158 >90 mL/min Random Glucose 125 H 70-105 mg/dL Total Calcium 8.4 L 8.5-10.1 mg/dL Magnesium Level 2.00 1.80-2.40 mg/dL Total Bilirubin 0.7 0.2-1.0 mg/dL Aspartate Amino Transf (AST/SGOT) 12 10-37 U/L Alanine Aminotransferase (ALT/SGPT) 28 12-78 U/L Alkaline Phosphatase 94 50-136 U/L Total Protein 4.5 L 6.0-8.3 g/dL Albumin 1.5 L 3.5-5.0 g/dL Whole Blood Glucose 112 H 70-110 MG/DL Diagnostics / Radiology: [Copy/Paste Echos/Imaging Report here] Impression and Plan: [Patient is stable. Continue with the aggressive wound care. Detailed instructions on how to perform the dressing changes were given to the patient's nurse. The patient will be started on a GI soft/bland diet. Continue on IV fluids and TPN. Continue current pain management regimen. BP management will be managed by the Medicine Service. Continue monitoring I&Os closely. PT/OT. Pulmonary toilet. The patient will continue to be monitored.] Above patient's assessment and plan has been discussed with my attending physician, . Patient continues to have some purulent drainage from his midline incision. In the some skin erythema. Does not appear to be any signs of a bowel injury. Patient's ostomy is pink and has positive output. Have asked the nurse to remove a couple of bala to allow for appropriate cleaning of the wound. Continue his diet. Continue wound care. I personally discussed the case with my PA and agree with my PA note above. JALYN NEVES Apr 16, 2025 11:04 STANLEY ALLISON MD Apr 17, 2025 13:23
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
[2025-04-16] MEDS ORDERED: 0.9%NACL 50ML IV SCH (17:00)
[2025-04-16] MEDS: ZOSYN 3.375GM +NS 50ML IVPB SCH (18:03)
--- NOTE | 2025-04-16 20:00 | NUR ---
assessment /dressing change colostomy intact with small amount of brown izabella water stool,abdominal incision with small open wound draining foul smelling, brown iz[place] water drainage, pack small open wound with dry 4x4 , tolerated well
[2025-04-16] MEDS: CLINIMIX-E 5%AA /D15%W 2000ML 2,000 ML IV ONE (21:27)
[2025-04-17] VITALS (8 sets, daily range): BP systolic 107–114; BP diastolic 64–75; PULSE 71–83; RESP 16–20; TEMP 97.5–99.4; O2SAT 96
[2025-04-17 04:51] LABS: NUCLEATED RED BLOOD CELLS 0.0 % (0.0-0.19); PLATELET COUNT (AUTO) 248.0 K/uL (130-400); RED BLOOD CELL COUNT(AUTO) 2.75 MIL/uL (4.50-6.20); RED CELL DISTRIBUTION WIDTH 13.2 % (11.0-15.5); WHITE BLOOD COUNT (AUTO) 2.0 K/uL (4.8-10.8)
[2025-04-17 05:19] LABS: ASPARTATE AMINOTRANSFERASE 11.0 U/L (10-37); CREATININE 0.2 mg/dL (0.5-1.3); GLOMERULAR FILTR. RATE CALC 158.0 mL/min (>90); GLUCOSE,RANDOM 97.0 mg/dL (70-105); SODIUM SERUM 131.0 mmol/L (136-145); TOTAL PROTEIN, SERUM 4.4 g/dL (6.0-8.3); UREA NITROGEN, BLOOD 10.0 mg/dL (7-18)
--- NOTE | 2025-04-17 08:03 | PN ---
GENERAL SURGERY PROGRESS NOTE Date/Time Patient Seen: [04/17/2025 ] Problem List: [Partial bowel obstruction] Interval History: [Patient was evaluated at the bedside this morning. Patient's blood pressure has been stable. Patient remains afebrile, WBC 2.0, H&H 8.1 and 23.3. The patient states his abdominal pain has been decreasing. Patient states the oral pain meds control his pain. Patient was started on IV abx and has been tolerating it. Per report, the patient had approximately 50 cc of semisolid brown output from the ostomy during yesterday dayshift. Per nurse, no documentation for overnight output was noted. Patient continues to pass flatus into the ostomy bag. He is tolerating a GI soft/bland diet, continues to receive IV fluids and TPN, and has adequate urine output. At bedside, I performed the woundcare by cleansing the wound with hydrogen peroxide with a cotton tip. I dried the wound then applied a 4x4 sterile gauze inside the opening in the incision to absorb the drainage. Dry 4x4 sterile gauze was used to cover the incision. An abdominal binder was used to support the dressings. He was advised to take daily showers as this will help in keeping the incision clean. Patient was encouraged to ambulate as he has just been lying down in bed. He was also encouraged to use his I/S at least 10 times per hour.] Current Medications Medications (Trade) Dose Ordered Sig/Kenneth Route Start Time Stop Time Status Last Admin Dose Admin Albumin Human 50 ml @ 100 mls/hr Q6H IV 04/08/25 21:30 04/09/25 07:44 DC 04/09/25 03:02 100 MLS/HR Albumin Human 50 ml @ 0 mls/hr TID IV 04/08/25 21:00 04/08/25 21:18 DC 04/08/25 20:41 100 MLS/HR Ceftriaxone Sodium (ROCEphine 1G INJ) 1 gm Q24H IVPB 04/02/25 02:30 04/04/25 14:19 DC 04/04/25 02:18 1 GM Famotidine (Pepcid 20mg Vial) 20 mg DAILY IV 04/02/25 09:00 04/02/25 10:06 DC 04/02/25 07:57 20 MG Fat Emulsion Intravenous 250 ml @ 42 mls/hr DAILY10 IV 04/05/25 10:00 04/11/25 10:21 DC 04/10/25 09:47 42 MLS/HR Fat Emulsion Intravenous 250 ml @ 42 mls/hr DAILY10 IV 04/15/25 10:00 05/15/25 09:59 04/16/25 09:13 42 MLS/HR Furosemide (LASix 40MG VIAL) 40 mg DAILY IV 04/03/25 09:00 04/02/25 10:06 DC Gabapentin (NEURontin 100 mg CAP) 100 mg TID PO 04/11/25 21:00 05/11/25 20:59 04/16/25 19:57 100 MG Insulin Human Regular (humuLIN R 100 UNIT/ML 3ML) INSULIN SLIDING SCAL... Q6H6 SQ 04/05/25 12:00 05/05/25 11:59 04/09/25 18:30 3 UNIT Lactated Ringer's 1,000 ml @ 50 mls/hr Q20H IV 04/11/25 13:00 04/14/25 08:30 DC 04/14/25 05:55 125 MLS/HR Lactated Ringer's 1,000 ml @ 75 mls/hr [id number] IV 04/02/25 02:30 04/04/25 09:18 DC 04/03/25 04:47 75 MLS/HR Lactated Ringer's 1,000 ml @ 100 mls/hr Q10H IV 04/08/25 21:30 04/09/25 16:56 DC 04/09/25 06:59 100 MLS/HR Magnesium Sulfate 50 ml @ 0 mls/hr PROTOCOL IV 04/15/25 08:30 05/15/25 08:29 04/15/25 17:36 25 MLS/HR Methocarbamol (methoCARBamol) 500 mg TID PO 04/11/25 21:00 05/11/25 20:59 04/16/25 19:57 500 MG Midodrine (PROAMatine 5 MG TABLET) 10 mg TID PO 04/08/25 21:00 04/16/25 08:08 DC 04/15/25 20:39 10 MG Midodrine (PROAMatine 5 MG TABLET) 15 mg TID PO 04/16/25 09:00 05/16/25 08:59 04/16/25 19:57 15 MG Multivitamins/ Minerals 10 ml/ Folic Acid 1 mg/ Thiamine HCl 100 mg/Sodium Chloride 1,010 ml @ 75 mls/hr DAILY IV 04/03/25 11:30 04/05/25 22:27 DC 04/03/25 13:02 75 MLS/HR Olanzapine (ZyPREXA 5 mg tab) 5 mg HS PO 04/05/25 21:00 04/08/25 11:56 DC 04/07/25 20:46 5 MG Pantoprazole Sodium (PROTonix 40MG INJ) 40 mg DAILY IVP 04/03/25 09:00 04/08/25 12:57 DC 04/08/25 09:22 40 MG Piperacillin Sod/ Tazobactam Sod (Zosyn 3.375gm+NS 50ml) 3.375 gm Q8H IVPB 04/16/25 17:00 04/18/25 16:59 04/16/25 23:57 3.375 GM Sodium Chloride 500 ml @ 125 mls/hr Q4H IV 04/08/25 16:00 04/08/25 18:07 DC Sodium Chloride 1,000 ml @ 0 mls/hr Q0M IV 04/06/25 17:00 04/06/25 17:59 DC Sodium Chloride 1,000 ml @ 0 mls/hr Q0M IV 04/06/25 18:00 04/06/25 17:16 DC Sodium Chloride 1,000 ml @ 0 mls/hr Q0M IV 04/08/25 16:00 04/08/25 16:59 DC 04/08/25 15:44 500 MLS/HR Sodium Chloride 1,000 ml @ 0 mls/hr Q0M IV 04/08/25 17:00 04/08/25 15:46 DC Sodium Chloride 1,000 ml @ 75 mls/hr [id number] IV 04/14/25 08:30 05/14/25 08:29 04/17/25 03:43 75 MLS/HR Sodium Chloride (NS 50ml) 50 ml AD IV 04/16/25 17:00 05/16/25 16:59 Physical Examination: Awake, alert, oriented x3 Unlabored breathing Regular rate and rhythm _Abdomen soft with mild tenderness to palpation on the left side of the incision. There is reddish-brown, foul-smelling drainage noted at the inferior aspect of the incision which was cleaned as mentioned above. It was observed that the drainage was less than yesterday. [place] remain in place. The ostomy appears pink with brown semi-solid output and flatus present. Vital Signs (last 8hr) Date Time Temp Pulse Resp B/P (MAP) Pulse Ox O2 Delivery O2 Flow Rate FiO2 04/17/25 04:00 97.5 72 20 107/64 92 Room Air 04/17/25 00:00 98.1 71 20 113/75 97 Nasal Cannula 2.0 Laboratory: [ ] Hematology Labs: Test 04/17/25 04:18 04/16/25 08:36 Range/Units White Blood Count 2.0 #L 4.8-10.8 K/uL Red Blood Count 2.75 L 4.50-6.20 MIL/uL Hemoglobin 8.1 L 14.0-18.0 g/dL Hematocrit 23.3 L 42-54 % Mean Corpuscular Volume 84.7 79-99 fL Mean Corpuscular Hemoglobin 29.5 27.0-33.0 pg Mean Corpuscular Hemoglobin Concent 34.8 32.0-36.0 g/dL Red Cell Distribution Width 13.2 11.0-15.5 % Platelet Count 248 130-400 K/uL Mean Platelet Volume 8.8 7.5-10.5 fL Nucleated Red Blood Cells 0.0 0.0-0.19 % Segmented Neutrophils % 40 40-70 % Band Neutrophils % 39 H 0-2 % Lymphocytes % (Manual) 10 L 22-44 % Monocytes % (Manual) 11 H 2-9 % Differential Comment MANUAL DIFFERENTIAL White Cell Morphology Comment CONSISTENT W/DIFF Platelet Morphology Comment ADEQUATE Red Blood Cell Morphology See comments Chemistry Labs: Test 04/17/25 04:18 04/16/25 19:06 Range/Units Sodium Level 131 L 136-145 mmol/L Potassium Level 4.5 3.5-5.1 mmol/L Chloride Level 100 L 101-111 mmol/L Carbon Dioxide Level 30 21-32 mmol/L Blood Urea Nitrogen 10 7-18 mg/dL Creatinine 0.2 L 0.5-1.3 mg/dL Glomerular Filtration Rate Calc 158 >90 mL/min Random Glucose 97 70-105 mg/dL Total Calcium 8.3 L 8.5-10.1 mg/dL Magnesium Level 1.90 1.80-2.40 mg/dL Total Bilirubin 0.9 # 0.2-1.0 mg/dL Aspartate Amino Transf (AST/SGOT) 11 10-37 U/L Alanine Aminotransferase (ALT/SGPT) 28 12-78 U/L Alkaline Phosphatase 91 50-136 U/L Total Protein 4.4 L 6.0-8.3 g/dL Albumin 1.4 L 3.5-5.0 g/dL Whole Blood Glucose 117 H 70-110 MG/DL Diagnostics / Radiology: [Copy/Paste Echos/Imaging Report here] Impression and Plan: [Patient is stable. Continue with the aggressive wound care. Continue on GI soft/bland diet. Continue on IV fluids and TPN. Continue current pain management regimen. Continue monitoring I&Os closely. PT/OT. Pulmonary toilet. The patient will continue to be monitored.] Above patient's assessment and plan has been discussed with my attending physician, . I personally removed the patient's bala and clean his wound with saline and peroxide. Patient has no signs of bowel injury however does appear to have a wound infection. Patient is midline bala may have to be removed completely. Right now has moved removed about 3 in of the bala. Continue aggressive wound care with peroxide and saline. We will also instruct the nurses change his ostomy bag has his ostomy bag appears to be leaking from its central component into the wound. I personally discussed the case with my PA and agree with my PA note above. JALYN NEVES PAC Apr 17, 2025 08:03 STANLEY ALLISON MD Apr 17, 2025 13:25
--- NOTE | 2025-04-17 09:23 | HMCSR ---
APPROVED REPORT EXAM: Two-dimensional and M-mode echocardiogram with Doppler and color Doppler. Study Details: TDS INDICATION ICD: Evaluate ejection fraction 2D Dimensions IVSd 0.8 (0.7-1.1cm) LVEF(%) 58.2 (>50%) LVED Vol(simp.) 110.0 mL LVDd 4.5 (3.8-5.6cm) FS(%) 31 % LVES Vol(simp.) 48.0 mL PWd 1.0 (0.7-1.1cm) LA (2D) 3.4 (1.6-4.0cm) LVEF(%, simp.) 56 % IVSs 0.9 cm Ao Root(2D) 3.4 (2.0-3.7cm) LVDs 3.2 (2.5-4.0cm) LVOT diam 2.3 (1.8-2.4cm) PWs 1.6 cm M-Mode Dimensions EPSS 0.5 cm LA (MM) 3.6 (1.6-4.0cm) Ao Root(MM) 3.5 (2.0-3.7cm) Aortic Valve AoV Vmax 1.2 m/s Ao Peak GR 6.1 mmHg LVOT Vmax 1.1 m/s AoV VTI 0.2 m Ao Mean GR 3.5 mmHg LVOT VTI 0.18 m HERMAN (VMAX) 3.64 cm2 HERMAN (VTI) 4.0 cm2 Mitral Valve MV E Vmax 62.1 cm/s DECEL Time 113 ms MV A Vmax 54.4 cm/s P 1/2 T 38 ms E/A ratio 1.1 MVA (PHT) 5.7 cm2 Tricuspid Valve TR Vmax 2.4 m/s RAP (EST) 3 mmHg RVSP 26.0 mmHg TR Peak GR 23.0 mmHg Left Ventricle The left ventricle is normal size. There is normal LV segmental wall motion. There is normal left ventricular wall thickness. The LVEF is > 55%. Right Ventricle The right ventricle is normal size. The right ventricular systolic function is normal. Atria The left atrium size is normal. The right atrium size is normal. Chiari network seen in right atrium. Aortic Valve The aortic valve is normal in structure. No aortic regurgitation is present. There is no aortic valvular stenosis. Mitral Valve The mitral valve is normal in structure. There is mild mitral valve regurgitation noted. There is no mitral valve stenosis. Tricuspid Valve The tricuspid valve is normal in structure. There is mild tricuspid valve regurgitation noted. Pulmonic Valve The pulmonary valve is normal in structure. There is no pulmonic valvular regurgitation. Great Vessels The aortic root is normal in size. The IVC is normal in size and collapses >50% with inspiration. Pericardium There is no pericardial effusion. Other Information Quality : Technically difficult challenging study. Conclusion The LVEF is > 55%. There is normal LV segmental wall motion. The aortic root is normal in size. There is no pericardial effusion.
--- NOTE | 2025-04-17 11:45 | PN ---
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 04/09/2025. 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 Aerobic culture Gram-negative rods, identification and sensitivity to follow. Patient evaluated by ID, started on Zosyn IV, pharmacy adjusted to creatinine clearance. Continue local wound care, dressing changes, follow a.m. labs. Continue to follow surgical input and recommendations. Echocardiogram reported as follows: Conclusion The LVEF is > 55%. There is normal LV segmental wall motion. The aortic root is normal in size. There is no pericardial effusion. NEURO: Minimize central acting medications as possible. Fall Precautions. Well lighted room through the day and minimize interruptions through the night to prevent acute delirium. PULMONARY: Supplemental 02 as needed BiPAP as necessary, for respiratory distress Titrate Fio2 to keep Spo2 > or = 90% DuoNebs and CPT as needed IS hourly while awake for pulmonary hygiene prn Out of bed to chair as tolerated Maintain aspiration precautions at all times CARDIOVASCULAR: Follow hemodynamics. Vital signs per facility protocol GI & NUTRITION: Continue nutritional support Aspirations precautions Prokinetic agents and laxatives as needed KIDNEYS & ELECTROLYTES: Strict monitoring of intake and output Daily weights Avoid nephrotoxic agents Monitor electrolytes and replace as needed Goal urine output of 30mL/hr or 0.5mL/kg/hr Medications to be dosed according to renal function. Avoid contrast if possible ENDOCRINE: Maintain blood glucose between 100-180 at all times. Insulin sliding scale for blood glucose management Hypoglycemia and hyperglycemia protocol in place INFECTIOUS DISEASE: Trend temperature, WBC and procalcitonin level Follow cultures, deescalate antibiotics as soon as possible. Panculture if new onset fever HEMATOLOGY & COAGULATION: Monitor H&H. Keep Hgb > 7 Transfuse 1 unit of PRBC for Hgb < 7 Transfuse 1 pack of platelets of platelets < 20, 000 Watch for any signs and symptoms of bleeding SKIN: Pressure ulcer prevention per facility protocol Specialty mattress as needed ORTHO/REHAB Continue PT/OT PRN: MEDICATIONS Tylenol 650 mg po every 4 hrs for fever zofran 4 mg IV every 6 hrs for n/v Hydralazine 5 mg IV every 4 hrs systolic pressure > 160 bowel regiment: lactulose 20 gm PO BID PRN constipation Supportive measures: Continue GI and DVT prophylaxis Disposition: Pending improvement in clinical condition All questions answered time spent: > 35 min WOOD BERGERON MD Apr 17, 2025 11:45
[2025-04-17] MEDS: CLINIMIX-E 5%AA /D15%W 2000ML 2,000 ML IV ONE (22:44)
--- NOTE | 2025-04-17 22:51 | PN ---
INFECTIOUS DISEASE PROGRESS NOTE Date of Service: Apr 17, 2025 SUBJECTIVE: This is a 54-year-old male patient who was seen at bedside in room 412. Patient is awake and stated he is frustrated about the continuous faecal-like drainage from his abdominal incision. Culture was collected from the midline incision on 04/15/2025 and the preliminary report is growing Gram-negative rods. Low-grade fever of 99.3 reported, the WBC level however remains low at 2.0. We will continue on Zosyn IV and follow up on the final culture results. Patient was updated with these findings and plan. PHYSICAL EXAM EYES: Anicteric. Pupils equal and reactive. HENT: No oral thrush seen, moist Oral mucosa. NECK: Supple, no JVD or thyromegaly. LUNGS: Good air entry. No rales, no rhonchi. CARDIOVASCULAR: S1, S2 regular. No murmur heard. ABDOMEN: Soft, non tender, bowel sounds present. Abdominal pain. Right colostomy. Mid abdominal surgical incision with bala. CENTRAL NERVOUS SYSTEM: Awake, alert, oriented x 3. SKIN: No rashes, no swelling. LYMPHATICS: No peripheral lymphadenopathy. MUSCULOSKELETAL: No joint swelling, erythema or tenderness. EXTREMITIES: No cyanosis or clubbing. BACK: No deformity, no pressure ulcer. GENITOURINARY: No dysuria or hematuria. Vital Sign (Last 12 Hours) 04/17/25 04/17/25 04/17/25 04/17/25 11:19 16:32 19:40 20:00 Temp 99.3 99.1 98.2 Pulse 76 79 82 Resp 16 16 19 B/P (MAP) 113/69 109/65 114/73 Pulse Ox 99 96 96 O2 Delivery Nasal Cannula Nasal Cannula Room Air Room Air* O2 Flow Rate 2.0 2.0 0 FiO2 21 21 04/17/25 20:00 Temp 98.1 Pulse 83 Resp 20 B/P (MAP) 112/69 Pulse Ox 98 O2 Delivery Room Air Intake & Output (last 24hrs)0 04/16/25 04/16/25 04/17/25 15:00 23:00 07:00 Intake Total 2850.0 ml 2400.0 ml Output Total 1650 ml 1250 ml Balance 1200.0 ml 1150.0 ml LABS: Laboratory: Test 04/17/25 20:04 04/17/25 04:18 04/16/25 08:36 Range/Units Whole Blood Glucose 120 H 70-110 MG/DL White Blood Count 2.0 #L 4.8-10.8 K/uL Red Blood Count 2.75 L 4.50-6.20 MIL/uL Hemoglobin 8.1 L 14.0-18.0 g/dL Hematocrit 23.3 L 42-54 % Mean Corpuscular Volume 84.7 79-99 fL Mean Corpuscular Hemoglobin 29.5 27.0-33.0 pg Mean Corpuscular Hemoglobin Concent 34.8 32.0-36.0 g/dL Red Cell Distribution Width 13.2 11.0-15.5 % Platelet Count 248 130-400 K/uL Mean Platelet Volume 8.8 7.5-10.5 fL Nucleated Red Blood Cells 0.0 0.0-0.19 % Sodium Level 131 L 136-145 mmol/L Potassium Level 4.5 3.5-5.1 mmol/L Chloride Level 100 L 101-111 mmol/L Carbon Dioxide Level 30 21-32 mmol/L Blood Urea Nitrogen 10 7-18 mg/dL Creatinine 0.2 L 0.5-1.3 mg/dL Glomerular Filtration Rate Calc 158 >90 mL/min Random Glucose 97 70-105 mg/dL Total Calcium 8.3 L 8.5-10.1 mg/dL Magnesium Level 1.90 1.80-2.40 mg/dL Total Bilirubin 0.9 # 0.2-1.0 mg/dL Aspartate Amino Transf (AST/SGOT) 11 10-37 U/L Alanine Aminotransferase (ALT/SGPT) 28 12-78 U/L Alkaline Phosphatase 91 50-136 U/L Total Protein 4.4 L 6.0-8.3 g/dL Albumin 1.4 L 3.5-5.0 g/dL Segmented Neutrophils % 40 40-70 % Band Neutrophils % 39 H 0-2 % Lymphocytes % (Manual) 10 L 22-44 % Monocytes % (Manual) 11 H 2-9 % Differential Comment MANUAL DIFFERENTIAL White Cell Morphology Comment CONSISTENT W/DIFF Platelet Morphology Comment ADEQUATE Red Blood Cell Morphology See comments DIAGNOSTICS / RADIOLOGY: PATIENT: MERVAT SINGH ACCT: [id number] LOC: [facility] U: [id number] AGE/SX: 54/M ROOM: 412 RE04/01/[address]: WOOD BERGERON MD : 1970 BED: 1 DIS: STATUS: ADM IN TLOC: SPEC: [id number] JADA: 04/15/25 STATUS: RES REQ: [id number] RECD: 04/15/[address]: WOOD BERGERON MD SOURCE: ABDOMEN ENTR: 04/15/25-[address]: Edilma PUENTE SPDESC: INCISION STANLEY ALLISON MD, OWEN S MD SELF,REFERRAL TAMARA THORNTON MD ORDERED: AEROBIC CULTURE COMMENTS: Comment: draining midline incision Has specimen been collected/obtained? Y Specimen Comment: already in lab Comment: draining midline incision ABDOMEN/INCISION Has specimen been collected/obtained? Y Specimen Comment: already in lab - Procedure Result Cruz Date-Time AEROBIC CULTURE Preliminary 04/17/25-1016 [facility] DESCRIPTION: REPORT 1: 3+ GRAM NEGATIVE RODS IDENTIFICATION AND SENSITIVITY TO FOLLOW ASSESSMENT: Surgical site infection. Contact Dermatitis. Small-bowel obstruction, s/p exploratory laparotomy and diverting loop colostomy on 04/09/2025. Left pleural effusion. Urinary tract infection, status post treated. PLAN: Continue Zosyn IV. Continue pain management. Colostomy care. Monitor electrolytes. Continue Clinimix. Continue incision care as recommended by General surgery. We will follow up on the final culture results. This case was reviewed and discussed with my supervising physician Dr. Garcia and the above assessment and plan was formulated and agreed upon. ATTESTATION BY PHYSICIAN I have seen and examined the patient. I reviewed the documentation, medical decision making, and treatment plan as noted by the mid-level provider above. I agree with the findings and plan of care. ALISON GARCIA MD, [facility] Apr 17, 2025 22:51
[2025-04-18] VITALS (8 sets, daily range): BP systolic 97–125; BP diastolic 60–74; PULSE 75–83; RESP 16–20; TEMP 98.2–99.8; O2SAT 97
--- NOTE | 2025-04-18 06:58 | PN ---
GENERAL SURGERY PROGRESS NOTE Date/Time Patient Seen: [04/18/2025 ] Problem List: [Partial bowel obstruction] Interval History: [Patient was evaluated at the bedside this morning. No acute overnight events reported by the patient's nurse. Patient's blood pressure has been soft. The patient states his abdominal pain has been decreasing. Patient states his pain is being well-controlled with the current oral pain meds. Patient is tolerating IV abx. Per report, the patient had approximately 80 cc of semisolid brown output from the ostomy during yesterday dayshift. Per nurse, no overnight ostomy output was noted. Patient continues to pass flatus into the ostomy bag. He is tolerating a GI soft/bland diet and continues to receive TPN. Per report, patient has been cooperating with PT. He was also encouraged to use his I/S at least 10 times per hour.] Current Medications Medications (Trade) Dose Ordered Sig/Kenneth Route Start Time Stop Time Status Last Admin Dose Admin Albumin Human 50 ml @ 100 mls/hr Q6H IV 04/08/25 21:30 04/09/25 07:44 DC 04/09/25 03:02 100 MLS/HR Albumin Human 50 ml @ 0 mls/hr TID IV 04/08/25 21:00 04/08/25 21:18 DC 04/08/25 20:41 100 MLS/HR Ceftriaxone Sodium (ROCEphine 1G INJ) 1 gm Q24H IVPB 04/02/25 02:30 04/04/25 14:19 DC 04/04/25 02:18 1 GM Famotidine (Pepcid 20mg Vial) 20 mg DAILY IV 04/02/25 09:00 04/02/25 10:06 DC 04/02/25 07:57 20 MG Fat Emulsion Intravenous 250 ml @ 42 mls/hr DAILY10 IV 04/05/25 10:00 04/11/25 10:21 DC 04/10/25 09:47 42 MLS/HR Fat Emulsion Intravenous 250 ml @ 42 mls/hr DAILY10 IV 04/15/25 10:00 05/15/25 09:59 04/17/25 13:18 42 MLS/HR Furosemide (LASix 40MG VIAL) 40 mg DAILY IV 04/03/25 09:00 04/02/25 10:06 DC Gabapentin (NEURontin 100 mg CAP) 100 mg TID PO 04/11/25 21:00 05/11/25 20:59 04/17/25 20:45 100 MG Insulin Human Regular (humuLIN R 100 UNIT/ML 3ML) INSULIN SLIDING SCAL... Q6H6 SQ 04/05/25 12:00 05/05/25 11:59 04/09/25 18:30 3 UNIT Lactated Ringer's 1,000 ml @ 50 mls/hr Q20H IV 04/11/25 13:00 04/14/25 08:30 DC 04/14/25 05:55 125 MLS/HR Lactated Ringer's 1,000 ml @ 75 mls/hr [id number] IV 04/02/25 02:30 04/04/25 09:18 DC 04/03/25 04:47 75 MLS/HR Lactated Ringer's 1,000 ml @ 100 mls/hr Q10H IV 04/08/25 21:30 04/09/25 16:56 DC 04/09/25 06:59 100 MLS/HR Magnesium Sulfate 50 ml @ 0 mls/hr PROTOCOL IV 04/15/25 08:30 05/15/25 08:29 04/15/25 17:36 25 MLS/HR Methocarbamol (methoCARBamol) 500 mg Q8H6 PO 04/17/25 13:00 05/11/25 20:59 04/18/25 05:10 500 MG Methocarbamol (methoCARBamol) 500 mg TID PO 04/11/25 21:00 04/17/25 07:58 DC 04/16/25 19:57 500 MG Midodrine (PROAMatine 5 MG TABLET) 10 mg TID PO 04/08/25 21:00 04/16/25 08:08 DC 04/15/25 20:39 10 MG Midodrine (PROAMatine 5 MG TABLET) 15 mg TID PO 04/16/25 09:00 05/16/25 08:59 04/17/25 20:45 15 MG Multivitamins/ Minerals 10 ml/ Folic Acid 1 mg/ Thiamine HCl 100 mg/Sodium Chloride 1,010 ml @ 75 mls/hr DAILY IV 04/03/25 11:30 04/05/25 22:27 DC 04/03/25 13:02 75 MLS/HR Olanzapine (ZyPREXA 5 mg tab) 5 mg HS PO 04/05/25 21:00 04/08/25 11:56 DC 04/07/25 20:46 5 MG Pantoprazole Sodium (PROTonix 40MG INJ) 40 mg DAILY IVP 04/03/25 09:00 04/08/25 12:57 DC 04/08/25 09:22 40 MG Piperacillin Sod/ Tazobactam Sod (Zosyn 3.375gm+NS 50ml) 3.375 gm Q8H IVPB 04/16/25 17:00 04/18/25 16:59 04/18/25 00:31 3.375 GM Sodium Chloride 500 ml @ 125 mls/hr Q4H IV 04/08/25 16:00 04/08/25 18:07 DC Sodium Chloride 1,000 ml @ 0 mls/hr Q0M IV 04/06/25 17:00 04/06/25 17:59 DC Sodium Chloride 1,000 ml @ 0 mls/hr Q0M IV 04/06/25 18:00 04/06/25 17:16 DC Sodium Chloride 1,000 ml @ 0 mls/hr Q0M IV 04/08/25 16:00 04/08/25 16:59 DC 04/08/25 15:44 500 MLS/HR Sodium Chloride 1,000 ml @ 0 mls/hr Q0M IV 04/08/25 17:00 04/08/25 15:46 DC Sodium Chloride 1,000 ml @ 75 mls/hr [id number] IV 04/14/25 08:30 04/17/25 16:58 DC 04/17/25 03:43 75 MLS/HR Sodium Chloride (NS 50ml) 50 ml AD IV 04/16/25 17:00 05/16/25 16:59 Physical Examination: Awake, alert, oriented x3 Unlabored breathing Regular rate and rhythm _Abdomen soft with mild tenderness to palpation and erythema noted on the incision. There is reddish-brown, foul-smelling drainage noted at the inferior aspect of the incision which has decreased from yesterday. The remaining bala are in place. The ostomy appears pink with flatus present. Vital Signs (last 8hr) Date Time Temp Pulse Resp B/P (MAP) Pulse Ox O2 Delivery O2 Flow Rate FiO2 04/18/25 04:06 98.8 75 18 97/60 100 Room Air 04/18/25 00:00 98.4 79 20 108/73 98 Room Air Laboratory: [ ] Hematology Labs: Test 04/17/25 04:18 04/16/25 08:36 Range/Units White Blood Count 2.0 #L 4.8-10.8 K/uL Red Blood Count 2.75 L 4.50-6.20 MIL/uL Hemoglobin 8.1 L 14.0-18.0 g/dL Hematocrit 23.3 L 42-54 % Mean Corpuscular Volume 84.7 79-99 fL Mean Corpuscular Hemoglobin 29.5 27.0-33.0 pg Mean Corpuscular Hemoglobin Concent 34.8 32.0-36.0 g/dL Red Cell Distribution Width 13.2 11.0-15.5 % Platelet Count 248 130-400 K/uL Mean Platelet Volume 8.8 7.5-10.5 fL Nucleated Red Blood Cells 0.0 0.0-0.19 % Segmented Neutrophils % 40 40-70 % Band Neutrophils % 39 H 0-2 % Lymphocytes % (Manual) 10 L 22-44 % Monocytes % (Manual) 11 H 2-9 % Differential Comment MANUAL DIFFERENTIAL White Cell Morphology Comment CONSISTENT W/DIFF Platelet Morphology Comment ADEQUATE Red Blood Cell Morphology See comments Chemistry Labs: Test 04/18/25 06:25 04/17/25 04:18 Range/Units Whole Blood Glucose 93 70-110 MG/DL Sodium Level 131 L 136-145 mmol/L Potassium Level 4.5 3.5-5.1 mmol/L Chloride Level 100 L 101-111 mmol/L Carbon Dioxide Level 30 21-32 mmol/L Blood Urea Nitrogen 10 7-18 mg/dL Creatinine 0.2 L 0.5-1.3 mg/dL Glomerular Filtration Rate Calc 158 >90 mL/min Random Glucose 97 70-105 mg/dL Total Calcium 8.3 L 8.5-10.1 mg/dL Magnesium Level 1.90 1.80-2.40 mg/dL Total Bilirubin 0.9 # 0.2-1.0 mg/dL Aspartate Amino Transf (AST/SGOT) 11 10-37 U/L Alanine Aminotransferase (ALT/SGPT) 28 12-78 U/L Alkaline Phosphatase 91 50-136 U/L Total Protein 4.4 L 6.0-8.3 g/dL Albumin 1.4 L 3.5-5.0 g/dL Diagnostics / Radiology: [Copy/Paste Echos/Imaging Report here] Impression and Plan: [Patient is stable. Continue with the aggressive wound care with peroxide and saline. Continue ostomy bag changes. Continue on GI soft/bland diet. Continue on TPN. Continue current pain management regimen. Continue monitoring I&Os closely. PT/OT. Pulmonary toilet. The patient will continue to be monitored.] Above patient's assessment and plan has been discussed with my attending physician, . Patient is tolerating his diet. Dressing changes being done. Per the primary service patient is going to get a unit of blood today. I agree with the plan. Continue aggressive dressing changes to the midline. PT OT. Pulmonary toilet. I personally discussed the case with my PA and agree with my PA note above. JALYN NEVES Apr 18, 2025 06:58 STANLEY ALLISON MD Apr 18, 2025 16:53
[2025-04-18 09:04] LABS: ASPARTATE AMINOTRANSFERASE 13.0 U/L (10-37); CREATININE 0.3 mg/dL (0.5-1.3); GLOMERULAR FILTR. RATE CALC 140.0 mL/min (>90); GLUCOSE,RANDOM 91.0 mg/dL (70-105); SODIUM SERUM 130.0 mmol/L (136-145); TOTAL PROTEIN, SERUM 4.1 g/dL (6.0-8.3); UREA NITROGEN, BLOOD 8.0 mg/dL (7-18)
[2025-04-18 09:30] LABS: IMMATURE GRANULOCYTE ABSOLUTE 0.03 K/uL (0-1); NUCLEATED RED BLOOD CELLS 0.0 % (0.0-0.19); PLATELET COUNT (AUTO) 240 K/uL (130-400); RED BLOOD CELL COUNT(AUTO) 2.32 MIL/uL (4.50-6.20); RED CELL DISTRIBUTION WIDTH 12.9 % (11.0-15.5); WHITE BLOOD COUNT (AUTO) 2.0 K/uL (4.8-10.8)
[2025-04-18 10:51] LABS: IMMATURE GRANULOCYTE ABSOLUTE 0.03 K/uL (0-1); NUCLEATED RED BLOOD CELLS 0.0 % (0.0-0.19); PLATELET COUNT (AUTO) 261 K/uL (130-400); RED BLOOD CELL COUNT(AUTO) 2.70 MIL/uL (4.50-6.20); RED CELL DISTRIBUTION WIDTH 13.0 % (11.0-15.5); WHITE BLOOD COUNT (AUTO) 2.0 K/uL (4.8-10.8)
[2025-04-18 11:09] LABS: CREATININE 0.2 mg/dL (0.5-1.3); GLOMERULAR FILTR. RATE CALC 158.0 mL/min (>90); GLUCOSE,RANDOM 107.0 mg/dL (70-105); SODIUM SERUM 130.0 mmol/L (136-145); UREA NITROGEN, BLOOD 9.0 mg/dL (7-18)
[2025-04-18 11:13] LABS: ASPARTATE AMINOTRANSFERASE 16.0 U/L (10-37); TOTAL PROTEIN, SERUM 4.7 g/dL (6.0-8.3)
--- NOTE | 2025-04-18 14:52 | PN ---
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 ml @ 125 mls/hr Q4H IV 04/08/25 16:00 04/08/25 18:07 DC Sodium Chloride 1,000 ml @ 0 mls/hr Q0M IV 04/06/25 17:00 04/06/25 17:59 DC Sodium Chloride 1,000 ml @ 0 mls/hr Q0M IV 04/06/25 18:00 04/06/25 17:16 DC Sodium Chloride 1,000 ml @ 0 mls/hr Q0M IV 04/08/25 16:00 04/08/25 16:59 DC 04/08/25 15:44 500 MLS/HR Sodium Chloride 1,000 ml @ 0 mls/hr Q0M IV 04/08/25 17:00 04/08/25 15:46 DC Sodium Chloride 1,000 ml @ 75 mls/hr [id number] IV 04/14/25 08:30 04/17/25 16:58 DC 04/17/25 03:43 75 MLS/HR Sodium Chloride (NS 50ml) 50 ml AD IV 04/16/25 17:00 04/18/25 07:28 DC Tramadol HCl (UltRAM) 50 mg Q4H PRN PO MODERATE PAIN (4-6) 04/18/25 10:30 04/18/25 17:59 Tramadol HCl (UltRAM) 50 mg Q4PRN PRN PO MODERATE PAIN (4-6) 04/13/25 18:00 04/18/25 07:29 DC 04/18/25 06:20 50 MG Tramadol HCl (UltRAM) 50 mg Q6H PRN PO MODERATE PAIN (4-6) 04/11/25 18:30 04/13/25 17:47 DC 04/13/25 17:22 50 MG DIAGNOSTICS / RADIOLOGY: [ ] ASSESSMENT: Acute hypotension initial lactic 1.6 has a NG tube likely from volume depletion Small-bowel obstruction, POA s/p exploratory laparotomy diverting loop colostomy on 04/09/2025. 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 Blood pressure 97/74, afebrile, saturating normal on room air. Hemoglobin 8.1, hematocrit 23.1. Sodium level 130, potassium 4.0, magnesium 1.8. Aerobic culture E coli ESBL. We will continue the patient on broad-spectrum IV antibiotics. Continue to follow infectious disease input and recommendations. We will transfuse 1 unit of PRBC. Continue wound care. Continue to follow surgical input and recommendation. Case discussed. Follow a.m. labs. NEURO: Minimize central acting medications as possible. Fall Precautions. Well lighted room through the day and minimize interruptions through the night to prevent acute delirium. PULMONARY: Supplemental 02 as needed BiPAP as necessary, for respiratory distress Titrate Fio2 to keep Spo2 > or = 90% DuoNebs and CPT as needed IS hourly while awake for pulmonary hygiene prn Out of bed to chair as tolerated Maintain aspiration precautions at all times CARDIOVASCULAR: Follow hemodynamics. Vital signs per facility protocol GI & NUTRITION: Continue nutritional support Aspirations precautions Prokinetic agents and laxatives as needed KIDNEYS & ELECTROLYTES: Strict monitoring of intake and output Daily weights Avoid nephrotoxic agents Monitor electrolytes and replace as needed Goal urine output of 30mL/hr or 0.5mL/kg/hr Medications to be dosed according to renal function. Avoid contrast if possible ENDOCRINE: Maintain blood glucose between 100-180 at all times. Insulin sliding scale for blood glucose management Hypoglycemia and hyperglycemia protocol in place INFECTIOUS DISEASE: Trend temperature, WBC and procalcitonin level Follow cultures, deescalate antibiotics as soon as possible. Panculture if new onset fever HEMATOLOGY & COAGULATION: Monitor H&H. Keep Hgb > 7 Transfuse 1 unit of PRBC for Hgb < 7 Transfuse 1 pack of platelets of platelets < 20, 000 Watch for any signs and symptoms of bleeding SKIN: Pressure ulcer prevention per facility protocol Specialty mattress as needed ORTHO/REHAB Continue PT/OT PRN: MEDICATIONS Tylenol 650 mg po every 4 hrs for fever zofran 4 mg IV every 6 hrs for n/v Hydralazine 5 mg IV every 4 hrs systolic pressure > 160 bowel regiment: lactulose 20 gm PO BID PRN constipation Supportive measures: Continue GI and DVT prophylaxis Disposition: Pending improvement in clinical condition All questions answered time spent: > 35 min WOOD BERGERON MD Apr 18, 2025 14:52
--- NOTE | 2025-04-18 15:22 | NUR ---
[facility] Consult: Patient assessed by wound healing team. See wound assessment. Assessment and recommendations provided to primary nurse. Education provided to patient r/t to wound, and pressure ulcer prevention/management.
[2025-04-18] MEDS: BALSAM PERU/CASTOR OIL 60 GM TUBE TP SCH (18:39)
--- NOTE | 2025-04-18 20:26 | PN ---
INFECTIOUS DISEASE PROGRESS NOTE Date of Service: Apr 18, 2025 SUBJECTIVE: This is a 54-year-old male patient who was seen at bedside in room 412. The preliminary abdominal incision cultures is growing ESBL, E coli. We will continue on Zosyn IV. Patient and his ex- present at bedside was updated with these findings. No fever this morning, temperature is 98.6. No nausea or vomiting. We will continue to monitor. PHYSICAL EXAM EYES: Anicteric. Pupils equal and reactive. HENT: No oral thrush seen, moist Oral mucosa. NECK: Supple, no JVD or thyromegaly. LUNGS: Good air entry. No rales, no rhonchi. CARDIOVASCULAR: S1, S2 regular. No murmur heard. ABDOMEN: Soft, non tender, bowel sounds present. Abdominal pain. Right colostomy. Mid abdominal surgical incision with erythema. CENTRAL NERVOUS SYSTEM: Awake, alert, oriented x 3. SKIN: No rashes, no swelling. LYMPHATICS: No peripheral lymphadenopathy. MUSCULOSKELETAL: No joint swelling, erythema or tenderness. EXTREMITIES: No cyanosis or clubbing. BACK: No deformity, no pressure ulcer. GENITOURINARY: No dysuria or hematuria. Vital Sign (Last 12 Hours) 04/18/25 04/18/25 12:09 17:19 Temp 98.6 99.9 Pulse 82 83 Resp 18 16 B/P (MAP) 97/74 115/69 Pulse Ox 98 99 O2 Delivery Room Air Room Air Intake & Output (last 24hrs) 04/17/25 04/17/25 04/18/25 15:00 23:00 07:00 Intake Total 300 ml 2620.0 ml 570.0 ml Output Total 380 ml 200 ml Balance 300 ml 2240.0 ml 370.0 ml LABS: Laboratory: Test 04/18/25 16:24 04/18/25 10:30 04/18/25 08:20 Range/Units Whole Blood Glucose 126 H 70-110 MG/DL White Blood Count 2.0 L 4.8-10.8 K/uL Red Blood Count 2.70 L 4.50-6.20 MIL/uL Hemoglobin 8.1 L 14.0-18.0 g/dL Hematocrit 23.1 #L 42-54 % Mean Corpuscular Volume 85.6 79-99 fL Mean Corpuscular Hemoglobin 30.0 27.0-33.0 pg Mean Corpuscular Hemoglobin Concent 35.1 32.0-36.0 g/dL Red Cell Distribution Width 13.0 11.0-15.5 % Platelet Count 261 130-400 K/uL Mean Platelet Volume 8.5 7.5-10.5 fL Immature Granulocyte % (Auto) 1.5 H 0-1 % Neutrophils (%) (Auto) 64.2 40.0-77.0 % Lymphocytes (%) (Auto) 14.1 L 21.0-51.0 % Monocytes (%) (Auto) 18.7 H 3.0-13.0 % Eosinophils (%) (Auto) 1.0 0.0-8.0 % Basophils (%) (Auto) 0.5 0.0-5.0 % Neutrophils # (Auto) 1.3 L 1.8-7.7 K/uL Lymphocytes # (Auto) 0.3 L 1.0-4.8 K/uL Monocytes # (Auto) 0.4 0.1-1.0 K/uL Eosinophils # (Auto) 0.02 0.00-0.70 K/uL Basophils # (Auto) 0.01 0.00-0.20 K/uL Absolute Immature Granulocyte (auto 0.03 0-1 K/uL Nucleated Red Blood Cells 0.0 0.0-0.19 % Sodium Level 130 L 136-145 mmol/L Potassium Level 4.0 3.5-5.1 mmol/L Chloride Level 96 L 101-111 mmol/L Carbon Dioxide Level 30 21-32 mmol/L Blood Urea Nitrogen 9 7-18 mg/dL Creatinine 0.2 L 0.5-1.3 mg/dL Glomerular Filtration Rate Calc 158 >90 mL/min Random Glucose 107 H 70-105 mg/dL Total Calcium 8.3 L 8.5-10.1 mg/dL Total Bilirubin 0.8 0.2-1.0 mg/dL Aspartate Amino Transf (AST/SGOT) 16 10-37 U/L Alanine Aminotransferase (ALT/SGPT) 31 # 12-78 U/L Alkaline Phosphatase 97 50-136 U/L Total Protein 4.7 L 6.0-8.3 g/dL Albumin 1.6 #L 3.5-5.0 g/dL Magnesium Level 1.80 1.80-2.40 mg/dL Thyroid Stimulating Hormone (TSH) 1.01 0.36-3.74 uIU/mL Free Thyroxine (T4) Direct 1.00 0.76-1.46 ng/dL Free Triiodothyronine (T3) pg/mL 0.70 L 2.18-3.98 pg/mL DIAGNOSTICS / RADIOLOGY: PATIENT: MERVAT SINGH ACCT: [id number] LOC: [facility] U: [id number] AGE/SX: 54/M ROOM: [facility] RE04/01/[address]: WOOD BERGERON MD : 1970 BED: 1 DIS: STATUS: ADM IN TLOC: SPEC: [id number] JADA: 04/15/25 STATUS: RES REQ: [id number] RECD: 04/15/[address]: WOOD BERGERON MD SOURCE: ABDOMEN ENTR: 04/15/25-[address] [facility] [address]: Edilma PUENTE SPDESC: INCISION STANLEY ALLISON MD, OWEN S MD SELF,REFERRAL TAMARA THORNTON MD ORDERED: AEROBIC CULTURE COMMENTS: Comment: draining midline incision Has specimen been collected/obtained? Y Specimen Comment: already in lab Comment: draining midline incision ABDOMEN/INCISION Has specimen been collected/obtained? Y Specimen Comment: already in lab Comment: draining midline incision ABDOMEN/INCISION Has specimen been collected/obtained? Y Specimen Comment: already in lab Comment: draining midline incision ABDOMEN/INCISION Has specimen been collected/obtained? Y Specimen Comment: already in lab Procedure Result Cruz Date-Time AEROBIC CULTURE Preliminary 04/18/25-1036 MRL EXTENDED SPECTRUM BETA-LACTAMASE ORGANISM IDENTIFIED. CRITICAL RESULT WAS CALLED BY EMANUEL NYE ON 04/18/25 AT 0804. CRITICAL VALUES WERE READ BACK AND ACKNOWLEDGED BY SONDRA BUCK ( [facility] ) COLONY DESCRIPTION: REPORT 1: 3+ GRAM NEGATIVE RODS IDENTIFICATION AND SENSITIVITY TO FOLLOW REPORT 2: STUDIES TO CONTINUE COMMENTS(R): ESBL ESCHERICHIA COLI CONTINUED ON NEXT PAGE RUN DATE: 04/18/25 [facility] PAGE 2 RUN TIME: [id number] [place] [address] Department of Laboratories [facility] # [id number] Medical Historian: Jeni Brown DO Specimen Report SPEC: [id number] PATIENT: MERVAT SINGH [id number] (Continued) Procedure Result Cruz Date-Time -- AEROBIC CULTURE Preliminary (continued) 04/18/25-1036 E COLI M.I.C. RX --------- ---- AMPICILLIN >16 R* AZTREONAM >16 ESBL CEFAZOLIN >16 R* CEFTAZIDIME 16 ESBL CEFTAZIDIME/AVIBACTAM <=8 S CEFTRIAXONE >2 ESBL CIPROFLOXACIN 0.5 I GENTAMICIN <=2 S LEVOFLOXACIN 1 I AMPICILLIN/SULBACTAM <=8/4 S MEROPENEM <=1 S PIPERACILLIN/TAZOBACTAM <=8 S TRIMETHOPRIM/SUFLAMETHOXAZOLE <=2/38 S ASSESSMENT: Surgical site wound infection with ESBL E coli. Infection with multidrug resistant organism. Contact Dermatitis. Small-bowel obstruction, s/p exploratory laparotomy and diverting loop colostomy on 04/09/2025. Left pleural effusion. Urinary tract infection, status post treated with ceftriaxone. PLAN: Continue Zosyn IV. Continue pain management. Colostomy care. Monitor electrolytes. Continue Clinimix. Continue incision care as recommended by General surgery. This case was reviewed and discussed with my supervising physician Dr. Garcia and the above assessment and plan was formulated and agreed upon. ATTESTATION BY PHYSICIAN I have seen and examined the patient. I reviewed the documentation, medical decision making, and treatment plan as noted by the mid-level provider above. I agree with the findings and plan of care. ALISON GARCIA MD, [facility] Apr 18, 2025 20:26
[2025-04-18] MEDS: ZOSYN 3.375GM +NS 50ML IVPB SCH (21:35)
[2025-04-18] MEDS: CLINIMIX-E 5%AA /D15%W 2000ML 2,000 ML IV ONE (21:50)
[2025-04-18] MEDS ORDERED: 0.9%NACL 50ML IV SCH (22:00)
[2025-04-19] VITALS (7 sets, daily range): BP systolic 95–129; BP diastolic 64–78; PULSE 63–77; RESP 14–20; TEMP 97.7–98.3; O2SAT 100
[2025-04-19 05:33] LABS: NUCLEATED RED BLOOD CELLS 0.0 % (0.0-0.19); PLATELET COUNT (AUTO) 275.0 K/uL (130-400); RED BLOOD CELL COUNT(AUTO) 3.11 MIL/uL (4.50-6.20); RED CELL DISTRIBUTION WIDTH 12.9 % (11.0-15.5); WHITE BLOOD COUNT (AUTO) 2.0 K/uL (4.8-10.8)
[2025-04-19 10:39] LABS: ASPARTATE AMINOTRANSFERASE 21.0 U/L (10-37); CREATININE 0.2 mg/dL (0.5-1.3); GLOMERULAR FILTR. RATE CALC 158.0 mL/min (>90); GLUCOSE,RANDOM 74.0 mg/dL (70-105); SODIUM SERUM 132.0 mmol/L (136-145); TOTAL PROTEIN, SERUM 4.6 g/dL (6.0-8.3); UREA NITROGEN, BLOOD 11.0 mg/dL (7-18)
--- NOTE | 2025-04-19 10:43 | PN ---
GENERAL SURGERY PROGRESS NOTE Date/Time Patient Seen: [04/19/2025 ] Problem List: [Partial bowel obstruction] Interval History: [Patient was evaluated at the bedside this morning. No acute overnight events reported by the patient's nurse. Nurse reports that the patient received 1 unit of PRBCs yesterday after his Hgb was a 7.0. On laboratory review, patient has a WBC 2.0, H&H 9.3 and 27.1. Patient's blood pressure has been stable The patient states his abdominal pain has been well-controlled with the current oral pain meds. Patient is tolerating IV abx. Per report, the patient had approximately 10 cc of watery brown output from the ostomy overnight. Patient continues to pass flatus into the ostomy bag. He is tolerating a GI soft/bland diet and continues to receive TPN. Dressing change was made at bedside and it was noted that wound looks clean and the purulent drainage has decreased as compared to yesterday.] Current Medications Medications (Trade) Dose Ordered Sig/Kenneth Route Start Time Stop Time Status Last Admin Dose Admin Albumin Human 50 ml @ 100 mls/hr Q6H IV 04/08/25 21:30 04/09/25 07:44 DC 04/09/25 03:02 100 MLS/HR Albumin Human 50 ml @ 0 mls/hr TID IV 04/08/25 21:00 04/08/25 21:18 DC 04/08/25 20:41 100 MLS/HR Ceftriaxone Sodium (ROCEphine 1G INJ) 1 gm Q24H IVPB 04/02/25 02:30 04/04/25 14:19 DC 04/04/25 02:18 1 GM Famotidine (Pepcid 20mg Vial) 20 mg DAILY IV 04/02/25 09:00 04/02/25 10:06 DC 04/02/25 07:57 20 MG Fat Emulsion Intravenous 250 ml @ 42 mls/hr DAILY10 IV 04/05/25 10:00 04/11/25 10:21 DC 04/10/25 09:47 42 MLS/HR Fat Emulsion Intravenous 250 ml @ 42 mls/hr DAILY10 IV 04/15/25 10:00 05/15/25 09:59 04/18/25 08:58 42 MLS/HR Furosemide (LASix 40MG VIAL) 40 mg DAILY IV 04/03/25 09:00 04/02/25 10:06 DC Gabapentin (NEURontin 100 mg CAP) 100 mg TID PO 04/11/25 21:00 05/11/25 20:59 04/18/25 20:54 100 MG Insulin Human Regular (humuLIN R 100 UNIT/ML 3ML) INSULIN SLIDING SCAL... Q6H6 SQ 04/05/25 12:00 05/05/25 11:59 04/09/25 18:30 3 UNIT Lactated Ringer's 1,000 ml @ 50 mls/hr Q20H IV 04/11/25 13:00 04/14/25 08:30 DC 04/14/25 05:55 125 MLS/HR Lactated Ringer's 1,000 ml @ 75 mls/hr [id number] IV 04/02/25 02:30 04/04/25 09:18 DC 04/03/25 04:47 75 MLS/HR Lactated Ringer's 1,000 ml @ 100 mls/hr Q10H IV 04/08/25 21:30 04/09/25 16:56 DC 04/09/25 06:59 100 MLS/HR Magnesium Sulfate 50 ml @ 0 mls/hr PROTOCOL IV 04/15/25 08:30 05/15/25 08:29 04/19/25 02:12 25 MLS/HR Methocarbamol (methoCARBamol) 500 mg Q8H6 PO 04/17/25 13:00 05/11/25 20:59 04/19/25 05:49 500 MG Methocarbamol (methoCARBamol) 500 mg TID PO 04/11/25 21:00 04/17/25 07:58 DC 04/16/25 19:57 500 MG Midodrine (PROAMatine 5 MG TABLET) 10 mg TID PO 04/08/25 21:00 04/16/25 08:08 DC 04/15/25 20:39 10 MG Midodrine (PROAMatine 5 MG TABLET) 15 mg TID PO 04/16/25 09:00 05/16/25 08:59 04/18/25 20:55 15 MG Multivitamins/ Minerals 10 ml/ Folic Acid 1 mg/ Thiamine HCl 100 mg/Sodium Chloride 1,010 ml @ 75 mls/hr DAILY IV 04/03/25 11:30 04/05/25 22:27 DC 04/03/25 13:02 75 MLS/HR Olanzapine (ZyPREXA 5 mg tab) 5 mg HS PO 04/05/25 21:00 04/08/25 11:56 DC 04/07/25 20:46 5 MG Pantoprazole Sodium (PROTonix 40MG INJ) 40 mg BID IVP 04/18/25 21:00 05/18/25 20:59 04/18/25 20:55 40 MG Pantoprazole Sodium (PROTonix 40MG INJ) 40 mg DAILY IVP 04/03/25 09:00 04/08/25 12:57 DC 04/08/25 09:22 40 MG Piperacillin Sod/ Tazobactam Sod (Zosyn 3.375gm+NS 50ml) 3.375 gm Q8H IVPB 04/18/25 20:30 04/28/25 20:29 04/19/25 04:26 3.375 GM Piperacillin Sod/ Tazobactam Sod (Zosyn 3.375gm+NS 50ml) 3.375 gm Q8H IVPB 04/16/25 17:00 04/18/25 16:59 DC 04/18/25 08:56 3.375 GM Sodium Chloride 500 ml @ 125 mls/hr Q4H IV 04/08/25 16:00 04/08/25 18:07 DC Sodium Chloride 1,000 ml @ 0 mls/hr Q0M IV 04/06/25 17:00 04/06/25 17:59 DC Sodium Chloride 1,000 ml @ 0 mls/hr Q0M IV 04/06/25 18:00 04/06/25 17:16 DC Sodium Chloride 1,000 ml @ 0 mls/hr Q0M IV 04/08/25 16:00 04/08/25 16:59 DC 04/08/25 15:44 500 MLS/HR Sodium Chloride 1,000 ml @ 0 mls/hr Q0M IV 04/08/25 17:00 04/08/25 15:46 DC Sodium Chloride 1,000 ml @ 75 mls/hr [id number] IV 04/14/25 08:30 04/17/25 16:58 DC 04/17/25 03:43 75 MLS/HR Sodium Chloride (NS 50ml) 50 ml AD IV 04/18/25 22:00 04/19/25 07:30 DC Sodium Chloride (NS 50ml) 50 ml AD IV 04/16/25 17:00 04/18/25 07:28 DC Wound Care/ Dressing Products (Venelex Ointment) 1 gm DAILY18 TP 04/18/25 18:00 04/19/25 07:29 DC 04/18/25 18:39 1 GM Wound Care/ Dressing Products (Venelex Ointment) apply to sacrum DAILY18 TP 04/19/25 18:00 05/18/25 17:59 Physical Examination: Awake, alert, oriented x3 Unlabored breathing Regular rate and rhythm _Abdomen soft with mild tenderness to palpation on the incision. The erythema has decreased. The purulent drainage has decreased as compared to yesterday. The remaining bala are in place. The ostomy appears pink with flatus present. Vital Signs (last 8hr) Date Time Temp Pulse Resp B/P (MAP) Pulse Ox O2 Delivery O2 Flow Rate FiO2 04/19/25 08:00 98.1 69 14 95/65 100 Room Air 04/19/25 04:00 97.9 63 20 121/72 97 Room Air Laboratory: [ ] Hematology Labs: Test 04/19/25 04:48 04/18/25 10:30 Range/Units White Blood Count 2.0 L 4.8-10.8 K/uL Red Blood Count 3.11 L 4.50-6.20 MIL/uL Hemoglobin 9.3 L 14.0-18.0 g/dL Hematocrit 27.1 L 42-54 % Mean Corpuscular Volume 87.1 79-99 fL Mean Corpuscular Hemoglobin 29.9 27.0-33.0 pg Mean Corpuscular Hemoglobin Concent 34.3 32.0-36.0 g/dL Red Cell Distribution Width 12.9 11.0-15.5 % Platelet Count 275 130-400 K/uL Mean Platelet Volume 8.6 7.5-10.5 fL Nucleated Red Blood Cells 0.0 0.0-0.19 % Immature Granulocyte % (Auto) 1.5 H 0-1 % Neutrophils (%) (Auto) 64.2 40.0-77.0 % Lymphocytes (%) (Auto) 14.1 L 21.0-51.0 % Monocytes (%) (Auto) 18.7 H 3.0-13.0 % Eosinophils (%) (Auto) 1.0 0.0-8.0 % Basophils (%) (Auto) 0.5 0.0-5.0 % Neutrophils # (Auto) 1.3 L 1.8-7.7 K/uL Lymphocytes # (Auto) 0.3 L 1.0-4.8 K/uL Monocytes # (Auto) 0.4 0.1-1.0 K/uL Eosinophils # (Auto) 0.02 0.00-0.70 K/uL Basophils # (Auto) 0.01 0.00-0.20 K/uL Absolute Immature Granulocyte (auto 0.03 0-1 K/uL Chemistry Labs: Test 04/19/25 05:32 04/19/25 04:48 04/18/25 10:30 04/18/25 08:20 Range/Units Whole Blood Glucose 127 H 70-110 MG/DL Magnesium Level 2.30 1.80-2.40 mg/dL Sodium Level 130 L 136-145 mmol/L Potassium Level 4.0 3.5-5.1 mmol/L Chloride Level 96 L 101-111 mmol/L Carbon Dioxide Level 30 21-32 mmol/L Blood Urea Nitrogen 9 7-18 mg/dL Creatinine 0.2 L 0.5-1.3 mg/dL Glomerular Filtration Rate Calc 158 >90 mL/min Random Glucose 107 H 70-105 mg/dL Total Calcium 8.3 L 8.5-10.1 mg/dL Total Bilirubin 0.8 0.2-1.0 mg/dL Aspartate Amino Transf (AST/SGOT) 16 10-37 U/L Alanine Aminotransferase (ALT/SGPT) 31 # 12-78 U/L Alkaline Phosphatase 97 50-136 U/L Total Protein 4.7 L 6.0-8.3 g/dL Albumin 1.6 #L 3.5-5.0 g/dL Serum Osmolality 272 L 278-305 mOsm/kg Thyroid Stimulating Hormone (TSH) 1.01 0.36-3.74 uIU/mL Free Thyroxine (T4) Direct 1.00 0.76-1.46 ng/dL Free Triiodothyronine (T3) pg/mL 0.70 L 2.18-3.98 pg/mL Diagnostics / Radiology: [Copy/Paste Echos/Imaging Report here] Impression and Plan: [Patient is stable. Continue with the aggressive wound care with peroxide and saline. Continue ostomy bag changes. Continue on GI soft/bland diet. Continue on TPN. Continue current pain management regimen. Continue monitoring I&Os closely. Monitor H&H. PT/OT. Pulmonary toilet. The patient will continue to be monitored.] Above patient's assessment and plan has been discussed with my attending physician, . Patient's condition appears to be improving. Patient's purulent drainage from has been line incision appears to be decreasing. Patient continues to have ostomy function. Patient is tolerating his soft mechanical diet. I think at this point in time we can consider weaning off his TPN. Ambulate. Pulmonary toilet. Continue aggressive wound care for his midline incision. I personally discussed the case with my PA and agree with my PA note above. JALYN NEVES PAC Apr 19, 2025 10:43 STANLEY ALLISON MD Apr 19, 2025 17:50
--- NOTE | 2025-04-19 12:10 | PN ---
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 04/05/25 22:27 DC 04/03/25 13:02 75 MLS/HR Olanzapine (ZyPREXA 5 mg tab) 5 mg HS PO 04/05/25 21:00 04/08/25 11:56 DC 04/07/25 20:46 5 MG Ondansetron HCl (zoFRAN 4MG INJ) 4 mg Q6H PRN IV NAUSEA/VOMITING 04/02/25 02:30 05/02/25 02:29 04/17/25 17:20 4 MG Pantoprazole Sodium (PROTonix 40MG INJ) 40 mg BID IVP 04/18/25 21:00 05/18/25 20:59 04/19/25 11:32 40 MG Pantoprazole Sodium (PROTonix 40MG INJ) 40 mg DAILY IVP 04/03/25 09:00 04/08/25 12:57 DC 04/08/25 09:22 40 MG Piperacillin Sod/ Tazobactam Sod (Zosyn 3.375gm+NS 50ml) 3.375 gm Q8H IVPB 04/18/25 20:30 04/28/25 20:29 04/19/25 11:37 3.375 GM Piperacillin Sod/ Tazobactam Sod (Zosyn 3.375gm+NS 50ml) 3.375 gm Q8H IVPB 04/16/25 17:00 04/18/25 16:59 DC 04/18/25 08:56 3.375 GM Potassium Chloride 100 ml @ 100 mls/hr AD PRN IV POTASSIUM PROTOCOL 04/06/25 06:30 05/06/25 06:29 04/10/25 08:28 100 MLS/HR Potassium Chloride (K-Dur/Klor-Con 20meq) 20 meq AD PRN PO POTASSIUM PROTOCOL 04/06/25 06:30 05/06/25 06:29 04/18/25 09:11 20 MEQ Potassium Chloride (KCl 10% Elixir 20meq/15ml) 20 meq AD PRN PO POTASSIUM PROTOCOL 04/06/25 06:30 05/06/25 06:29 Sodium Chloride 500 ml @ 125 mls/hr Q4H IV 04/08/25 16:00 04/08/25 18:07 DC Sodium Chloride 1,000 ml @ 0 mls/hr Q0M IV 04/06/25 17:00 04/06/25 17:59 DC Sodium Chloride 1,000 ml @ 0 mls/hr Q0M IV 04/06/25 18:00 04/06/25 17:16 DC Sodium Chloride 1,000 ml @ 0 mls/hr Q0M IV 04/08/25 16:00 04/08/25 16:59 DC 04/08/25 15:44 500 MLS/HR Sodium Chloride 1,000 ml @ 0 mls/hr Q0M IV 04/08/25 17:00 04/08/25 15:46 DC Sodium Chloride 1,000 ml @ 75 mls/hr [id number] IV 04/14/25 08:30 04/17/25 16:58 DC 04/17/25 03:43 75 MLS/HR Sodium Chloride (NS 50ml) 50 ml AD IV 04/18/25 22:00 04/19/25 07:30 DC Sodium Chloride (NS 50ml) 50 ml AD IV 04/16/25 17:00 04/18/25 07:28 DC Tramadol HCl (UltRAM) 50 mg Q4H PRN PO MODERATE PAIN (4-6) 04/18/25 10:30 04/18/25 17:59 DC 04/18/25 15:33 50 MG Tramadol HCl (UltRAM) 50 mg Q4PRN PRN PO MODERATE PAIN (4-6) 04/13/25 18:00 04/18/25 07:29 DC 04/18/25 06:20 50 MG Tramadol HCl (UltRAM) 50 mg Q6H PRN PO MODERATE PAIN (4-6) 04/18/25 22:00 04/19/25 07:29 DC 04/19/25 05:18 50 MG Tramadol HCl (UltRAM) 50 mg Q6H PRN PO PAIN LEVEL 4 TO 6 04/19/25 07:30 04/24/25 07:29 04/19/25 11:37 50 MG Tramadol HCl (UltRAM) 50 mg Q6H PRN PO MODERATE PAIN (4-6) 04/11/25 18:30 04/13/25 17:47 DC 04/13/25 17:22 50 MG Wound Care/ Dressing Products (Venelex Ointment) 1 gm DAILY18 TP 04/18/25 18:00 04/19/25 07:29 DC 04/18/25 18:39 1 GM Wound Care/ Dressing Products (Venelex Ointment) apply to sacrum DAILY18 TP 04/19/25 18:00 05/18/25 17:59 DIAGNOSTICS / RADIOLOGY: [ ] ASSESSMENT: Acute hypotension initial lactic 1.6 has a NG tube likely from volume depletion Small-bowel obstruction, POA s/p exploratory laparotomy diverting loop colostomy on 04/09/2025. by dr Mcgrath Surgical site wound infection with Enterococcus albumin E coli ESBL Acute postoperative anemia, status post transfusion of 1 unit of PRBC 04/18/2025 Bilateral pleural effusions, POA Suspected neoplasm of the sigmoid colon, POA Urinary tract infection, POA Severe malnutrition BMI of 17 Uncontrolled diabetes mellitus type 2 with hypoglycemia Chronic obstructive pulmonary disease History of Coronary Artery Disease History of stroke History of hypotension with the hypotensive episodes PLAN: the patient has been seen and examined, discussed with the RN, no acute events overnight, remains admitted to medical floor, alert oriented x3, getting nutritional support via TPN, currently on GI soft diet. Blood pressure 97/74, afebrile, saturating normal on room air. Hemoglobin 8.1, hematocrit 23.1. Sodium level 130, potassium 4.0, magnesium 1.8. Aerobic culture E coli ESBL. We will continue the patient on broad-spectrum IV antibiotics. Continue to follow infectious disease input and recommendations. We will transfuse 1 unit of PRBC. Continue wound care. Continue to follow surgical input and recommendation. Case discussed. Follow a.m. labs. NEURO: Minimize central acting medications as possible. Fall Precautions. Well lighted room through the day and minimize interruptions through the night to prevent acute delirium. PULMONARY: Supplemental 02 as needed BiPAP as necessary, for respiratory distress Titrate Fio2 to keep Spo2 > or = 90% DuoNebs and CPT as needed IS hourly while awake for pulmonary hygiene prn Out of bed to chair as tolerated Maintain aspiration precautions at all times CARDIOVASCULAR: Follow hemodynamics. Vital signs per facility protocol GI & NUTRITION: Continue nutritional support Aspirations precautions Prokinetic agents and laxatives as needed KIDNEYS & ELECTROLYTES: Strict monitoring of intake and output Daily weights Avoid nephrotoxic agents Monitor electrolytes and replace as needed Goal urine output of 30mL/hr or 0.5mL/kg/hr Medications to be dosed according to renal function. Avoid contrast if possible ENDOCRINE: Maintain blood glucose between 100-180 at all times. Insulin sliding scale for blood glucose management Hypoglycemia and hyperglycemia protocol in place INFECTIOUS DISEASE: Trend temperature, WBC and procalcitonin level Follow cultures, deescalate antibiotics as soon as possible. Panculture if new onset fever HEMATOLOGY & COAGULATION: Monitor H&H. Keep Hgb > 7 Transfuse 1 unit of PRBC for Hgb < 7 Transfuse 1 pack of platelets of platelets < 20, 000 Watch for any signs and symptoms of bleeding SKIN: Pressure ulcer prevention per facility protocol Specialty mattress as needed ORTHO/REHAB Continue PT/OT PRN: MEDICATIONS Tylenol 650 mg po every 4 hrs for fever zofran 4 mg IV every 6 hrs for n/v Hydralazine 5 mg IV every 4 hrs systolic pressure > 160 bowel regiment: lactulose 20 gm PO BID PRN constipation Supportive measures: Continue GI and DVT prophylaxis Disposition: Pending improvement in clinical condition All questions answered time spent: > 35 min WOOD BREGERON MD Apr 19, 2025 12:10
[2025-04-19] MEDS ORDERED: ALBUMIN (HUMAN) 5% 250 ML IV SCH (12:30)
--- NOTE | 2025-04-19 19:08 | PN ---
INFECTIOUS DISEASE PROGRESS NOTE Date of Service: Apr 19, 2025 SUBJECTIVE: This is a 54-year-old male patient who was seen at bedside in room 412. The final abdominal incision cultures came back positive for Enterococcus Avium and Ecoli. We will continue on Zosyn IV and continue to monitor. Continue with fecal material-like drainage from the abdominal wound incision. Patient remains afebrile, temperature is 98.2. Patient was transfused 1 unit of PRBC last night for a hemoglobin of 7.0 and current hemoglobin today is 9.3. PHYSICAL EXAM EYES: Anicteric. Pupils equal and reactive. HENT: No oral thrush seen, moist Oral mucosa. NECK: Supple, no JVD or thyromegaly. LUNGS: Good air entry. No rales, no rhonchi. CARDIOVASCULAR: S1, S2 regular. No murmur heard. ABDOMEN: Soft, non tender, bowel sounds present. Abdominal pain. Right colostomy. Mid abdominal surgical incision with erythema. CENTRAL NERVOUS SYSTEM: Awake, alert, oriented x 3. SKIN: No rashes, no swelling. LYMPHATICS: No peripheral lymphadenopathy. MUSCULOSKELETAL: No joint swelling, erythema or tenderness. EXTREMITIES: No cyanosis or clubbing. BACK: No deformity, no pressure ulcer. GENITOURINARY: No dysuria or hematuria. Vital Sign (Last 12 Hours) 04/19/25 04/19/25 08:00 12:35 Temp 98.1 98.2 Pulse 69 76 Resp 14 18 B/P (MAP) 95/65 105/70 Pulse Ox 100 100 O2 Delivery Room Air Room Air Intake & Output (last 24hrs) 04/18/25 04/18/25 04/19/25 15:00 23:00 07:00 Intake Total 900 ml 1725.0 ml 700.0 ml Output Total 1900 ml 1596 ml Balance 900 ml -175.0 ml -896.0 ml LABS: Laboratory: Test 04/19/25 16:56 04/19/25 04:48 04/18/25 20:25 04/18/25 10:30 Range/Units Whole Blood Glucose 119 H 70-110 MG/DL White Blood Count 2.0 L 4.8-10.8 K/uL Red Blood Count 3.11 L 4.50-6.20 MIL/uL Hemoglobin 9.3 L 14.0-18.0 g/dL Hematocrit 27.1 L 42-54 % Mean Corpuscular Volume 87.1 79-99 fL Mean Corpuscular Hemoglobin 29.9 27.0-33.0 pg Mean Corpuscular Hemoglobin Concent 34.3 32.0-36.0 g/dL Red Cell Distribution Width 12.9 11.0-15.5 % Platelet Count 275 130-400 K/uL Mean Platelet Volume 8.6 7.5-10.5 fL Nucleated Red Blood Cells 0.0 0.0-0.19 % Sodium Level 132 L 136-145 mmol/L Potassium Level 4.1 3.5-5.1 mmol/L Chloride Level 98 L 101-111 mmol/L Carbon Dioxide Level 30 21-32 mmol/L Blood Urea Nitrogen 11 7-18 mg/dL Creatinine 0.2 L 0.5-1.3 mg/dL Glomerular Filtration Rate Calc 158 >90 mL/min Random Glucose 74 70-105 mg/dL Total Calcium 8.5 8.5-10.1 mg/dL Magnesium Level 2.30 1.80-2.40 mg/dL Total Bilirubin 1.0 # 0.2-1.0 mg/dL Aspartate Amino Transf (AST/SGOT) 21 10-37 U/L Alanine Aminotransferase (ALT/SGPT) 33 12-78 U/L Alkaline Phosphatase 93 50-136 U/L Total Protein 4.6 L 6.0-8.3 g/dL Albumin 1.5 L 3.5-5.0 g/dL Urine Random Sodium 102 40-220 mmol/l Urine Random Potassium 14 L 25-125 mmol/L Urine Random Chloride 98 L 110-250 mmol/L Immature Granulocyte % (Auto) 1.5 H 0-1 % Neutrophils (%) (Auto) 64.2 40.0-77.0 % Lymphocytes (%) (Auto) 14.1 L 21.0-51.0 % Monocytes (%) (Auto) 18.7 H 3.0-13.0 % Eosinophils (%) (Auto) 1.0 0.0-8.0 % Basophils (%) (Auto) 0.5 0.0-5.0 % Neutrophils # (Auto) 1.3 L 1.8-7.7 K/uL Lymphocytes # (Auto) 0.3 L 1.0-4.8 K/uL Monocytes # (Auto) 0.4 0.1-1.0 K/uL Eosinophils # (Auto) 0.02 0.00-0.70 K/uL Basophils # (Auto) 0.01 0.00-0.20 K/uL Absolute Immature Granulocyte (auto 0.03 0-1 K/uL Test 04/18/25 08:20 Range/Units Serum Osmolality 272 L 278-305 mOsm/kg Thyroid Stimulating Hormone (TSH) 1.01 0.36-3.74 uIU/mL Free Thyroxine (T4) Direct 1.00 0.76-1.46 ng/dL Free Triiodothyronine (T3) pg/mL 0.70 L 2.18-3.98 pg/mL DIAGNOSTICS / RADIOLOGY: PATIENT: MERVAT SINGH ACCT: [id number] LOC: [facility] U: [id number] AGE/SX: 54/M ROOM: [facility] RE04/01/[address]: WODO BERGERON MD : 1970 BED: 1 DIS: STATUS: ADM IN TLOC: SPEC: [id number] JADA: 04/15/25 STATUS: COMP REQ: [id number] RECD: 04/15/[address] [facility] [address]: WOOD BERGERON MD SOURCE: ABDOMEN ENTR: 04/15/25-[address] [facility] [address]: Edilma PUENTE SPDESC: INCISION STANLEY ALLISON MD, OWEN S MD SELF,REFERRAL TAMARA THORNTON MD ORDERED: AEROBIC CULTURE COMMENTS: Comment: draining midline incision Has specimen been collected/obtained? Y Specimen Comment: already in lab Comment: draining midline incision ABDOMEN/INCISION Has specimen been collected/obtained? Y Specimen Comment: already in lab Comment: draining midline incision ABDOMEN/INCISION Has specimen been collected/obtained? Y Specimen Comment: already in lab Comment: draining midline incision ABDOMEN/INCISION Has specimen been collected/obtained? Y Specimen Comment: already in lab Comment: draining midline incision ABDOMEN/INCISION Has specimen been collected/obtained? Y Specimen Comment: already in lab Procedure Result Cruz Date-Time AEROBIC CULTURE Final 04/19/25-708 MRL EXTENDED SPECTRUM BETA-LACTAMASE ORGANISM IDENTIFIED. CRITICAL RESULT WAS CALLED BY EMANUEL NYE ON 04/18/25 AT 0804. CRITICAL VALUES WERE READ BACK AND ACKNOWLEDGED BY SONDRA BUCK ( [facility] ) COLONY DESCRIPTION: REPORT 1: 3+ GRAM NEGATIVE RODS IDENTIFICATION AND SENSITIVITY TO FOLLOW REPORT 2: STUDIES TO CONTINUE REPORT 3: GRAM POSITIVE COCCI IN CHAINS . IDENTIFICATION AND SENSITIVITY TO FOLLOW COMMENTS(R): ESBL ENTEROCOCCUS AVIUM ESCHERICHIA COLI CONTINUED ON NEXT PAGE RUN DATE: 04/19/25 [facility] PAGE 2 RUN TIME: [id number] [place] [address] Department of Laboratories [facility] # [id number] [employer] [employer]: Jeni Brown DO Specimen Report SPEC: [id number] PATIENT: MERVAT SINGH [id number] (Continued) Procedure Result Cruz Date-Time AEROBIC CULTURE Final (continued) 04/19/25-708 ENT AVIUM E COLI M.I.C. RX M.I.C. 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 Infection with multidrug resistant organism. Contact Dermatitis. Small-bowel obstruction, s/p exploratory laparotomy and diverting loop colostomy on 04/09/2025. Left pleural effusion. Urinary tract infection, status post treated with ceftriaxone. Anemia requiring blood transfusion. PLAN: Continue Zosyn IV. Continue pain management. Colostomy care. Monitor electrolytes. Continue Clinimix. Continue wound care as recommended by General surgery. This case was reviewed and discussed with my supervising physician Dr. Garcia and the above assessment and plan was formulated and agreed upon. ATTESTATION BY PHYSICIAN I have seen and examined the patient. I reviewed the documentation, medical decision making, and treatment plan as noted by the mid-level provider above. I agree with the findings and plan of care. ALISON GARCIA MD, MIRTA L [facility] Apr 19, 2025 19:08
[2025-04-19] MEDS: BALSAM PERU/CASTOR OIL 60 GM TUBE TP SCH (19:40)
[2025-04-19] MEDS: CLINIMIX-E 5%AA /D15%W 2000ML 2,000 ML IV ONE (20:28)
[2025-04-20] VITALS: BP 117/74; PULSE 73; RESP 20; TEMP 97.8
[2025-04-20 04:00] VITALS: BP 123/75; PULSE 79; RESP 20; TEMP 98.5
[2025-04-20 05:04] LABS: NUCLEATED RED BLOOD CELLS 0.0 % (0.0-0.19); PLATELET COUNT (AUTO) 293.0 K/uL (130-400); RED BLOOD CELL COUNT(AUTO) 3.02 MIL/uL (4.50-6.20); RED CELL DISTRIBUTION WIDTH 12.8 % (11.0-15.5); WHITE BLOOD COUNT (AUTO) 3.7 K/uL (4.8-10.8)
[2025-04-20 07:59] VITALS: O2SAT 100
[2025-04-20 08:14] VITALS: BP 110/89; PULSE 82; RESP 18; TEMP 99
--- NOTE | 2025-04-20 11:06 | PN ---
GENERAL SURGERY PROGRESS NOTE Date/Time Patient Seen: [04/20/2025 ] Problem List: [Partial bowel obstruction] Interval History: [Patient was evaluated at the bedside this morning. No acute overnight events reported by the patient's nurse. Patient's blood pressure has been stable. The patient states his abdominal pain has been well-controlled with the current oral pain meds. Patient is tolerating IV abx. Per report, the patient had approximately 50 cc of watery brown output from the ostomy overnight. Patient continues to pass flatus into the ostomy bag. He is tolerating a GI soft/bland diet and continues to receive TPN. Dressing change was made at bedside and it was noted that the wound appears clean but has brown watery drainage from the incision. No leakage surrounding the ostomy bag was noted.] Current Medications Medications (Trade) Dose Ordered Sig/Kenneth Route Start Time Stop Time Status Last Admin Dose Admin Albumin Human 50 ml @ 100 mls/hr Q6H IV 04/08/25 21:30 04/09/25 07:44 DC 04/09/25 03:02 100 MLS/HR Albumin Human 50 ml @ 0 mls/hr TID IV 04/08/25 21:00 04/08/25 21:18 DC 04/08/25 20:41 100 MLS/HR Albumin Human 250 ml @ 0 mls/hr AD IV 04/19/25 12:30 04/19/25 18:05 DC Ceftriaxone Sodium (ROCEphine 1G INJ) 1 gm Q24H IVPB 04/02/25 02:30 04/04/25 14:19 DC 04/04/25 02:18 1 GM Famotidine (Pepcid 20mg Vial) 20 mg DAILY IV 04/02/25 09:00 04/02/25 10:06 DC 04/02/25 07:57 20 MG Fat Emulsion Intravenous 250 ml @ 42 mls/hr DAILY10 IV 04/05/25 10:00 04/11/25 10:21 DC 04/10/25 09:47 42 MLS/HR Fat Emulsion Intravenous 250 ml @ 42 mls/hr DAILY10 IV 04/15/25 10:00 05/15/25 09:59 04/19/25 19:32 42 MLS/HR Furosemide (LASix 40MG VIAL) 40 mg DAILY IV 04/03/25 09:00 04/02/25 10:06 DC Gabapentin (NEURontin 100 mg CAP) 100 mg TID PO 04/11/25 21:00 05/11/25 20:59 04/20/25 08:22 100 MG Insulin Human Regular (humuLIN R 100 UNIT/ML 3ML) INSULIN SLIDING SCAL... Q6H6 SQ 04/05/25 12:00 05/05/25 11:59 04/09/25 18:30 3 UNIT Lactated Ringer's 1,000 ml @ 50 mls/hr Q20H IV 04/11/25 13:00 04/14/25 08:30 DC 04/14/25 05:55 125 MLS/HR Lactated Ringer's 1,000 ml @ 75 mls/hr [id number] IV 04/02/25 02:30 04/04/25 09:18 DC 04/03/25 04:47 75 MLS/HR Lactated Ringer's 1,000 ml @ 100 mls/hr Q10H IV 04/08/25 21:30 04/09/25 16:56 DC 04/09/25 06:59 100 MLS/HR Magnesium Sulfate 50 ml @ 0 mls/hr PROTOCOL IV 04/15/25 08:30 05/15/25 08:29 04/19/25 02:12 25 MLS/HR Methocarbamol (methoCARBamol) 500 mg Q8H6 PO 04/17/25 13:00 05/11/25 20:59 04/20/25 05:21 500 MG Methocarbamol (methoCARBamol) 500 mg TID PO 04/11/25 21:00 04/17/25 07:58 DC 04/16/25 19:57 500 MG Midodrine (PROAMatine 5 MG TABLET) 10 mg TID PO 04/08/25 21:00 04/16/25 08:08 DC 04/15/25 20:39 10 MG Midodrine (PROAMatine 5 MG TABLET) 15 mg TID PO 04/16/25 09:00 05/16/25 08:59 04/20/25 08:23 15 MG Multivitamins/ Minerals 10 ml/ Folic Acid 1 mg/ Thiamine HCl 100 mg/Sodium Chloride 1,010 ml @ 75 mls/hr DAILY IV 04/03/25 11:30 04/05/25 22:27 DC 04/03/25 13:02 75 MLS/HR Olanzapine (ZyPREXA 5 mg tab) 5 mg HS PO 04/05/25 21:00 04/08/25 11:56 DC 04/07/25 20:46 5 MG Pantoprazole Sodium (PROTonix 40MG INJ) 40 mg BID IVP 04/18/25 21:00 05/18/25 20:59 04/20/25 08:25 40 MG Pantoprazole Sodium (PROTonix 40MG INJ) 40 mg DAILY IVP 04/03/25 09:00 04/08/25 12:57 DC 04/08/25 09:22 40 MG Piperacillin Sod/ Tazobactam Sod (Zosyn 3.375gm+NS 50ml) 3.375 gm Q8H IVPB 04/18/25 20:30 04/28/25 20:29 04/20/25 03:56 3.375 GM Piperacillin Sod/ Tazobactam Sod (Zosyn 3.375gm+NS 50ml) 3.375 gm Q8H IVPB 04/16/25 17:00 04/18/25 16:59 DC 04/18/25 08:56 3.375 GM Sodium Chloride 500 ml @ 125 mls/hr Q4H IV 04/08/25 16:00 04/08/25 18:07 DC Sodium Chloride 1,000 ml @ 0 mls/hr Q0M IV 04/06/25 17:00 04/06/25 17:59 DC Sodium Chloride 1,000 ml @ 0 mls/hr Q0M IV 04/06/25 18:00 04/06/25 17:16 DC Sodium Chloride 1,000 ml @ 0 mls/hr Q0M IV 04/08/25 16:00 04/08/25 16:59 DC 04/08/25 15:44 500 MLS/HR Sodium Chloride 1,000 ml @ 0 mls/hr Q0M IV 04/08/25 17:00 04/08/25 15:46 DC Sodium Chloride 1,000 ml @ 75 mls/hr [id number] IV 04/14/25 08:30 04/17/25 16:58 DC 04/17/25 03:43 75 MLS/HR Sodium Chloride (NS 50ml) 50 ml AD IV 04/18/25 22:00 04/19/25 07:30 DC Sodium Chloride (NS 50ml) 50 ml AD IV 04/16/25 17:00 04/18/25 07:28 DC Wound Care/ Dressing Products (Venelex Ointment) 1 gm DAILY18 TP 04/18/25 18:00 04/19/25 07:29 DC 04/18/25 18:39 1 GM Wound Care/ Dressing Products (Venelex Ointment) apply to sacrum DAILY18 TP 04/19/25 18:00 05/18/25 17:59 04/19/25 19:40 1 GM Physical Examination: Awake, alert, oriented x3 Unlabored breathing Regular rate and rhythm _Abdomen soft with mild tenderness to palpation on the incision. The erythema has decreased. There is light-brown watery drainage noted from the incision site. The remaining bala are in place. The ostomy appears pink with flatus present and positive output. Vital Signs (last 8hr) Date Time Temp Pulse Resp B/P (MAP) Pulse Ox O2 Delivery O2 Flow Rate FiO2 04/20/25 08:14 99.0 82 18 110/89 100 Room Air 04/20/25 04:00 98.4 79 20 123/75 99 Room Air Laboratory: [ ] Hematology Labs: Test 04/20/25 04:34 04/18/25 10:30 Range/Units White Blood Count 3.7 #L 4.8-10.8 K/uL Red Blood Count 3.02 L 4.50-6.20 MIL/uL Hemoglobin 9.0 L 14.0-18.0 g/dL Hematocrit 25.8 L 42-54 % Mean Corpuscular Volume 85.4 79-99 fL Mean Corpuscular Hemoglobin 29.8 27.0-33.0 pg Mean Corpuscular Hemoglobin Concent 34.9 32.0-36.0 g/dL Red Cell Distribution Width 12.8 11.0-15.5 % Platelet Count 293 130-400 K/uL Mean Platelet Volume 8.6 7.5-10.5 fL Nucleated Red Blood Cells 0.0 0.0-0.19 % Immature Granulocyte % (Auto) 1.5 H 0-1 % Neutrophils (%) (Auto) 64.2 40.0-77.0 % Lymphocytes (%) (Auto) 14.1 L 21.0-51.0 % Monocytes (%) (Auto) 18.7 H 3.0-13.0 % Eosinophils (%) (Auto) 1.0 0.0-8.0 % Basophils (%) (Auto) 0.5 0.0-5.0 % Neutrophils # (Auto) 1.3 L 1.8-7.7 K/uL Lymphocytes # (Auto) 0.3 L 1.0-4.8 K/uL Monocytes # (Auto) 0.4 0.1-1.0 K/uL Eosinophils # (Auto) 0.02 0.00-0.70 K/uL Basophils # (Auto) 0.01 0.00-0.20 K/uL Absolute Immature Granulocyte (auto 0.03 0-1 K/uL Chemistry Labs: Test 04/20/25 05:21 04/20/25 04:34 04/19/25 04:48 Range/Units Whole Blood Glucose 89 70-110 MG/DL Magnesium Level 2.00 1.80-2.40 mg/dL Sodium Level 132 L 136-145 mmol/L Potassium Level 4.1 3.5-5.1 mmol/L Chloride Level 98 L 101-111 mmol/L Carbon Dioxide Level 30 21-32 mmol/L Blood Urea Nitrogen 11 7-18 mg/dL Creatinine 0.2 L 0.5-1.3 mg/dL Glomerular Filtration Rate Calc 158 >90 mL/min Random Glucose 74 70-105 mg/dL Total Calcium 8.5 8.5-10.1 mg/dL Total Bilirubin 1.0 # 0.2-1.0 mg/dL Aspartate Amino Transf (AST/SGOT) 21 10-37 U/L Alanine Aminotransferase (ALT/SGPT) 33 12-78 U/L Alkaline Phosphatase 93 50-136 U/L Total Protein 4.6 L 6.0-8.3 g/dL Albumin 1.5 L 3.5-5.0 g/dL Diagnostics / Radiology: [Copy/Paste Echos/Imaging Report here] Impression and Plan: [Patient is stable. Due to the drainage, patient will be NPO and TPN will be continued for 3 to 6 months. IVF will be started. Recommended the primary nurse to apply an ostomy bag to the area were the incision is draining. Continue with the aggressive wound care with peroxide and saline. Continue ostomy bag changes. Continue current pain management regimen. Continue monitoring I&Os closely. PT/OT. Pulmonary toilet. The patient will continue to be monitored. Discharge planning. From surgical standpoint, we recommend discharge to [facility].] Above patient's assessment and plan has been discussed with my attending physician, Dr. Mcgrath. JALYN NEVES PAC Apr 20, 2025 11:06
[2025-04-20 11:15] VITALS: BP 106/71; PULSE 80; RESP 18; TEMP 97.8
--- NOTE | 2025-04-20 12:47 | PN ---
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 SEVERE PAIN (7-10) 04/07/25 14:30 04/08/25 21:13 DC 04/08/25 09:27 2 MG Multivitamins/ Minerals 10 ml/ Folic Acid 1 mg/ Thiamine HCl 100 mg/Sodium Chloride 1,010 ml @ 75 mls/hr DAILY IV 04/03/25 11:30 04/05/25 22:27 DC 04/03/25 13:02 75 MLS/HR Olanzapine (ZyPREXA 5 mg tab) 5 mg HS PO 04/05/25 21:00 04/08/25 11:56 DC 04/07/25 20:46 5 MG Ondansetron HCl (zoFRAN 4MG INJ) 4 mg Q6H PRN IV NAUSEA/VOMITING 04/02/25 02:30 05/02/25 02:29 04/17/25 17:20 4 MG Pantoprazole Sodium (PROTonix 40MG INJ) 40 mg BID IVP 04/18/25 21:00 05/18/25 20:59 04/20/25 08:25 40 MG Pantoprazole Sodium (PROTonix 40MG INJ) 40 mg DAILY IVP 04/03/25 09:00 04/08/25 12:57 DC 04/08/25 09:22 40 MG Piperacillin Sod/ Tazobactam Sod (Zosyn 3.375gm+NS 50ml) 3.375 gm Q8H IVPB 04/18/25 20:30 04/28/25 20:29 04/20/25 03:56 3.375 GM Piperacillin Sod/ Tazobactam Sod (Zosyn 3.375gm+NS 50ml) 3.375 gm Q8H IVPB 04/16/25 17:00 04/18/25 16:59 DC 04/18/25 08:56 3.375 GM Potassium Chloride 100 ml @ 100 mls/hr AD PRN IV POTASSIUM PROTOCOL 04/06/25 06:30 05/06/25 06:29 04/10/25 08:28 100 MLS/HR Potassium Chloride (K-Dur/Klor-Con 20meq) 20 meq AD PRN PO POTASSIUM PROTOCOL 04/06/25 06:30 05/06/25 06:29 04/18/25 09:11 20 MEQ Potassium Chloride (KCl 10% Elixir 20meq/15ml) 20 meq AD PRN PO POTASSIUM PROTOCOL 04/06/25 06:30 05/06/25 06:29 Sodium Chloride 500 ml @ 125 mls/hr Q4H IV 04/08/25 16:00 04/08/25 18:07 DC Sodium Chloride 1,000 ml @ 0 mls/hr Q0M IV 04/06/25 17:00 04/06/25 17:59 DC Sodium Chloride 1,000 ml @ 0 mls/hr Q0M IV 04/06/25 18:00 04/06/25 17:16 DC Sodium Chloride 1,000 ml @ 0 mls/hr Q0M IV 04/08/25 16:00 04/08/25 16:59 DC 04/08/25 15:44 500 MLS/HR Sodium Chloride 1,000 ml @ 0 mls/hr Q0M IV 04/08/25 17:00 04/08/25 15:46 DC Sodium Chloride 1,000 ml @ 75 mls/hr [id number] IV 04/14/25 08:30 04/17/25 16:58 DC 04/17/25 03:43 75 MLS/HR Sodium Chloride (NS 50ml) 50 ml AD IV 04/18/25 22:00 04/19/25 07:30 DC Sodium Chloride (NS 50ml) 50 ml AD IV 04/16/25 17:00 04/18/25 07:28 DC Tramadol HCl (UltRAM) 50 mg Q4H PRN PO MODERATE PAIN (4-6) 04/18/25 10:30 04/18/25 17:59 DC 04/18/25 15:33 50 MG Tramadol HCl (UltRAM) 50 mg Q4PRN PRN PO MODERATE PAIN (4-6) 04/13/25 18:00 04/18/25 07:29 DC 04/18/25 06:20 50 MG Tramadol HCl (UltRAM) 50 mg Q6H PRN PO MODERATE PAIN (4-6) 04/18/25 22:00 04/19/25 07:29 DC 04/19/25 05:18 50 MG Tramadol HCl (UltRAM) 50 mg Q6H PRN PO PAIN LEVEL 4 TO 6 04/19/25 07:30 04/24/25 07:29 04/20/25 08:25 50 MG Tramadol HCl (UltRAM) 50 mg Q6H PRN PO MODERATE PAIN (4-6) 04/11/25 18:30 04/13/25 17:47 DC 04/13/25 17:22 50 MG Wound Care/ Dressing Products (Venelex Ointment) 1 gm DAILY18 TP 04/18/25 18:00 04/19/25 07:29 DC 04/18/25 18:39 1 GM Wound Care/ Dressing Products (Venelex Ointment) apply to sacrum DAILY18 TP 04/19/25 18:00 05/18/25 17:59 04/19/25 19:40 1 GM DIAGNOSTICS / RADIOLOGY: [ ] ASSESSMENT: Acute hypotension initial lactic 1.6 has a NG tube likely from volume depletion Small-bowel obstruction, POA s/p exploratory laparotomy diverting loop colostomy on 04/09/2025. by dr Mcgrath Surgical site wound infection with Enterococcus albumin E coli ESBL Acute postoperative anemia, status post transfusion of 1 unit of PRBC 04/18/2025 Bilateral pleural effusions, POA Suspected neoplasm of the sigmoid colon, POA Urinary tract infection, POA Severe malnutrition BMI of 17 Uncontrolled diabetes mellitus type 2 with hypoglycemia Chronic obstructive pulmonary disease History of Coronary Artery Disease History of stroke History of hypotension with the hypotensive episodes PLAN: patient is seen and examined at bedside, discussed with the RN, no acute events overnight, during my visit comfortably in bed, alert oriented x3, on TPN. BP 106/71, afebrile, saturating normal on room air. Hemoglobin 9.0, hematocrit 25.8. Patient getting broad-spectrum IV at the time of my visit. Patient getting good pain control with current medical management. Discussed with general surgery, due to the drainage, patient will be NPO, TPN to be continue for 3-6 months. IV fluids started. Primary nurse to apply and ostomy back to the area where the incision is draining. Continue aggressive wound care with peroxide and saline. Continue ostomy bag changes. Discharge plan discussed with case management, plan is to discharge to LT[facility]. Patient in agreement. NEURO: Minimize central acting medications as possible. Fall Precautions. Well lighted room through the day and minimize interruptions through the night to prevent acute delirium. PULMONARY: Supplemental 02 as needed BiPAP as necessary, for respiratory distress Titrate Fio2 to keep Spo2 > or = 90% DuoNebs and CPT as needed IS hourly while awake for pulmonary hygiene prn Out of bed to chair as tolerated Maintain aspiration precautions at all times CARDIOVASCULAR: Follow hemodynamics. Vital signs per facility protocol GI & NUTRITION: Continue nutritional support Aspirations precautions Prokinetic agents and laxatives as needed KIDNEYS & ELECTROLYTES: Strict monitoring of intake and output Daily weights Avoid nephrotoxic agents Monitor electrolytes and replace as needed Goal urine output of 30mL/hr or 0.5mL/kg/hr Medications to be dosed according to renal function. Avoid contrast if possible ENDOCRINE: Maintain blood glucose between 100-180 at all times. Insulin sliding scale for blood glucose management Hypoglycemia and hyperglycemia protocol in place INFECTIOUS DISEASE: Trend temperature, WBC and procalcitonin level Follow cultures, deescalate antibiotics as soon as possible. Panculture if new onset fever HEMATOLOGY & COAGULATION: Monitor H&H. Keep Hgb > 7 Transfuse 1 unit of PRBC for Hgb < 7 Transfuse 1 pack of platelets of platelets < 20, 000 Watch for any signs and symptoms of bleeding SKIN: Pressure ulcer prevention per facility protocol Specialty mattress as needed ORTHO/REHAB Continue PT/OT PRN: MEDICATIONS Tylenol 650 mg po every 4 hrs for fever zofran 4 mg IV every 6 hrs for n/v Hydralazine 5 mg IV every 4 hrs systolic pressure > 160 bowel regiment: lactulose 20 gm PO BID PRN constipation Supportive measures: Continue GI and DVT prophylaxis Disposition: Pending improvement in clinical condition All questions answered time spent: > 35 min WOOD BERGERON MD Apr 20, 2025 12:47
--- NOTE | 2025-04-20 16:39 | CONS ---
CONSULTATION NOTE Date of Service: Apr 20, 2025 Reason for Consultation: [ ] Requesting Physician: [ ] HISTORY OF PRESENT ILLNESS: [ ] REVIEW OF SYSTEMS CONSTITUTIONAL: Denies fever, chills, or fatigue. HEAD/FACE: No signs of trauma. EENT: Denies eye pain, blurred vision, double vision, or light sensitivity. RESPIRATORY: Denies shortness of breath, cough, wheezing CARDIOVASCULAR: Denies chest pain, palpitation, syncope GASTROINTESTINAL/ABDOMINAL: Denies abdominal pain, constipation, diarrhea, nausea or vomiting GENITOURINARY: Denies dysuria or hematuria. MUSCULOSKELETAL: Denies joint pain, tenderness, or trauma. INTEGUMENTARY: Denies rash or itchiness NEUROLOGICAL/PSYCH: Denies anxiety, depression, heat or cold intolerance. PAST MEDICAL HISTORY: [ ] PAST SURGICAL HISTORY: [ ] PAST SOCIAL HISTORY: [ ] FAMILY HISTORY: [ ] Coded Allergies: No Known Drug Allergies (Unverified Allergy, Unknown, 03/18/22) PHYSICAL EXAM EYES: Anicteric. Pupils equal and reactive. HENT: No oral thrush seen, moist Oral mucosa NECK: Supple, no JVD or thyromegaly. LUNGS: Good air entry. No rales, no rhonchi. CARDIOVASCULAR: S1, S2 regular. No murmur heard. ABDOMEN: Soft, non tender, bowel sounds present, no organomegaly CENTRAL NERVOUS SYSTEM: Awake, alert, oriented x 3. No focal deficits. SKIN: No rashes, no swelling. LYMPHATICS: No peripheral lymphadenopathy MUSCULOSKELETAL: No joint swelling, erythema or tenderness. EXTREMITIES: No cyanosis or clubbing BACK: No deformity, no pressure ulcer. GENITOURINARY: No dysuria or hematuria Vital Sign (Last 24 Hours) 04/19/25 04/20/25 20:00 11:15 Temp 97.9 Pulse 80 Resp 18 B/P (MAP) 106/71 Pulse Ox 99 O2 Delivery Room Air O2 Flow Rate 0 FiO2 21 Intake & Output (last 24hrs) 04/19/25 04/19/25 04/20/25 15:00 23:00 07:00 Intake Total 960 ml 900.0 ml 250.0 ml Output Total 800 ml 800 ml Balance 960 ml 100.0 ml -550.0 ml LABS: Laboratory: Test 04/20/25 10:55 04/20/25 04:34 04/19/25 04:48 04/18/25 20:25 Range/Units Whole Blood Glucose 117 H 70-110 MG/DL White Blood Count 3.7 #L 4.8-10.8 K/uL Red Blood Count 3.02 L 4.50-6.20 MIL/uL Hemoglobin 9.0 L 14.0-18.0 g/dL Hematocrit 25.8 L 42-54 % Mean Corpuscular Volume 85.4 79-99 fL Mean Corpuscular Hemoglobin 29.8 27.0-33.0 pg Mean Corpuscular Hemoglobin Concent 34.9 32.0-36.0 g/dL Red Cell Distribution Width 12.8 11.0-15.5 % Platelet Count 293 130-400 K/uL Mean Platelet Volume 8.6 7.5-10.5 fL Nucleated Red Blood Cells 0.0 0.0-0.19 % Magnesium Level 2.00 1.80-2.40 mg/dL Sodium Level 132 L 136-145 mmol/L Potassium Level 4.1 3.5-5.1 mmol/L Chloride Level 98 L 101-111 mmol/L Carbon Dioxide Level 30 21-32 mmol/L Blood Urea Nitrogen 11 7-18 mg/dL Creatinine 0.2 L 0.5-1.3 mg/dL Glomerular Filtration Rate Calc 158 >90 mL/min Random Glucose 74 70-105 mg/dL Total Calcium 8.5 8.5-10.1 mg/dL Total Bilirubin 1.0 # 0.2-1.0 mg/dL Aspartate Amino Transf (AST/SGOT) 21 10-37 U/L Alanine Aminotransferase (ALT/SGPT) 33 12-78 U/L Alkaline Phosphatase 93 50-136 U/L Total Protein 4.6 L 6.0-8.3 g/dL Albumin 1.5 L 3.5-5.0 g/dL Urine Osmolality 379 50-1200 mOsm/kg Urine Random Sodium 102 40-220 mmol/l Urine Random Potassium 14 L 25-125 mmol/L Urine Random Chloride 98 L 110-250 mmol/L DIAGNOSTICS / RADIOLOGY: [ ] PROBLEM LIST : Medical Problems: Pressure ulcer of sacral region, stage 2 PLAN: Wound care to sacrum: Cleanse with normal saline, pat dry, apply venelex, cover with alleyn, change daily and prn Keep wounds clean and dry Offloading/reposition q 2 hours Continue IV antibiotics per ID Comorbidities per primary care team Further Management per hospital course. Thank You for the consult and allowing us to participate in the care of this patient. MIRLANDE LARIOSP Apr 20, 2025 16:39
--- NOTE | 2025-04-20 17:48 | PN ---
INFECTIOUS DISEASE PROGRESS NOTE Date of Service: Apr 20, 2025 SUBJECTIVE: We will continue on Zosyn IV and continue to monitor. Continues with fecal material-like drainage from the abdominal wound incision and an ostomy bag will be placed to site to collect drainage. Hemoglobin remains stable at 9.0 after the 1 unit of blood transfusion on 04/18/2025. No reports of nausea or vomiting. Per report case management is working on placement to LTAC. PHYSICAL EXAM EYES: Anicteric. Pupils equal and reactive. HENT: No oral thrush seen, moist Oral mucosa. NECK: Supple, no JVD or thyromegaly. LUNGS: Good air entry. No rales, no rhonchi. CARDIOVASCULAR: S1, S2 regular. No murmur heard. ABDOMEN: Soft, non tender, bowel sounds present. Abdominal pain. Right colostomy. Mid abdominal surgical incision with erythema. CENTRAL NERVOUS SYSTEM: Awake, alert, oriented x 3. SKIN: No rashes, no swelling. LYMPHATICS: No peripheral lymphadenopathy. MUSCULOSKELETAL: No joint swelling, erythema or tenderness. EXTREMITIES: No cyanosis or clubbing. BACK: No deformity, no pressure ulcer. GENITOURINARY: No dysuria or hematuria. Vital Sign (Last 12 Hours) 04/20/25 04/20/25 08:14 11:15 Temp 99.0 97.9 Pulse 82 80 Resp 18 18 B/P (MAP) 110/89 106/71 Pulse Ox 100 99 O2 Delivery Room Air Room Air Intake & Output (last 24hrs) 04/19/25 04/19/25 04/20/25 15:00 23:00 07:00 Intake Total 960 ml 900.0 ml 250.0 ml Output Total 800 ml 800 ml Balance 960 ml 100.0 ml -550.0 ml LABS: Laboratory: Test 04/20/25 16:36 04/20/25 04:34 04/19/25 04:48 04/18/25 20:25 Range/Units Whole Blood Glucose 120 H 70-110 MG/DL White Blood Count 3.7 #L 4.8-10.8 K/uL Red Blood Count 3.02 L 4.50-6.20 MIL/uL Hemoglobin 9.0 L 14.0-18.0 g/dL Hematocrit 25.8 L 42-54 % Mean Corpuscular Volume 85.4 79-99 fL Mean Corpuscular Hemoglobin 29.8 27.0-33.0 pg Mean Corpuscular Hemoglobin Concent 34.9 32.0-36.0 g/dL Red Cell Distribution Width 12.8 11.0-15.5 % Platelet Count 293 130-400 K/uL Mean Platelet Volume 8.6 7.5-10.5 fL Nucleated Red Blood Cells 0.0 0.0-0.19 % Magnesium Level 2.00 1.80-2.40 mg/dL Sodium Level 132 L 136-145 mmol/L Potassium Level 4.1 3.5-5.1 mmol/L Chloride Level 98 L 101-111 mmol/L Carbon Dioxide Level 30 21-32 mmol/L Blood Urea Nitrogen 11 7-18 mg/dL Creatinine 0.2 L 0.5-1.3 mg/dL Glomerular Filtration Rate Calc 158 >90 mL/min Random Glucose 74 70-105 mg/dL Total Calcium 8.5 8.5-10.1 mg/dL Total Bilirubin 1.0 # 0.2-1.0 mg/dL Aspartate Amino Transf (AST/SGOT) 21 10-37 U/L Alanine Aminotransferase (ALT/SGPT) 33 12-78 U/L Alkaline Phosphatase 93 50-136 U/L Total Protein 4.6 L 6.0-8.3 g/dL Albumin 1.5 L 3.5-5.0 g/dL Urine Osmolality 379 50-1200 mOsm/kg Urine Random Sodium 102 40-220 mmol/l Urine Random Potassium 14 L 25-125 mmol/L Urine Random Chloride 98 L 110-250 mmol/L DIAGNOSTICS / RADIOLOGY: PATIENT: MERVAT SINGH ACCT: [id number] LOC: [facility] U: [id number] AGE/SX: 54/M ROOM: [facility] RE04/01/[address]: WOOD BERGERON MD : 1970 BED: 1 DIS: STATUS: ADM IN TLOC: SPEC: [id number] JADA: 04/15/25 STATUS: COMP REQ: [id number] RECD: 04/15/[address] [facility] [address]: WOOD BERGERON MD SOURCE: ABDOMEN ENTR: 04/15/25-172 [facility] DR: Edilma PUENTE SPDESC: INCISION STANLEY ALLISON MD, OWEN S MD SELF,REFERRAL TAMARA THORNTON MD ORDERED: AEROBIC CULTURE COMMENTS: Comment: draining midline incision Has specimen been collected/obtained? Y Specimen Comment: already in lab Comment: draining midline incision ABDOMEN/INCISION Procedure Result Cruz Date-Time AEROBIC CULTURE Final 04/19/25-708 MRL EXTENDED SPECTRUM BETA-LACTAMASE ORGANISM IDENTIFIED. CRITICAL RESULT WAS CALLED BY EMANUEL NYE ON 04/18/25 AT 0804. CRITICAL VALUES WERE READ BACK AND ACKNOWLEDGED BY SONDRA BUCK ( [facility] [place] ) COLONY DESCRIPTION: REPORT 1: 3+ GRAM NEGATIVE RODS IDENTIFICATION AND SENSITIVITY TO FOLLOW REPORT 2: STUDIES TO CONTINUE REPORT 3: GRAM POSITIVE COCCI IN CHAINS . IDENTIFICATION AND SENSITIVITY TO FOLLOW COMMENTS(R): ESBL ENTEROCOCCUS AVIUM ESCHERICHIA COLI CONTINUED ON NEXT PAGE RUN DATE: 04/19/25 [facility] PAGE 2 RUN TIME: [id number] [address], [place] [address] Department of Laboratories [facility] # [id number] Blocker And Polisher: Jeni Brown DO Specimen Report SPEC: [id number] PATIENT: MERVAT SINGH [id number] (Continued) Procedure Result Cruz Date-Time AEROBIC CULTURE Final (continued) 04/19/25-708 BLAYNE BOOKER E COLI M.I.C. RX M.I.C. 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 Infection with multidrug resistant organism. Contact Dermatitis. Small-bowel obstruction, s/p exploratory laparotomy and diverting loop colostomy on 04/09/2025. Left pleural effusion. Urinary tract infection, status post treated with ceftriaxone. Anemia requiring blood transfusion. PLAN: Continue Zosyn IV. Continue pain management. Colostomy care. Monitor electrolytes. Continue Clinimix. Continue wound care as recommended by General surgery. Per report case management working on [facility] placement. This case was reviewed and discussed with my supervising physician Dr. Garcia and the above assessment and plan was formulated and agreed upon. ATTESTATION BY PHYSICIAN I have seen and examined the patient. I reviewed the documentation, medical decision making, and treatment plan as noted by the mid-level provider above. I agree with the findings and plan of care. ALISON GARCIA MD, MIRTA L [facility] Apr 20, 2025 17:48
[2025-04-20 20:00] VITALS: BP 97/71; PULSE 86; RESP 16; TEMP 99.3; O2SAT 98
[2025-04-21] VITALS: BP 90/60; PULSE 68; RESP 18; TEMP 98.9
[2025-04-21] MEDS: CLINIMIX-E 5%AA /D15%W 2000ML 2,000 ML IV ONE (00:03)
[2025-04-21 04:00] VITALS: BP 92/64; PULSE 66; RESP 18; TEMP 97.8
[2025-04-21 05:11] LABS: NUCLEATED RED BLOOD CELLS 0.0 % (0.0-0.19); PLATELET COUNT (AUTO) 282.0 K/uL (130-400); RED BLOOD CELL COUNT(AUTO) 2.83 MIL/uL (4.50-6.20); RED CELL DISTRIBUTION WIDTH 12.8 % (11.0-15.5); WHITE BLOOD COUNT (AUTO) 3.5 K/uL (4.8-10.8)
[2025-04-21 05:33] LABS: ASPARTATE AMINOTRANSFERASE 11.0 U/L (10-37); CREATININE 0.2 mg/dL (0.5-1.3); GLOMERULAR FILTR. RATE CALC 158.0 mL/min (>90); GLUCOSE,RANDOM 101.0 mg/dL (70-105); SODIUM SERUM 129.0 mmol/L (136-145); TOTAL PROTEIN, SERUM 4.4 g/dL (6.0-8.3); UREA NITROGEN, BLOOD 14.0 mg/dL (7-18)
[2025-04-21 08:00] VITALS: BP 80/52; PULSE 68; RESP 16; TEMP 98; O2SAT 98
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
--- NOTE | 2025-04-21 12:15 | NUR ---
PT sitting in bed w/ eyes open A&Ox4 able to make needs known. Discharge instructions given to PT verbally and written. PT verbally acknowledged understanding. PT escorted to ambulance by [facility] employees w/o complications to transfer to [facility].
--- NOTE | 2025-04-21 13:10 | PN ---
GENERAL SURGERY PROGRESS NOTE Date/Time Patient Seen: [04/21/2025] Problem List: [Partial bowel obstruction] Interval History: [Patient was evaluated at the bedside this morning. No acute overnight events reported by the patient's nurse. Patient's blood pressure has been soft The patient states his abdominal pain has been well-controlled with the current oral pain meds. Patient is tolerating IV abx. Ostomy is functioning well. Patient continues to pass flatus into the ostomy bag. He continues to receive TPN. Fecal-like drainage noted on ostomy bag that was placed on midline incision.] Current Medications Medications (Trade) Dose Ordered Sig/Kenneth Route Start Time Stop Time Status Last Admin Dose Admin Albumin Human 50 ml @ 100 mls/hr Q6H IV 04/08/25 21:30 04/09/25 07:44 DC 04/09/25 03:02 100 MLS/HR Albumin Human 50 ml @ 0 mls/hr TID IV 04/08/25 21:00 04/08/25 21:18 DC 04/08/25 20:41 100 MLS/HR Albumin Human 250 ml @ 0 mls/hr AD IV 04/19/25 12:30 04/19/25 18:05 DC Ceftriaxone Sodium (ROCEphine 1G INJ) 1 gm Q24H IVPB 04/02/25 02:30 04/04/25 14:19 DC 04/04/25 02:18 1 GM Famotidine (Pepcid 20mg Vial) 20 mg DAILY IV 04/02/25 09:00 04/02/25 10:06 DC 04/02/25 07:57 20 MG Fat Emulsion Intravenous 250 ml @ 42 mls/hr DAILY10 IV 04/05/25 10:00 04/11/25 10:21 DC 04/10/25 09:47 42 MLS/HR Fat Emulsion Intravenous 250 ml @ 42 mls/hr DAILY10 IV 04/15/25 10:00 05/15/25 09:59 04/21/25 09:25 42 MLS/HR Furosemide (LASix 40MG VIAL) 40 mg DAILY IV 04/03/25 09:00 04/02/25 10:06 DC Gabapentin (NEURontin 100 mg CAP) 100 mg TID PO 04/11/25 21:00 05/11/25 20:59 04/21/25 09:28 100 MG Insulin Human Regular (humuLIN R 100 UNIT/ML 3ML) INSULIN SLIDING SCAL... Q6H6 SQ 04/05/25 12:00 05/05/25 11:59 04/09/25 18:30 3 UNIT Lactated Ringer's 1,000 ml @ 50 mls/hr Q20H IV 04/11/25 13:00 04/14/25 08:30 DC 04/14/25 05:55 125 MLS/HR Lactated Ringer's 1,000 ml @ 75 mls/hr [id number] IV 04/02/25 02:30 04/04/25 09:18 DC 04/03/25 04:47 75 MLS/HR Lactated Ringer's 1,000 ml @ 100 mls/hr Q10H IV 04/08/25 21:30 04/09/25 16:56 DC 04/09/25 06:59 100 MLS/HR Magnesium Sulfate 50 ml @ 0 mls/hr PROTOCOL IV 04/15/25 08:30 05/15/25 08:29 04/19/25 02:12 25 MLS/HR Methocarbamol (methoCARBamol) 500 mg Q8H6 PO 04/17/25 13:00 05/11/25 20:59 04/21/25 06:27 500 MG Methocarbamol (methoCARBamol) 500 mg TID PO 04/11/25 21:00 04/17/25 07:58 DC 04/16/25 19:57 500 MG Midodrine (PROAMatine 5 MG TABLET) 10 mg TID PO 04/08/25 21:00 04/16/25 08:08 DC 04/15/25 20:39 10 MG Midodrine (PROAMatine 5 MG TABLET) 15 mg TID PO 04/16/25 09:00 05/16/25 08:59 04/21/25 09:27 15 MG Multivitamins/ Minerals 10 ml/ Folic Acid 1 mg/ Thiamine HCl 100 mg/Sodium Chloride 1,010 ml @ 75 mls/hr DAILY IV 04/03/25 11:30 04/05/25 22:27 DC 04/03/25 13:02 75 MLS/HR Olanzapine (ZyPREXA 5 mg tab) 5 mg HS PO 04/05/25 21:00 04/08/25 11:56 DC 04/07/25 20:46 5 MG Pantoprazole Sodium (PROTonix 40MG INJ) 40 mg BID IVP 04/18/25 21:00 05/18/25 20:59 04/21/25 09:26 40 MG Pantoprazole Sodium (PROTonix 40MG INJ) 40 mg DAILY IVP 04/03/25 09:00 04/08/25 12:57 DC 04/08/25 09:22 40 MG Piperacillin Sod/ Tazobactam Sod (Zosyn 3.375gm+NS 50ml) 3.375 gm Q8H IVPB 04/18/25 20:30 04/28/25 20:29 04/21/25 03:56 3.375 GM Piperacillin Sod/ Tazobactam Sod (Zosyn 3.375gm+NS 50ml) 3.375 gm Q8H IVPB 04/16/25 17:00 04/18/25 16:59 DC 04/18/25 08:56 3.375 GM Sodium Chloride 500 ml @ 125 mls/hr Q4H IV 04/08/25 16:00 04/08/25 18:07 DC Sodium Chloride 1,000 ml @ 0 mls/hr Q0M IV 04/06/25 17:00 04/06/25 17:59 DC Sodium Chloride 1,000 ml @ 0 mls/hr Q0M IV 04/06/25 18:00 04/06/25 17:16 DC Sodium Chloride 1,000 ml @ 0 mls/hr Q0M IV 04/08/25 16:00 04/08/25 16:59 DC 04/08/25 15:44 500 MLS/HR Sodium Chloride 1,000 ml @ 0 mls/hr Q0M IV 04/08/25 17:00 04/08/25 15:46 DC Sodium Chloride 1,000 ml @ 75 mls/hr [id number] IV 04/14/25 08:30 04/17/25 16:58 DC 04/17/25 03:43 75 MLS/HR Sodium Chloride (NS 50ml) 50 ml AD IV 04/18/25 22:00 04/19/25 07:30 DC Sodium Chloride (NS 50ml) 50 ml AD IV 04/16/25 17:00 04/18/25 07:28 DC Wound Care/ Dressing Products (Venelex Ointment) 1 gm DAILY18 TP 04/18/25 18:00 04/19/25 07:29 DC 04/18/25 18:39 1 GM Wound Care/ Dressing Products (Venelex Ointment) apply to sacrum DAILY18 TP 04/19/25 18:00 05/18/25 17:59 04/20/25 18:33 1 GM Physical Examination: Awake, alert, oriented x3 Unlabored breathing Regular rate and rhythm _Abdomen soft with mild tenderness to palpation on the incision. Fecal-like drainage noted from the incision site. The remaining bala are in place. The ostomy appears pink with flatus present and positive output. Vital Signs (last 8hr) Date Time Temp Pulse Resp B/P (MAP) Pulse Ox O2 Delivery O2 Flow Rate FiO2 04/21/25 08:00 98.1 68 16 80/52 98 Room Air Laboratory: [ ] Hematology Labs: Test 04/21/25 04:50 Range/Units White Blood Count 3.5 L 4.8-10.8 K/uL Red Blood Count 2.83 L 4.50-6.20 MIL/uL Hemoglobin 8.5 L 14.0-18.0 g/dL Hematocrit 24.4 L 42-54 % Mean Corpuscular Volume 86.2 79-99 fL Mean Corpuscular Hemoglobin 30.0 27.0-33.0 pg Mean Corpuscular Hemoglobin Concent 34.8 32.0-36.0 g/dL Red Cell Distribution Width 12.8 11.0-15.5 % Platelet Count 282 130-400 K/uL Mean Platelet Volume 8.3 7.5-10.5 fL Nucleated Red Blood Cells 0.0 0.0-0.19 % Chemistry Labs: Test 04/21/25 11:50 04/21/25 04:50 Range/Units Whole Blood Glucose 111 H 70-110 MG/DL Sodium Level 129 L 136-145 mmol/L Potassium Level 4.1 3.5-5.1 mmol/L Chloride Level 97 L 101-111 mmol/L Carbon Dioxide Level 28 21-32 mmol/L Blood Urea Nitrogen 14 7-18 mg/dL Creatinine 0.2 L 0.5-1.3 mg/dL Glomerular Filtration Rate Calc 158 >90 mL/min Random Glucose 101 70-105 mg/dL Total Calcium 8.4 L 8.5-10.1 mg/dL Magnesium Level 2.00 1.80-2.40 mg/dL Total Bilirubin 0.9 0.2-1.0 mg/dL Aspartate Amino Transf (AST/SGOT) 11 10-37 U/L Alanine Aminotransferase (ALT/SGPT) 24 12-78 U/L Alkaline Phosphatase 98 50-136 U/L Total Protein 4.4 L 6.0-8.3 g/dL Albumin 1.5 L 3.5-5.0 g/dL Diagnostics / Radiology: [Copy/Paste Echos/Imaging Report here] Impression and Plan: [Patient is stable. Will continue to treat the patient conservatively. He will remain on NPO status, on IVF, and TPN will be continued for 3 to 6 months. Continue with the aggressive wound care with peroxide and saline. Continue ostomy bag changes at both sites. Continue current pain management regimen. Continue monitoring I&Os closely. PT/OT. Pulmonary toilet. The patient will continue to be monitored. Discharge planning to [facility].] Above patient's assessment and plan has been discussed with my attending physician, Dr. Mcgrath. JALYN NEVES PAC Apr 21, 2025 13:10
--- NOTE | 2025-04-21 13:17 | PN ---
INFECTIOUS DISEASE PROGRESS NOTE Date of Service: Apr 21, 2025 SUBJECTIVE: Patient was approved to [facility] and being discharged today. Patient to continue current IV antibiotic for a minimum of 3 weeks. PHYSICAL EXAM EYES: Anicteric. Pupils equal and reactive. HENT: No oral thrush seen, moist Oral mucosa. NECK: Supple, no JVD or thyromegaly. LUNGS: Good air entry. No rales, no rhonchi. CARDIOVASCULAR: S1, S2 regular. No murmur heard. ABDOMEN: Soft, non tender, bowel sounds present. Abdominal pain. Right colos kinga. Mid abdominal surgical incision with erythema. CENTRAL NERVOUS SYSTEM: Awake, alert, oriented x 3. SKIN: No rashes, no swelling. LYMPHATICS: No peripheral lymphadenopathy. MUSCULOSKELETAL: No joint swelling, erythema or tenderness. EXTREMITIES: No cyanosis or clubbing. BACK: No deformity, no pressure ulcer. GENITOURINARY: No dysuria or hematuria. Vital Sign (Last 12 Hours) 04/21/25 04/21/25 04:00 08:00 Temp 97.9 98.1 Pulse 66 68 Resp 18 16 B/P (MAP) 92/64 80/52 Pulse Ox 97 98 O2 Delivery Room Air Room Air Intake & Output (last 24hrs) 04/20/25 04/20/25 04/21/25 15:00 23:00 07:00 Intake Total 700 ml Output Total 900 ml 1000 ml 250 ml Balance -900 ml -300 ml -250 ml LABS: Laboratory: Test 04/21/25 11:50 04/21/25 04:50 Range/Units Whole Blood Glucose 111 H 70-110 MG/DL White Blood Count 3.5 L 4.8-10.8 K/uL Red Blood Count 2.83 L 4.50-6.20 MIL/uL Hemoglobin 8.5 L 14.0-18.0 g/dL Hematocrit 24.4 L 42-54 % Mean Corpuscular Volume 86.2 79-99 fL Mean Corpuscular Hemoglobin 30.0 27.0-33.0 pg Mean Corpuscular Hemoglobin Concent 34.8 32.0-36.0 g/dL Red Cell Distribution Width 12.8 11.0-15.5 % Platelet Count 282 130-400 K/uL Mean Platelet Volume 8.3 7.5-10.5 fL Nucleated Red Blood Cells 0.0 0.0-0.19 % Sodium Level 129 L 136-145 mmol/L Potassium Level 4.1 3.5-5.1 mmol/L Chloride Level 97 L 101-111 mmol/L Carbon Dioxide Level 28 21-32 mmol/L Blood Urea Nitrogen 14 7-18 mg/dL Creatinine 0.2 L 0.5-1.3 mg/dL Glomerular Filtration Rate Calc 158 >90 mL/min Random Glucose 101 70-105 mg/dL Total Calcium 8.4 L 8.5-10.1 mg/dL Magnesium Level 2.00 1.80-2.40 mg/dL Total Bilirubin 0.9 0.2-1.0 mg/dL Aspartate Amino Transf (AST/SGOT) 11 10-37 U/L Alanine Aminotransferase (ALT/SGPT) 24 12-78 U/L Alkaline Phosphatase 98 50-136 U/L Total Protein 4.4 L 6.0-8.3 g/dL Albumin 1.5 L 3.5-5.0 g/dL DIAGNOSTICS / RADIOLOGY: PATIENT: MERVAT SINGH ACCT: [id number] [facility]: [facility] U: [id number] AGE/SX: 54/M ROOM: [facility] RE04/01/[address]: WOOD BERGERON MD : 1970 BED: 1 DIS: STATUS: ADM IN TLOC: SPEC: [id number] JADA: 04/15/25 STATUS: COMP REQ: [id number] RECD: 04/15/[address]: WOOD BERGERON MD SOURCE: ABDOMEN ENTR: 04/15/25-172 [facility] [address]: Edilma PUENTE SPDESC: INCISION STANLEY ALLISON MD, OWEN S MD SELF,REFERRAL TAMARA THORNTON MD ORDERED: AEROBIC CULTURE COMMENTS: Comment: draining midline incision Has specimen been collected/obtained? Y Specimen Comment: already in lab Comment: draining midline incision ABDOMEN/INCISION Procedure Result Cruz Date-Time AEROBIC CULTURE Final 04/19/25-0709 MRL EXTENDED SPECTRUM BETA-LACTAMASE ORGANISM IDENTIFIED. CRITICAL RESULT WAS CALLED BY EMANUEL NYE ON 04/18/25 AT 0804. CRITICAL VALUES WERE READ BACK AND ACKNOWLEDGED BY SONDRA BUCK ( [facility] ) COLONY DESCRIPTION: REPORT 1: 3+ GRAM NEGATIVE RODS IDENTIFICATION AND SENSITIVITY TO FOLLOW REPORT 2: STUDIES TO CONTINUE REPORT 3: GRAM POSITIVE COCCI IN CHAINS . IDENTIFICATION AND SENSITIVITY TO FOLLOW COMMENTS(R): ESBL ENTEROCOCCUS AVIUM ESCHERICHIA COLI CONTINUED ON NEXT PAGE RUN DATE: 04/19/25 [facility] PAGE 2 RUN TIME: [id number] [address], [place] [address] Department of Laboratories [facility] # [id number] Rabbit Dresser: Jeni Brown DO Specimen Report SPEC: [id number] PATIENT: MERVAT SINGH [id number] (Continued) Procedure Result Cruz Date-Time AEROBIC CULTURE Final (continued) 04/19/25-708 ENT AVIUM E COLI M.I.C. RX M.I.C. 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 Infection with multidrug resistant organism. Contact Dermatitis. Small-bowel obstruction, s/p exploratory laparotomy and diverting loop colostomy on 04/09/2025. Left pleural effusion. Urinary tract infection, status post treated with ceftriaxone. Anemia requiring blood transfusion. PLAN: Continue Zosyn IV. Continue pain management. Colostomy care. Continue Clinimix. Continue wound care as recommended by General surgery. Patient was approved to [facility] and being discharged today. Patient to continue current IV antibiotic for a minimum of 3 weeks. This case was reviewed and discussed with my supervising physician Dr. Garcia and the above assessment and plan was formulated and agreed upon. ATTESTATION BY PHYSICIAN I have seen and examined the patient. I reviewed the documentation, medical decision making, and treatment plan as noted by the mid-level provider above. I agree with the findings and plan of care. ALISON GARCIA MD, [facility] Apr 21, 2025 13:17
== END 2025-04-21 12:15 | DRG 329 ==
LOC: EDH 19:15 → EDHIP 23:51 → 3BH 04-02 11:30 → 2AH 04-08 18:30 → 2BH 04-09 10:00 → 4BH 04-10 12:12
PROVIDERS: ADMIT Internal Medicine; ATTEND Internal Medicine
PROC: 0D1E0Z4 Bypass Large Intestine to Cutaneous, Open Approach (ICD-10-PCS; principal; 2025-04-09 07:55)
PROC: 0DN80ZZ Release Small Intestine, Open Approach (ICD-10-PCS; 2025-04-09 07:55)
PROC: BD13YZZ Fluoroscopy of Small Bowel using Other Contrast (ICD-10-PCS; 2025-04-09 07:55)
DX: K56.690 Other partial intestinal obstruction (principal); E43 Unspecified severe protein-calorie malnutrition; N18.6 End stage renal disease; I12.0 Hypertensive chronic kidney disease with stage 5 chronic kidney disease or end stage renal disease; J90 Pleural effusion, not elsewhere classified; R64 Cachexia; F31.4 Bipolar disorder, current episode depressed, severe, without psychotic features; Z51.5 Encounter for palliative care; B95.2 Enterococcus as the cause of diseases classified elsewhere; E86.9 Volume depletion, unspecified; N39.0 Urinary tract infection, site not specified; B96.20 Unspecified Escherichia coli [E. coli] as the cause of diseases classified elsewhere; E11.22 Type 2 diabetes mellitus with diabetic chronic kidney disease; G30.9 Alzheimer's disease, unspecified; J44.89 Other specified chronic obstructive pulmonary disease; T81.41XA Infection following a procedure, superficial incisional surgical site, initial encounter; Z68.1 Body mass index [BMI] 19.9 or less, adult; Z16.24 Resistance to multiple antibiotics; Z16.12 Extended spectrum beta lactamase (ESBL) resistance; J98.11 Atelectasis; F02.83 Dementia in other diseases classified elsewhere, unspecified severity, with mood disturbance; E11.649 Type 2 diabetes mellitus with hypoglycemia without coma; I25.10 Atherosclerotic heart disease of native coronary artery without angina pectoris; D64.9 Anemia, unspecified; K57.30 Diverticulosis of large intestine without perforation or abscess without bleeding; K56.51 Intestinal adhesions [bands], with partial obstruction; Z86.73 Personal history of transient ischemic attack (TIA), and cerebral infarction without residual deficits; D49.0 Neoplasm of unspecified behavior of digestive system
CPT/HCPCS: 36415; 36430; 36569; 45331; 71045; 74018; 74176; 74177; 76604; 80048; 80051; 80053; 80061; 80190; 80305; 81001; 82550; 82948; 83605; 83690; 83735; 83930; 83935; 84100; 84145; 84439; 84443; 84481; 84484; 85025; 85027; 85610; 85730; 86140; 86850; 86900; 86901; 86923; 87040; 87070; 87086; 87186; 88305; 88341; 88342; 92610; 93005; 93306; 93356; 96374; 96375; 99285; A4344; A4450; C1894; G0378; J0690; J0696; J1171; J1815; J1885; J2003; J2250; J2270; J2405; J2470; J2543; J2704; J3010; J3411; J3475; J3480; J3490; J7030; J7070; J7120; P9016; P9034; P9045; P9047; Q9963; Q9967; A4215; A4222; A4223; A4620; A4649; A4930; C1751; J1308; L0625